=== PATIENT | female | born 1960 | race African-American/Black ===

== ENCOUNTER 2017-03-27 13:39 | Emergency (ER) | payer MEDICARE, OTHER ==
[~2017-03-27] VITALS: Ht 162.6 cm; Wt 82.6 kg
--- NOTE | 2017-03-27 14:43 | Emergency Room Report ---
History of Present Illness General Chief Complaint: Overdose Source: Patient Present Illness HPI The patient presents after taking both morphine 15 mg and Dilaudid 4 mg that same time period when she realized she did this she started getting nauseated and queasy and also felt anxiety. She also felt very sleepy and this concerned her. The patient is being treated for ovarian cancer. She's had 7 courses of chemotherapy and is being evaluated for possible eighth. She denies any abdominal pain at this time. The patient denies any fevers, chills, dysuria, diarrhea, chest pain, shortness of breath. There's no headache and no weakness although she feels anxious and somewhat queasy. Allergies: Coded Allergies: ASPIRIN (Verified Allergy, Unknown, 03/27/17) LATEX (Verified Allergy, Unknown, 03/27/17) PINEAPPLE (Verified Allergy, Unknown, 03/27/17) STRAWBERRY (Verified Allergy, Unknown, 03/27/17) Patient History Past Medical History: see triage record Past Surgical History: other - portacath Social History Narrative at home Now: No Reviewed Nursing Documentation: PMH: Agreed, PSxH: Agreed Nursing Documentation-PMH Hx Hypertension: Yes Hx Cancer: Yes - OVARIAN Review of Systems All Other Systems: negative except mentioned in HPI Physical Exam Vital Signs Date Time Temp Pulse Resp B/P Pulse Ox O2 Delivery O2 Flow Rate FiO2 03/27/17 13:44 98.2 80 15 146/87 97 Room Air Sp02 EP Interpretation: reviewed, normal General Appearance: well appearing, no apparent distress, GCS 15 Head: normocephalic Eyes: bilateral eye PERRL, bilateral eye normal inspection ENT: moist mucus membranes Neck: supple Respiratory: lungs clear, normal breath sounds, other - port R chest Cardiovascular #1: regular rate, rhythm Cardiovascular #2: 2+ radial (R) Gastrointestinal: normal inspection, normal bowel sounds, non tender, no mass, non-distended Musculoskeletal: back normal, gait/station normal, normal range of motion Neurologic: alert, oriented x3, grossly normal Psychiatric: anxious Skin: normal inspection, warm/dry, other - alopecia Medical Decision Making ER Course Patient presents after taking both morphine and a lot of at the same time. She' s nauseated this time. Cardiac monitoring and observation is indicated at this time. In addition lab evaluation be undertaken. The patient will be treated with Zofran. EKG Diagnostic Results Rate: normal Rhythm: NSR ST Segments: no acute changes Rhythm Strip Diag. Results EP Interpretation: yes Rhythm: NSR, no PVC's, no ectopy Chest X-Ray Diagnostic Results Chest X-Ray Ordered: No Status: improved Oh Almonte M.D. Mar 27, 2017 14:43
[2017-03-27 14:55] LABS: APPEARANCE,URINE CLEAR; KETONES,URINE NEGATIVE (NEGATIVE); LEUKOCYTE ESTERASE ,URINE 1+ (NEGATIVE); NITRITE,URINE NEGATIVE (NEGATIVE); PH,URINE 6 (4.5-8.0); PROTEIN,URINE NEGATIVE (NEGATIVE); UROBILINOGEN,URINE NORMAL MG/DL (0.0-1.0)
[2017-03-27 15:09] LABS: BACTERIA,URINE FEW /HPF; RBC,URINE 0-2 /HPF (0 - 2); SQUAMOUS EPITHELIAL CELL,UR FEW /LPF (NONE/OCC); WBC,URINE 0-2 /HPF (0 - 2)
[2017-03-27] MEDS ORDERED: PROCHLORPERAZINE5 MG ORAL (15:29)
[2017-03-27] MEDS ORDERED: LOSARTAN POTASS50 MG ORAL (15:29)
[2017-03-27] MEDS ORDERED: KLOR-CON20 MEQ ORAL (15:29)
[2017-03-27] MEDS ORDERED: MORPHINE IR15 MG ORAL (15:29)
[2017-03-27] MEDS ORDERED: DILAUDID8 MG PO (15:29)
[2017-03-27] MEDS ORDERED: DYAZIDE1 CAP ORAL (15:29)
[2017-03-27 15:46] LABS: ALANINE AMINOTRANSFERASE 12 U/L (3-33); ALBUMIN/GLOBULIN RATIO 1.4 (1.0-2.7); ANION GAP 16 (5-15); ASPARTATE AMINO TRANSFERASE 14 U/L (5-40); CALCIUM 9.8 mg/dL (8.6-10.2); CARBON DIOXIDE 25 mEQ/L (20-30); CHLORIDE 98 mEQ/L (98-107); CREATININE 0.9 mg/dL (0.5-0.9); GLOMERULAR FILTRATION RATE > 60 mL/min (>60); HEMOLYSIS 7; LIPASE 14 U/L (< 60); POTASSIUM 3.6 mEQ/L (3.4-4.9); SODIUM 139 mEQ/L (135-145); TOTAL PROTEIN 7.3 g/dL (6.6-8.7)
[2017-03-27 15:50] LABS: BASOPHILS % (AUTO) 1.3 % (0.0-2.0); EOSINOPHILS % (AUTO) 1.6 % (0.0-3.0); LYMPHOCYTES % (AUTO) 32.4 % (20.0-45.0); MEAN CORPUSCULAR HEMOGLOBIN 34.2 PG (27.0-31.0); MEAN CORPUSCULAR VOLUME 103 FL (80-99); MEAN PLATELET VOLUME 7.9 FL (6.5-10.1); MONOCYTES % (AUTO) 8.7 % (1.0-10.0); PLATELET COUNT 170 K/UL (150-450); RED BLOOD COUNT 3.23 M/UL (4.20-5.40); RED CELL DISTRIBUTION WIDTH 16.1 % (11.6-14.8); WHITE BLOOD COUNT 4.5 K/UL (4.8-10.8)
[2017-03-27 16:00] VITALS: BP 120/53
[2017-03-27] MEDS ORDERED: Heparin 5000 units/ml inj IV ONE (17:00)
[2017-03-27] MEDS ORDERED: Heparin Sod 1000 units/ml 10ml INJ ONE (17:30)
[2017-03-27 17:50] VITALS: BP 120/53
== END 2017-03-27 17:50 | disposition home or self-care (01) ==
LOC: EMR 14:18
DX: R11.0 Nausea (principal); F11.90 Opioid use, unspecified, uncomplicated; I10 Essential (primary) hypertension; Z85.43 Personal history of malignant neoplasm of ovary; Z88.6 Allergy status to analgesic agent; Z88.0 Allergy status to penicillin; Z91.018 Allergy to other foods; Z91.040 Latex allergy status
CPT/HCPCS: 36415; 80053; 81003; 83690; 85025; 93005; 96360; 96374; 99284; J1644; J2405

== ENCOUNTER 2017-04-25 11:09 | Inpatient (IN) | payer MEDICARE, OTHER ==
[~2017-04-25] VITALS: Ht 165.1 cm; Wt 83.5 kg
[~2017-04-25 11:09] MED LIST: DILAUDID8 MG PO; DYAZIDE1 CAP ORAL; KLOR-CON20 MEQ ORAL; LOSARTAN POTASS50 MG ORAL; MORPHINE IR15 MG ORAL; PROCHLORPERAZINE5 MG ORAL
[2017-04-25] MEDS ORDERED: Morphine Sulfate 4mg/ml Inj IVP ONE (11:45)
--- NOTE | 2017-04-25 11:57 | Emergency Room Report ---
History of Present Illness General Chief Complaint: Abdominal Pain Source: Patient, Medical Record (Oh Almonte M.D.) Present Illness HPI Patient presents with vomiting and abdominal pain which began yesterday at 11 am. The pain is severe. Severe left lower quadrant. She unable to keep down any medications. Pain with some radiation to back. Unable to take pain medicines (or others) due to vomiting. The patient was seen by me recently. Has a history of ovarian cancer and is on chemotherapy. Also has a history of diverticulitis. She also has diarrhea. She's had C. difficile colitis in the past. I evaluated her last month for opiate excess and anxiety. She was improved. No chest pain, rashes (aside from alopecia), joint pain. Depression over dx. (Oh Almonte M.D.) Allergies: Coded Allergies: ASPIRIN (Verified Allergy, Unknown, 03/27/17) LATEX (Verified Allergy, Unknown, 03/27/17) PINEAPPLE (Verified Allergy, Unknown, 03/27/17) STRAWBERRY (Verified Allergy, Unknown, 03/27/17) Patient History Past Medical History: see triage record Social History: Denies: smoking Social History Narrative at home Last Menstrual Period: 10 Years Reviewed Nursing Documentation: PMH: Agreed, PSxH: Agreed (Oh Almonte M.D.) Nursing Documentation-PMH Past Medical History: No History, Except For Hx Hypertension: Yes Hx Cancer: Yes - OVARIAN Hx Gastrointestinal Problems: Yes - Diverticulitis, C. diff (Oh Almonte M.D.) Review of Systems All Other Systems: negative except mentioned in HPI (Oh Almonte M.D.) Physical Exam Vital Signs Date Time Temp Pulse Resp B/P Pulse Ox O2 Delivery O2 Flow Rate FiO2 04/25/17 11:17 98.2 97 16 146/95 98 Room Air Sp02 EP Interpretation: reviewed, normal General Appearance: well appearing, no apparent distress, GCS 15, non-toxic, obese Head: normocephalic Eyes: bilateral eye PERRL, bilateral eye normal inspection ENT: moist mucus membranes Neck: supple Respiratory: lungs clear, normal breath sounds Cardiovascular #1: regular rate, rhythm Cardiovascular #2: 2+ radial (R) Gastrointestinal: normal inspection, normal bowel sounds, no mass, non- distended, no rebound, guarding, tenderness - LLQ Musculoskeletal: back normal, gait/station normal, normal range of motion Neurologic: alert, oriented x3, grossly normal Psychiatric: depressed affect Skin: warm/dry, other - alopecia - hair growing back (Oh Almonte M.D.) Medical Decision Making Diagnostic Impression: Primary Impression: Abdominal pain Qualified Codes: R10.32 - Left lower quadrant pain Additional Impressions: Vomiting Qualified Codes: R11.2 - Nausea with vomiting, unspecified Diverticulitis Qualified Codes: K57.32 - Diverticulitis of large intestine without perforation or abscess without bleeding ER Course Patient with severe LLQ pain since yesterday. Ddx: diverticulitis, UTI, pyelonephritis, GItis, medication reaction, dehydration, opiate dependence, anxiety, cancer-related process amongst others. Evaluation with labs, CT abd pelvis. Hydration and analgesia. Ordered C. diff. Unable to do CT with IV contrast due to elevated creat. WBC normal. Lytes with renal insufficiency. Improved with analgesia and hydration. CT pending. Admit med, Dr. Pandya. Signed out to Dr. Rivera. Laboratory Tests Test 04/25/17 12:00 04/25/17 13:47 White Blood Count 8.3 K/UL (4.8-10.8) Red Blood Count 4.61 M/UL (4.20-5.40) Hemoglobin 15.8 G/DL (12.0-16.0) Hematocrit 47.9 % (37.0-47.0) H Mean Corpuscular Volume 104 FL (80-99) H Mean Corpuscular Hemoglobin 34.2 PG (27.0-31.0) H Mean Corpuscular Hemoglobin Concent 32.9 G/DL (32.0-36.0) Red Cell Distribution Width 11.9 % (11.6-14.8) Platelet Count 236 K/UL (150-450) Mean Platelet Volume 8.1 FL (6.5-10.1) Neutrophils (%) (Auto) 76.1 % (45.0-75.0) H Lymphocytes (%) (Auto) 17.3 % (20.0-45.0) L Monocytes (%) (Auto) 5.2 % (1.0-10.0) Eosinophils (%) (Auto) 1.0 % (0.0-3.0) Basophils (%) (Auto) 0.4 % (0.0-2.0) Prothrombin Time 10.0 SEC (9.30-11.50) Prothrombin Time INR 1.0 (0.9-1.1) PTT 23 SEC (23-33) Sodium Level 143 mEQ/L (135-145) Potassium Level 3.6 mEQ/L (3.4-4.9) Chloride Level 99 mEQ/L (98-107) Carbon Dioxide Level 28 mEQ/L (20-30) Anion Gap 16 (5-15) H Blood Urea Nitrogen 22 mg/dL (7-23) Creatinine 1.3 mg/dL (0.5-0.9) H Estimate Glomerular Filtration Rate 51.0 mL/min (>60) Glucose Level 142 mg/dL (74-106) H Calcium Level 10.7 mg/dL (8.6-10.2) H Total Bilirubin 0.5 mg/dL (0.0-1.2) Aspartate Amino Transferase (AST) 14 U/L (5-40) Alanine Aminotransferase (ALT) 9 U/L (3-33) Alkaline Phosphatase 53 U/L (35-104) Total Protein 8.0 g/dL (6.6-8.7) Albumin 4.7 g/dL (3.5-5.2) Globulin 3.3 g/dL Albumin/Globulin Ratio 1.4 (1.0-2.7) Lipase 11 U/L (< 60) Urine Color Yellow Urine Appearance Slightly cloudy Urine pH 5 (4.5-8.0) Urine Specific [place] 1.025 (1.005-1.035) Urine Protein 2+ (NEGATIVE) H Urine Glucose (UA) Negative (NEGATIVE) Urine Ketones 1+ (NEGATIVE) H Urine Occult Blood 4+ (NEGATIVE) H Urine Nitrite Negative (NEGATIVE) Urine Bilirubin Negative (NEGATIVE) Urine Urobilinogen 1 MG/DL (0.0-1.0) H Urine Leukocyte Esterase 2+ (NEGATIVE) H Urine RBC 5-10 /HPF (0 - 2) H Urine WBC 2-4 /HPF (0 - 2) Urine Squamous Epithelial Cells Moderate /LPF (NONE/OCC) H Urine Bacteria Occasional /HPF (NONE) (Oh Almonte M.D.) ER Course I assumed care of this patient from Dr. Almonte. This patient was awaiting results of the CT abdomen and pelvis. CT abdomen and pelvis showed diverticulitis. The patient was given Cipro and Flagyl. She's also given Zofran. She is admitted for further evaluation and treatment. Labs Test 04/25/17 12:00 04/25/17 13:47 White Blood Count 8.3 K/UL (4.8-10.8) Red Blood Count 4.61 M/UL (4.20-5.40) Hemoglobin 15.8 G/DL (12.0-16.0) Hematocrit 47.9 % (37.0-47.0) Mean Corpuscular Volume 104 FL (80-99) Mean Corpuscular Hemoglobin 34.2 PG (27.0-31.0) Mean Corpuscular Hemoglobin Concent 32.9 G/DL (32.0-36.0) Red Cell Distribution Width 11.9 % (11.6-14.8) Platelet Count 236 K/UL (150-450) Mean Platelet Volume 8.1 FL (6.5-10.1) Neutrophils (%) (Auto) 76.1 % (45.0-75.0) Lymphocytes (%) (Auto) 17.3 % (20.0-45.0) Monocytes (%) (Auto) 5.2 % (1.0-10.0) Eosinophils (%) (Auto) 1.0 % (0.0-3.0) Basophils (%) (Auto) 0.4 % (0.0-2.0) Prothrombin Time 10.0 SEC (9.30-11.50) Prothromb Time International Ratio 1.0 (0.9-1.1) Activated Partial Thromboplast Time 23 SEC (23-33) Sodium Level 143 mEQ/L (135-145) Potassium Level 3.6 mEQ/L (3.4-4.9) Chloride Level 99 mEQ/L (98-107) Carbon Dioxide Level 28 mEQ/L (20-30) Anion Gap 16 (5-15) Blood Urea Nitrogen 22 mg/dL (7-23) Creatinine 1.3 mg/dL (0.5-0.9) Estimat Glomerular Filtration Rate 51.0 mL/min (>60) Glucose Level 142 mg/dL (74-106) Calcium Level 10.7 mg/dL (8.6-10.2) Total Bilirubin 0.5 mg/dL (0.0-1.2) Aspartate Amino Transf (AST/SGOT) 14 U/L (5-40) Alanine Aminotransferase (ALT/SGPT) 9 U/L (3-33) Alkaline Phosphatase 53 U/L (35-104) Total Protein 8.0 g/dL (6.6-8.7) Albumin 4.7 g/dL (3.5-5.2) Globulin 3.3 g/dL Albumin/Globulin Ratio 1.4 (1.0-2.7) Lipase 11 U/L (< 60) Urine Color Yellow Urine Appearance Slightly cloudy Urine pH 5 (4.5-8.0) Urine Specific [place] 1.025 (1.005-1.035) Urine Protein 2+ (NEGATIVE) Urine Glucose (UA) Negative (NEGATIVE) Urine Ketones 1+ (NEGATIVE) Urine Occult Blood 4+ (NEGATIVE) Urine Nitrite Negative (NEGATIVE) Urine Bilirubin Negative (NEGATIVE) Urine Urobilinogen 1 MG/DL (0.0-1.0) Urine Leukocyte Esterase 2+ (NEGATIVE) Urine RBC 5-10 /HPF (0 - 2) Urine WBC 2-4 /HPF (0 - 2) Urine Squamous Epithelial Cells Moderate /LPF (NONE/OCC) Urine Bacteria Occasional /HPF (NONE) (RAVINDRA CEBALLOS D.O.) EKG Diagnostic Results Rate: normal Rhythm: NSR ST Segments: no acute changes (Oh Almonte M.D.) Rhythm Strip Diag. Results EP Interpretation: yes Rhythm: NSR, no PVC's, no ectopy (Oh Almonte M.D.) Last Vital Signs Date Time Temp Pulse Resp B/P Pulse Ox O2 Delivery O2 Flow Rate FiO2 04/25/17 20:00 96.9 74 18 134/73 Room Air 04/25/17 18:10 98 Status: improved (Oh Almonte M.D.) Disposition: ADMITTED INPATIENT Condition: Serious Referrals: NON PHYSICIAN (PCP) Oh Almonte M.D. Apr 25, 2017 11:57 RAVINDRA CEBALLOS D.O. Apr 25, 2017 16:28
[2017-04-25] MEDS ORDERED: PROTONIX40 MG ORAL (11:59)
[2017-04-25] MEDS ORDERED: MAXZIDE 37.5 M1 EAC1 PO (11:59)
[2017-04-25] MEDS ORDERED: FUROSEMIDE20 M1 ORAL (11:59)
[2017-04-25] MEDS ORDERED: COLACE100 MG ORAL (11:59)
[2017-04-25] MEDS ORDERED: COZAAR50 MG ORAL (11:59)
[2017-04-25] MEDS ORDERED: DEXILANT60 MG ORAL (12:01)
[2017-04-25] MEDS ORDERED: IMODIUM A-D2 M2 PO (12:01)
[2017-04-25] MEDS ORDERED: ZOFRAN8 MG ORAL (12:01)
[2017-04-25] MEDS ORDERED: VENTOLIN HFA18 GM INH (12:03)
[2017-04-25] MEDS ORDERED: BREO ELLIPTA 11 EACH IH (12:03)
[2017-04-25 12:18] VITALS: BP 148/79
[2017-04-25 12:23] LABS: BASOPHILS % (AUTO) 0.4 % (0.0-2.0); LYMPHOCYTES % (AUTO) 17.3 % (20.0-45.0); MEAN CORPUSCULAR HEMOGLOBIN 34.2 PG (27.0-31.0); MEAN CORPUSCULAR HGB CONC 32.9 G/DL (32.0-36.0); MEAN CORPUSCULAR VOLUME 104 FL (80-99); MEAN PLATELET VOLUME 8.1 FL (6.5-10.1); MONOCYTES % (AUTO) 5.2 % (1.0-10.0); NEUTROPHILS % (AUTO) 76.1 % (45.0-75.0); PLATELET COUNT 236 K/UL (150-450); RED BLOOD COUNT 4.61 M/UL (4.20-5.40); RED CELL DISTRIBUTION WIDTH 11.9 % (11.6-14.8); WHITE BLOOD COUNT 8.3 K/UL (4.8-10.8)
[2017-04-25 12:36] LABS: ALBUMIN/GLOBULIN RATIO 1.4 (1.0-2.7); CALCIUM 10.7 mg/dL (8.6-10.2); CREATININE 1.3 mg/dL (0.5-0.9); POTASSIUM 3.6 mEQ/L (3.4-4.9)
[2017-04-25 14:00] VITALS: BP 137/85
[2017-04-25 14:11] LABS: APPEARANCE,URINE SLIGHTLY CLOUDY; KETONES,URINE 1+ (NEGATIVE); LEUKOCYTE ESTERASE ,URINE 2+ (NEGATIVE); NITRITE,URINE NEGATIVE (NEGATIVE); PH,URINE 5 (4.5-8.0); PROTEIN,URINE 2+ (NEGATIVE); UROBILINOGEN,URINE 1 MG/DL (0.0-1.0)
[2017-04-25 14:29] LABS: BACTERIA,URINE OCCASIONAL /HPF; SQUAMOUS EPITHELIAL CELL,UR MODERATE /LPF (NONE/OCC)
[2017-04-25] MEDS ORDERED: Morphine Sulfate 4mg/ml Inj IVP PRN (16:15)
[2017-04-25] MEDS ORDERED: metroNIDAZOLE 500mg 100 ML IVPB ONE (16:30)
[2017-04-25] MEDS ORDERED: Morphine Sulfate 2mg/ml Inj IM PRN (16:45)
[2017-04-25 17:08] LABS: HEMOGLOBIN A1C 5.3 % (< 6.0)
[2017-04-25 17:16] LABS: THYROID STIMULATING HORMONE 3.08 uIU/mL (0.300-4.500)
[2017-04-25 17:17] VITALS: BP 130/85
[2017-04-25 18:05] VITALS: BP 116/68
[2017-04-25 20:00] VITALS: BP 134/73
[2017-04-25] MEDS: D5NS 1,000 ML IV SCH (20:01)
[2017-04-25] MEDS ORDERED: Docusate 100mg cap ORAL PRN (21:15)
--- NOTE | 2017-04-25 22:43 | Consultation ---
Consult Note Consult Note ID DIC # [id number] TAMEKA LITTLEJOHN M.D. Apr 25, 2017 22:43
[2017-04-25] MEDS: Morphine Sulfate 2mg/ml Inj IVP PRN (23:03)
[2017-04-25] MEDS: metroNIDAZOLE 500mg 100 ML IVPB SCH (23:04)
[2017-04-25] MEDS: Heparin 5000 units/ml inj SUBQ SCH (23:05)
[2017-04-26] VITALS: BP 130/73
[2017-04-26 04:00] VITALS: BP 139/84
[2017-04-26] MEDS: Morphine Sulfate 2mg/ml Inj IVP PRN ×3 (04:24→18:59)
[2017-04-26] MEDS: D5NS 1,000 ML IV SCH ×2 (05:05→18:30)
[2017-04-26] MEDS: metroNIDAZOLE 500mg 100 ML IVPB SCH ×2 (05:06→18:59)
[2017-04-26] MEDS: NovoLOG Insulin Flexpen SUBQ SCH ×4 (06:30→20:55)
[2017-04-26 06:53] LABS: BASOPHILS % (AUTO) 0.6 % (0.0-2.0); EOSINOPHILS % (AUTO) 6.1 % (0.0-3.0); LYMPHOCYTES % (AUTO) 29.4 % (20.0-45.0); MEAN CORPUSCULAR HEMOGLOBIN 35.4 PG (27.0-31.0); MEAN CORPUSCULAR HGB CONC 33.5 G/DL (32.0-36.0); MEAN CORPUSCULAR VOLUME 106 FL (80-99); MEAN PLATELET VOLUME 7.4 FL (6.5-10.1); MONOCYTES % (AUTO) 7.4 % (1.0-10.0); NEUTROPHILS % (AUTO) 56.6 % (45.0-75.0); PLATELET COUNT 162 K/UL (150-450); RED BLOOD COUNT 3.33 M/UL (4.20-5.40); RED CELL DISTRIBUTION WIDTH 12.1 % (11.6-14.8); WHITE BLOOD COUNT 5.9 K/UL (4.8-10.8)
[2017-04-26 06:56] LABS: ALANINE AMINOTRANSFERASE 8 U/L (3-33); ALBUMIN/GLOBULIN RATIO 1.2 (1.0-2.7); ANION GAP 12 (5-15); ASPARTATE AMINO TRANSFERASE 13 U/L (5-40); CALCIUM 9.4 mg/dL (8.6-10.2); CARBON DIOXIDE 27 mEQ/L (20-30); CHLORIDE 106 mEQ/L (98-107); CREATININE 0.9 mg/dL (0.5-0.9); GLOMERULAR FILTRATION RATE > 60 mL/min (>60); HEMOLYSIS 4; POTASSIUM 3.4 mEQ/L (3.4-4.9); SODIUM 145 mEQ/L (135-145); TOTAL PROTEIN 6.4 g/dL (6.6-8.7)
--- NOTE | 2017-04-26 08:00 | Consultation ---
DATE OF CONSULTATION: 04/25/2017 INFECTIOUS DISEASES CONSULTATION CONSULTING PHYSICIAN: Shawn Boyd M.D. REFERRING PHYSICIAN: Christos Pandya M.D. REASON FOR CONSULTATION: Evaluation of the patient for diarrhea and antibiotic management. HISTORY OF PRESENT ILLNESS: The patient is a 57-year-old female with multiple medical problems as listed below, who was admitted due to nausea, vomiting, and diarrhea x1 day. Infectious Disease consultation has been requested for further evaluation of the patient's antibiotic management. PAST MEDICAL HISTORY: 1. Hypertension. 2. History of diverticulitis. 3. History of ovarian cancer, status post chemo (last due 02/2017). 4. History of diabetes. 5. Status post placement. MEDICATIONS: Cipro and Flagyl. ALLERGIES: No drug allergies to antibiotics. FAMILY HISTORY: Noncontributory. REVIEW OF SYSTEMS: HEENT: No recent change in vision or hearing. Pulmonary: No cough or shortness of breath. Cardiovascular: No chest pain or palpitations. Gastrointestinal: As mentioned above. : No dysuria. PHYSICAL EXAMINATION: VITAL SIGNS: Temperature 96.9, blood pressure 134/72, pulse 74, and respiratory rate 18. HEENT: Mild pale conjunctivae. NECK: No lymphadenopathy. CHEST: Clear. HEART: S1 and S2. ABDOMEN: Soft. Mild generalized tenderness hyperactive. EXTREMITIES: No cyanosis. NEUROLOGIC: Awake and alert. LABORATORY DATA: WBC 8.8, hemoglobin 15, and platelets 236,000. Urinalysis, 5 to 10 red blood cells and 2 to 4 white blood cells. BUN 22 and creatinine 1.3. Liver function tests are unremarkable. ASSESSMENT: The patient is a 57-year-old female with multiple medical problems, who also has, 1. Nausea and vomiting. 2. Diarrhea. 3. Rule out Clostridium difficile/Salmonella and Shigella. 4. Most likely the above is due to viral enteritis. PLAN: 1. We will continue the patient on Cipro and Flagyl day #10/10. 2. Monitor CBC. 3. Monitor BMP. 4. Monitor cultures (stool and blood). 5. Stool for C. difficile. 6. We will follow up CT scan of the abdomen result. Based on the patient's clinical course and labs, we will do further recommendations. Thank you, Dr. Pandya ,for allowing me to participate in the care of this patient. I will follow the patient with you during this hospitalization. Shawn Boyd M.D. DR: GENE JOB#: [id number] CC:
--- NOTE | 2017-04-26 08:30 | Consultation ---
DATE OF CONSULTATION: 04/26/2017 GASTROENTEROLOGY CONSULTATION CHIEF COMPLAINT: Nausea, vomiting, and abdominal pain. HISTORY OF PRESENT ILLNESS: The patient is a very pleasant unfortunate 57-year-old female with past medical history of ovarian cancer diagnosed a year ago. The patient is status post chemo and surgery. The patient also has a history of diverticulitis presented to the hospital with complaint of one day of abdominal pain, nausea, and vomiting. According to her, this was very similar to her prior diverticulitis symptoms. Last colonoscopy was in 2010. No rectal bleeding. PAST MEDICAL HISTORY: 1. History of ovarian cancer. 2. Diabetes. 3. Hypertension. 4. Diverticulitis. 5. Questionable C. difficile colitis. ALLERGIES: Allergy to Lasix, aspirin, strawberries, and pineapples. MEDICATIONS: Please see medication reconciliation list. SOCIAL HISTORY: Denies any tobacco, alcohol, or illicit drug abuse. FAMILY HISTORY: Noncontributory. PAST SURGICAL HISTORY: Hysterectomy, oophorectomy, appendectomy, and cholecystectomy. REVIEW OF SYSTEMS: Ten point review of system was performed and pertinent positives in HPI. PHYSICAL EXAMINATION: GENERAL: This is a well-developed female. VITAL SIGNS: Temperature 97.7 degrees, pulse 71 , respirations 18, and blood pressure is 129/84. HEENT: Normocephalic and atraumatic. Sclerae anicteric. NECK: Supple. No lymphadenopathy. CARDIOVASCULAR: Regular rate and rhythm. Plus S1 and S2. LUNGS: Clear to auscultation bilaterally. ABDOMEN: There is a scar in the midline from prior abdominal surgeries. Abdomen is soft. Bowel sounds are hypoactive. There is tenderness to palpation in epigastric, right upper quadrant, and left lower quadrant. No rebound. No guarding. No peritoneal sign. EXTREMITIES: No cyanosis. No clubbing. No edema. LABORATORY DATA: White count is 8.3, hemoglobin 15, hematocrit 47, and platelet count is 236,000. Chem-7, BUN is 22 and creatinine is 1.3. Liver function tests grossly normal. ASSESSMENT: This is a 57-year-old female with acute onset of nausea, vomiting, and history of diverticulitis. According to the patient, it seems like another diverticulitis to her. PLAN: To give the patient clear liquid diet. Antibiotics per ID. Followup on CT, which has been ordered and to get the results of it. Hold off any colonoscopy at this time. I want to thank, Dr. Pandya, for this kind referral. Marcus Chavez M.D. DR: JONES JOB#: [id number] CC: Christos Pandya M.D.; Fax#: [phone]
[2017-04-26] MEDS: Losartan 50mg tab ORAL SCH (09:24)
[2017-04-26] MEDS: Heparin 5000 units/ml inj SUBQ SCH ×2 (09:30→20:55)
--- NOTE | 2017-04-26 10:32 | History & Physical ---
History and Physical History & Physicial Patient is seen and examined. Full Dictation in progress Christos Pandya MD Apr 26, 2017 10:32
[2017-04-26] MEDS ORDERED: D5NS 1000ml IV ONE (10:39)
[2017-04-26] MEDS ORDERED: Tubing IV Secondary IV ONE ×2 (10:39→17:00)
--- NOTE | 2017-04-26 11:39 | Infectious Diseases Prog Note ---
Assessment/Plan Assessment/Plan ASSESSMENT: The patient is a 57-year-old female with Nausea and vomiting Diarrhea ? viral enteritis vs diverticulitis Clostridium difficile : neg Hypertension. History of diverticulitis. History of ovarian cancer, status post chemo (last due 02/2017). History of diabetes. Status post Porth C Cath placement PLAN: cont pt on Cipro and Flagyl day # 2 / 5 Monitor CBC Monitor BMP. Monitor cultures (stool and blood). CT scan of the abdomen result :P GI is following Subjective Allergies: Coded Allergies: ASPIRIN (Verified Allergy, Unknown, 03/27/17) LATEX (Verified Allergy, Unknown, 03/27/17) PINEAPPLE (Verified Allergy, Unknown, 03/27/17) STRAWBERRY (Verified Allergy, Unknown, 03/27/17) Subjective afebrile Objective Vital Signs Last 24 Hour Vital Signs Date Time Temp Pulse Resp B/P Pulse Ox O2 Delivery O2 Flow Rate FiO2 04/26/17 09:24 139/84 04/26/17 04:00 97.7 71 18 139/84 98 Room Air 04/26/17 00:00 97.5 68 16 130/73 98 Room Air 04/25/17 20:00 96.9 74 18 134/73 Room Air 04/25/17 18:10 73 13 116/68 98 Room Air 04/25/17 18:05 99.0 73 13 116/68 98 Room Air 04/25/17 17:17 99.1 82 18 130/85 100 Room Air 04/25/17 14:00 78 17 137/85 99 Room Air 04/25/17 12:18 97.8 91 17 148/79 99 Room Air Height (Feet): 5 Height (Inches): 5.00 Weight (Pounds): 184 HEENT: atraumatic Respiratory/Chest: normal breath sounds Cardiovascular: regular rhythm Abdomen: no organomegaly Microbiology Date/Time Source Procedure Growth Status 04/25/17 18:00 Stool Clostridium difficile Toxin Assay - Final Complete Laboratory Tests Test 04/25/17 12:00 04/25/17 13:47 04/25/17 18:00 04/25/17 20:55 White Blood Count 8.3 K/UL (4.8-10.8) Red Blood Count 4.61 M/UL (4.20-5.40) Hemoglobin 15.8 G/DL (12.0-16.0) Hematocrit 47.9 % (37.0-47.0) H Mean Corpuscular Volume 104 FL (80-99) H Mean Corpuscular Hemoglobin 34.2 PG (27.0-31.0) H Mean Corpuscular Hemoglobin Concent 32.9 G/DL (32.0-36.0) Red Cell Distribution Width 11.9 % (11.6-14.8) Platelet Count 236 K/UL (150-450) Mean Platelet Volume 8.1 FL (6.5-10.1) Neutrophils (%) (Auto) 76.1 % (45.0-75.0) H Lymphocytes (%) (Auto) 17.3 % (20.0-45.0) L Monocytes (%) (Auto) 5.2 % (1.0-10.0) Eosinophils (%) (Auto) 1.0 % (0.0-3.0) Basophils (%) (Auto) 0.4 % (0.0-2.0) Prothrombin Time 10.0 SEC (9.30-11.50) Prothromb Time International Ratio 1.0 (0.9-1.1) Activated Partial Thromboplast Time 23 SEC (23-33) Sodium Level 143 mEQ/L (135-145) Potassium Level 3.6 mEQ/L (3.4-4.9) Chloride Level 99 mEQ/L (98-107) Carbon Dioxide Level 28 mEQ/L (20-30) Anion Gap 16 (5-15) H Blood Urea Nitrogen 22 mg/dL (7-23) Creatinine 1.3 mg/dL (0.5-0.9) H Estimat Glomerular Filtration Rate 51.0 mL/min (>60) Glucose Level 142 mg/dL (74-106) H Hemoglobin A1c 5.3 % (< 6.0) Calcium Level 10.7 mg/dL (8.6-10.2) H Total Bilirubin 0.5 mg/dL (0.0-1.2) Aspartate Amino Transf (AST/SGOT) 14 U/L (5-40) Alanine Aminotransferase (ALT/SGPT) 9 U/L (3-33) Alkaline Phosphatase 53 U/L (35-104) Total Protein 8.0 g/dL (6.6-8.7) Albumin 4.7 g/dL (3.5-5.2) Globulin 3.3 g/dL Albumin/Globulin Ratio 1.4 (1.0-2.7) Lipase 11 U/L (< 60) Thyroid Stimulating Hormone (TSH) 3.080 uIU/mL (0.300-4.500) Urine Color Yellow Urine Appearance Slightly cloudy Urine pH 5 (4.5-8.0) Urine Specific [place] 1.025 (1.005-1.035) Urine Protein 2+ (NEGATIVE) H Urine Glucose (UA) Negative (NEGATIVE) Urine Ketones 1+ (NEGATIVE) H Urine Occult Blood 4+ (NEGATIVE) H Urine Nitrite Negative (NEGATIVE) Urine Bilirubin Negative (NEGATIVE) Urine Urobilinogen 1 MG/DL (0.0-1.0) H Urine Leukocyte Esterase 2+ (NEGATIVE) H Urine RBC 5-10 /HPF (0 - 2) H Urine WBC 2-4 /HPF (0 - 2) Urine Squamous Epithelial Cells Moderate /LPF (NONE/OCC) H Urine Bacteria Occasional /HPF (NONE) Stool Occult Blood Pending Lactic Acid Level 1.50 mmol/L (0.66-2.22) Test 04/26/17 05:15 White Blood Count 5.9 K/UL (4.8-10.8) Red Blood Count 3.33 M/UL (4.20-5.40) L Hemoglobin 11.8 G/DL (12.0-16.0) L Hematocrit 35.2 % (37.0-47.0) L Mean Corpuscular Volume 106 FL (80-99) H Mean Corpuscular Hemoglobin 35.4 PG (27.0-31.0) H Mean Corpuscular Hemoglobin Concent 33.5 G/DL (32.0-36.0) Red Cell Distribution Width 12.1 % (11.6-14.8) Platelet Count 162 K/UL (150-450) Mean Platelet Volume 7.4 FL (6.5-10.1) Neutrophils (%) (Auto) 56.6 % (45.0-75.0) Lymphocytes (%) (Auto) 29.4 % (20.0-45.0) Monocytes (%) (Auto) 7.4 % (1.0-10.0) Eosinophils (%) (Auto) 6.1 % (0.0-3.0) H Basophils (%) (Auto) 0.6 % (0.0-2.0) Sodium Level 145 mEQ/L (135-145) Potassium Level 3.4 mEQ/L (3.4-4.9) Chloride Level 106 mEQ/L (98-107) Carbon Dioxide Level 27 mEQ/L (20-30) Anion Gap 12 (5-15) Blood Urea Nitrogen 21 mg/dL (7-23) Creatinine 0.9 mg/dL (0.5-0.9) Estimat Glomerular Filtration Rate > 60 mL/min (>60) Glucose Level 100 mg/dL (74-106) Calcium Level 9.4 mg/dL (8.6-10.2) Total Bilirubin 0.4 mg/dL (0.0-1.2) Aspartate Amino Transf (AST/SGOT) 13 U/L (5-40) Alanine Aminotransferase (ALT/SGPT) 8 U/L (3-33) Alkaline Phosphatase 42 U/L (35-104) Total Protein 6.4 g/dL (6.6-8.7) L Albumin 3.6 g/dL (3.5-5.2) Globulin 2.8 g/dL Albumin/Globulin Ratio 1.2 (1.0-2.7) Current Medications Medications (Trade) Dose Ordered Sig/Kermit Route PRN Reason Start Time Stop Time Status Last Admin Dose Admin Acetaminophen (Tylenol) 650 mg Q4H PRN ORAL Mild Pain/Temp > 100.5 04/25/17 16:45 05/25/17 16:44 Ciprofloxacin (Cipro 400mg/ 200ml premix bag) 200 ml @ 200 mls/hr Q12HR IV 04/26/17 09:00 05/03/17 08:59 04/26/17 09:30 Dextrose (Dextrose 50%) STAT PRN IV Hypoglycemia 04/25/17 21:15 05/25/17 21:14 Dextrose/Sodium Chloride (D5ns) 1,000 ml @ 80 mls/hr [id number] IV 04/25/17 17:30 05/25/17 17:29 04/26/17 05:05 Docusate Sodium (Colace) 100 mg TIDPRN PRN ORAL Constipation 04/25/17 21:15 05/25/17 21:14 Furosemide (Lasix) 20 mg DAILY ORAL 04/26/17 09:00 05/26/17 08:59 04/26/17 09:23 Heparin Sodium (Porcine) 5000 units 5,000 units EVERY 12 HOURS SUBQ 04/25/17 21:00 05/25/17 20:59 04/26/17 09:30 Insulin Aspart (NovoLOG) BEFORE MEALS AND HS SUBQ 04/26/17 06:30 05/26/17 06:29 Losartan Potassium (Cozaar) 50 mg DAILY ORAL 04/26/17 09:00 05/26/17 08:59 04/26/17 09:24 Metronidazole 100 ml @ 100 mls/hr Q8HR IVPB 04/25/17 22:00 05/02/17 21:59 04/26/17 05:06 Morphine Sulfate (Morphine Sulfate) 2 mg Q4H PRN IVP MOD-SEV PAIN 04/25/17 21:30 05/02/17 21:29 04/26/17 10:03 Ondansetron HCl (Zofran) 4 mg Q6H PRN IVP Nausea & Vomiting 04/25/17 21:15 05/25/17 21:14 Pantoprazole (Protonix) 40 mg DAILY ORAL 04/25/17 18:00 05/25/17 17:59 04/26/17 09:23 Potassium Chloride (K-Dur) 20 meq DAILY ORAL 04/26/17 09:00 05/26/17 08:59 04/26/17 09:23 TAMEKA LITTLEJOHN M.D. Apr 26, 2017 11:39
[2017-04-26 12:00] VITALS: BP 132/70
--- NOTE | 2017-04-26 13:43 | General Progress Note ---
Assessment/Plan Status: stable Assessment/Plan 1- Acute Diverticulitis 2- C-diff colitis- history of 3- Ovarian CA survivor 4- HTN 5- GI-DVT prophylaxia Plan: GI- Dr Chavez notified current antibiotics Subjective ROS Limited/Unobtainable: No Constitutional: Reports: malaise, other - mild abd pain HEENT: Reports: no symptoms Cardiovascular: Reports: no symptoms Gastrointestinal/Abdominal: Reports: abdomen distended, abdominal pain Allergies: Coded Allergies: ASPIRIN (Verified Allergy, Unknown, 03/27/17) LATEX (Verified Allergy, Unknown, 03/27/17) PINEAPPLE (Verified Allergy, Unknown, 03/27/17) STRAWBERRY (Verified Allergy, Unknown, 03/27/17) Objective Last 24 Hour Vital Signs Date Time Temp Pulse Resp B/P Pulse Ox O2 Delivery O2 Flow Rate FiO2 04/26/17 12:00 97.4 68 20 132/70 98 Room Air 04/26/17 09:24 139/84 04/26/17 04:00 97.7 71 18 139/84 98 Room Air 04/26/17 00:00 97.5 68 16 130/73 98 Room Air 04/25/17 20:00 96.9 74 18 134/73 Room Air 04/25/17 18:10 73 13 116/68 98 Room Air 04/25/17 18:05 99.0 73 13 116/68 98 Room Air 04/25/17 17:17 99.1 82 18 130/85 100 Room Air 04/25/17 14:00 78 17 137/85 99 Room Air Intake and Output 04/25/17 04/26/17 19:00 07:00 Intake Total 1000 ml 920 ml Output Total 50 ml Balance 950 ml 920 ml Intake IV Total 1000 ml 920 ml Output Emesis 50 ml # Voids 1 Laboratory Tests 04/25/17 13:47: Urine Color Yellow, Urine Appearance Slightly cloudy, Urine pH 5, Urine Specific [place] 1.025, Urine Protein 2+H, Urine Glucose (UA) Negative, Urine Ketones 1+H, Urine Occult Blood 4+H, Urine Nitrite Negative, Urine Bilirubin Negative, Urine Urobilinogen 1H, Urine Leukocyte Esterase 2+H, Urine RBC 5-10H, Urine WBC 2-4, Urine Squamous Epithelial Cells ModerateH, Urine Bacteria Occasional 04/25/17 18:00: Stool Occult Blood [Pending] 04/25/17 20:55: Lactic Acid Level 1.50 04/26/17 05:15: White Blood Count 5.9, Red Blood Count 3.33L, Hemoglobin 11.8L, Hematocrit 35.2L , Mean Corpuscular Volume 106H, Mean Corpuscular Hemoglobin 35.4H, Mean Corpuscular Hemoglobin Concent 33.5, Red Cell Distribution Width 12.1, Platelet Count 162, Mean Platelet Volume 7.4, Neutrophils (%) (Auto) 56.6, Lymphocytes (% ) (Auto) 29.4, Monocytes (%) (Auto) 7.4, Eosinophils (%) (Auto) 6.1H, Basophils (%) (Auto) 0.6, Sodium Level 145, Potassium Level 3.4, Chloride Level 106, Carbon Dioxide Level 27, Anion Gap 12, Blood Urea Nitrogen 21, Creatinine 0.9, Estimat Glomerular Filtration Rate > 60, Glucose Level 100, Calcium Level 9.4, Total Bilirubin 0.4, Aspartate Amino Transf (AST/SGOT) 13, Alanine Aminotransferase (ALT/SGPT) 8, Alkaline Phosphatase 42, Total Protein 6.4L, Albumin 3.6, Globulin 2.8, Albumin/Globulin Ratio 1.2 Height (Feet): 5 Height (Inches): 5.00 Weight (Pounds): 184 General Appearance: alert EENT: PERRL/EOMI Neck: supple Cardiovascular: normal peripheral pulses Abdomen: guarding 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
--- NOTE | 2017-04-26 15:30 | History and Physical Report ---
DATE OF ADMISSION: 04/25/2017 SOURCE OF INFORMATION: Patient and EMR. HISTORY OF PRESENT ILLNESS: The patient is a pleasant 57-year-old female. She has known diagnosis of diverticulitis. She reported pain in the lower abdomen started 2 nights ago. The pain reported acute. No radiation. Associated with hematemesis, hematochezia, diarrhea, and nausea. The patient denies any chills or fever. The patient denies any headache or blurry vision. REVIEW OF SYSTEMS: All 9 elements of review of systems reviewed with the patient. Pertinent positives and negatives reported as above. PAST MEDICAL HISTORY: Diverticulitis, staged 4 ovarian cancer, status post hysterectomy and oophorectomy, and hypertension. PAST SURGICAL HISTORY: Hysterectomy and oophorectomy about 5-7 months ago. MEDICATIONS: Home medications including, but not limited to, potassium chloride, morphine sulfate, Dexilant, Ventolin, and ALLERGIES: Aspirin, latex, pineapple, strawberry. SOCIAL HISTORY: The patient denies history of illicit drug abuse, smoking, or alcohol abuse. The patient is single. She has no children. FAMILY HISTORY: Reviewed, noncontributory. PHYSICAL EXAMINATION: VITAL SIGNS: Blood pressure 140/80, temperature 98.2 degrees, pulse oximetry 98% on room air, respiratory rate 16, and pulse rate 95 to 100. HEAD AND NECK: Atraumatic and normocephalic. CHEST: Clear to auscultation. HEART: S1 and S2. Regular rate and rhythm. ABDOMEN: Positive for tenderness in the lower abdomen. No rebound tenderness. MUSCULOSKELETAL: No gross focal motor deficit. NEUROLOGY: The patient is awake, alert, and oriented x3. PSYCHIATRIC: Mood and affect appropriate and normal. LABORATORY DATA: Lab results dated 04/25/2017 showed WBC 8.3, hemoglobin 15.8, and platelets 238,000. Sodium 143, potassium 3.6, BUN 22, and creatinine 1.3. Liver function tests are within normal limits. ASSESSMENT: 1. Acute diverticulitis. 2. Clostridium difficile colitis - history of 3. Acute renal failure. 4. Ovarian cancer, status post hysterectomy and oophorectomy. 5. Hypertension. 6. Gastrointestinal and deep vein thrombosis prophylaxis. PLAN OF CARE: Continue with the current intravenous antibiotics. Continue with NPO status. GI, Dr. Chavez was consulted. Christos Pandya M.D. DR: FRANTZ JOB#: [id number] CC: SRIDHAR
[2017-04-26 16:09] VITALS: BP 113/74
[2017-04-26 20:00] VITALS: BP 125/76
[2017-04-27] VITALS: BP 118/69
[2017-04-27] MEDS: metroNIDAZOLE 500mg 100 ML IVPB SCH ×4 (00:56→22:15)
[2017-04-27] MEDS: Morphine Sulfate 2mg/ml Inj IVP PRN (00:57)
[2017-04-27 04:00] VITALS: BP 116/69
[2017-04-27] MEDS: NovoLOG Insulin Flexpen SUBQ SCH ×4 (06:15→20:45)
[2017-04-27] MEDS: D5NS 1,000 ML IV SCH ×2 (06:15→19:30)
[2017-04-27 08:36] VITALS: BP 119/70
[2017-04-27] MEDS: Losartan 50mg tab ORAL SCH (09:00)
[2017-04-27] MEDS: Heparin 5000 units/ml inj SUBQ SCH ×2 (09:00→20:26)
--- NOTE | 2017-04-27 09:09 | General Progress Note ---
Assessment/Plan Assessment/Plan 1. History of ovarian cancer. 2. Diabetes. 3. Hypertension. 4. Diverticulitis. 5. Questionable C. difficile colitis. advance diet fu stool studies fu CT abx per ID Subjective ROS Limited/Unobtainable: Yes Allergies: Coded Allergies: ASPIRIN (Verified Allergy, Unknown, 03/27/17) LATEX (Verified Allergy, Unknown, 03/27/17) PINEAPPLE (Verified Allergy, Unknown, 03/27/17) STRAWBERRY (Verified Allergy, Unknown, 03/27/17) Subjective feeling better Objective Last 24 Hour Vital Signs Date Time Temp Pulse Resp B/P Pulse Ox O2 Delivery O2 Flow Rate FiO2 04/27/17 08:36 97.2 65 20 119/70 100 Room Air 04/27/17 04:00 97.7 56 20 116/69 100 Room Air 04/27/17 00:00 97.5 58 20 118/69 100 Room Air 04/26/17 20:00 99.0 58 20 125/76 100 Room Air 04/26/17 16:09 97.5 58 14 113/74 99 Room Air 04/26/17 12:00 97.4 68 20 132/70 98 Room Air 04/26/17 09:24 139/84 Intake and Output 04/26/17 04/27/17 19:00 07:00 Intake Total 1300 ml 860 ml Balance 1300 ml 860 ml Intake Oral 940 ml IV Total 360 ml 860 ml # Voids 2 1 Height (Feet): 5 Height (Inches): 5.00 Weight (Pounds): 184 General Appearance: no apparent distress EENT: normal ENT inspection Neck: supple Cardiovascular: normal rate Respiratory/Chest: lungs clear Abdomen: normal bowel sounds, non tender, soft Extremities: non-tender DESTINY BILL Apr 27, 2017 09:09
[2017-04-27] MEDS ORDERED: Morphine Sulfate 4mg/ml Inj IVP PRN (09:30)
--- NOTE | 2017-04-27 10:02 | Consultation ---
History of Present Illness General Date patient seen: Apr 27, 2017 Chief Complaint: Abdominal Pain Present Illness Allergies: Coded Allergies: ASPIRIN (Verified Allergy, Unknown, 03/27/17) LATEX (Verified Allergy, Unknown, 03/27/17) PINEAPPLE (Verified Allergy, Unknown, 03/27/17) STRAWBERRY (Verified Allergy, Unknown, 03/27/17) Medication History Scheduled Dexlansoprazole (Dexilant), 60 MG ORAL DAILY, (Reported) Docusate Sodium* (Colace*), 100 MG ORAL TWICE A DAY, (Reported) Fluticasone/Vilanterol (Breo Ellipta 100-25 Mcg INH), 1 EACH IH DAILY, (Reported ) Furosemide* (Lasix*), 20 MG ORAL DAILY, (Reported) Losartan Potassium* (Losartan Potassium*), 50 MG ORAL DAILY, (Reported) Losartan Potassium* (Cozaar*), 50 MG ORAL DAILY, (Reported) Morphine HCl (Morphine Sulfate ER), 15 MG ORAL Q8HR, (Reported) Pantoprazole* (Protonix*), 40 MG ORAL DAILY, (Reported) Potassium Chloride (Klor-Con), 20 MEQ ORAL DAILY, (Reported) Triamterene/Hctz (Triamterene-Hctz 37.5-25 mg Cp), 1 CAP ORAL DAILY, (Reported) Triamterene/Hydrochlorothiazid (Maxzide 37.5 Mg-25 Mg Tablet), 1 EACH PO DAILY, (Reported) Scheduled PRN Albuterol Sulfate (Ventolin Hfa), 2 PUFFS INH FOUR TIMES A DAY PRN for Shortness of Breath, (Reported) Hydromorphone Hcl (Dilaudid), 4 MG PO Q6HR PRN for Breakthrough Pain, (Reported) Loperamide HCl (Imodium A-D), 2 MG PO FOUR TIMES A DAY PRN for Diarrhea, ( Reported) Ondansetron Hcl* (Zofran*), 8 MG ORAL Q8HR PRN for Nausea & Vomiting, (Reported) Prochlorperazine Maleate* (Compazine*), 10 MG ORAL Q8HR PRN for Nausea & Vomiting, (Reported) Patient History Healthcare decision maker Resuscitation status Advanced Directive on File No Physical Exam Last 24 Hour Vital Signs Date Time Temp Pulse Resp B/P Pulse Ox O2 Delivery O2 Flow Rate FiO2 04/27/17 09:00 119/70 04/27/17 08:36 97.2 65 20 119/70 100 Room Air 04/27/17 04:00 97.7 56 20 116/69 100 Room Air 04/27/17 00:00 97.5 58 20 118/69 100 Room Air 04/26/17 20:00 99.0 58 20 125/76 100 Room Air 04/26/17 16:09 97.5 58 14 113/74 99 Room Air 04/26/17 12:00 97.4 68 20 132/70 98 Room Air Intake and Output 04/26/17 04/27/17 19:00 07:00 Intake Total 1300 ml 860 ml Balance 1300 ml 860 ml Intake Oral 940 ml IV Total 360 ml 860 ml # Voids 2 1 Height (Feet): 5 Height (Inches): 5.00 Weight (Pounds): 184 Medications Current Medications Medications (Trade) Dose Ordered Sig/Kermit Route PRN Reason Start Time Stop Time Status Last Admin Dose Admin Acetaminophen (Tylenol) 650 mg Q4H PRN ORAL Mild Pain/Temp > 100.5 04/25/17 16:45 05/25/17 16:44 Ciprofloxacin (Cipro 400mg/ 200ml premix bag) 200 ml @ 200 mls/hr Q12HR IV 04/26/17 09:00 05/03/17 08:59 04/27/17 09:39 Dextrose (Dextrose 50%) STAT PRN IV Hypoglycemia 04/25/17 21:15 05/25/17 21:14 Dextrose/Sodium Chloride (D5ns) 1,000 ml @ 80 mls/hr [id number] IV 04/25/17 17:30 05/25/17 17:29 04/27/17 06:15 Docusate Sodium (Colace) 100 mg TIDPRN PRN ORAL Constipation 04/25/17 21:15 05/25/17 21:14 Furosemide (Lasix) 20 mg DAILY ORAL 04/26/17 09:00 05/26/17 08:59 04/27/17 09:39 Heparin Sodium (Porcine) 5000 units 5,000 units EVERY 12 HOURS SUBQ 04/25/17 21:00 05/25/17 20:59 04/26/17 09:30 Insulin Aspart (NovoLOG) BEFORE MEALS AND HS SUBQ 04/26/17 06:30 05/26/17 06:29 Losartan Potassium (Cozaar) 50 mg DAILY ORAL 04/26/17 09:00 05/26/17 08:59 04/26/17 09:24 Metronidazole 100 ml @ 100 mls/hr Q8HR IVPB 04/25/17 22:00 05/02/17 21:59 04/27/17 06:14 Morphine Sulfate (Morphine Sulfate) 3 mg Q4H PRN IVP PAIN 4-10 04/27/17 09:30 05/04/17 09:29 Ondansetron HCl (Zofran) 4 mg Q6H PRN IVP Nausea & Vomiting 04/25/17 21:15 05/25/17 21:14 Pantoprazole (Protonix) 40 mg DAILY ORAL 04/25/17 18:00 05/25/17 17:59 04/27/17 09:39 Potassium Chloride (K-Dur) 20 meq DAILY ORAL 04/26/17 09:00 05/26/17 08:59 04/27/17 09:39 Assessment/Plan Assessment/Plan (1) Ovarian cancer, status post hysterectomy (3) Lumbar DDD (4) Lumbar Spondylosis (5) Lumbar Radiculopathy seen dictated SIERRA OLIVIER Apr 27, 2017 10:02
[2017-04-27] MEDS: Morphine Sulfate 4mg/ml Inj IVP PRN ×2 (11:05→18:26)
[2017-04-27] MEDS: Dyna-Hex 2% Top Sol 8oz TOPIC SCH (11:05)
--- NOTE | 2017-04-27 11:07 | Infectious Diseases Prog Note ---
Assessment/Plan Assessment/Plan A; Sigmoid colitis/diverticulitis Small bowel enteritis DM HPN Obesity P:cont pt on Cipro and Flagyl day # 3 / 5 Subjective ROS Limited/Unobtainable: No Respiratory: Reports: no symptoms Cardiovascular: Reports: no symptoms Gastrointestinal/Abdominal: Reports: diarrhea, other - left side abdominal pain Genitourinary: Reports: no symptoms Neurologic: Reports: no symptoms Allergies: Coded Allergies: ASPIRIN (Verified Allergy, Unknown, 03/27/17) LATEX (Verified Allergy, Unknown, 03/27/17) PINEAPPLE (Verified Allergy, Unknown, 03/27/17) STRAWBERRY (Verified Allergy, Unknown, 03/27/17) Objective Vital Signs Last 24 Hour Vital Signs Date Time Temp Pulse Resp B/P Pulse Ox O2 Delivery O2 Flow Rate FiO2 04/27/17 09:00 119/70 04/27/17 08:36 97.2 65 20 119/70 100 Room Air 04/27/17 04:00 97.7 56 20 116/69 100 Room Air 04/27/17 00:00 97.5 58 20 118/69 100 Room Air 04/26/17 20:00 99.0 58 20 125/76 100 Room Air 04/26/17 16:09 97.5 58 14 113/74 99 Room Air 04/26/17 12:00 97.4 68 20 132/70 98 Room Air Height (Feet): 5 Height (Inches): 5.00 Weight (Pounds): 184 General Appearance: no acute distress HEENT: mucous membranes moist Respiratory/Chest: lungs clear Cardiovascular: normal rate Abdomen: normal bowel sounds Extremities: no edema Neurologic/Psychiatric: alert, oriented x 3, responsive Microbiology Date/Time Source Procedure Growth Status 04/25/17 18:00 Stool Clostridium difficile Toxin Assay - Final Complete Current Medications Medications (Trade) Dose Ordered Sig/Kermit Route PRN Reason Start Time Stop Time Status Last Admin Dose Admin Acetaminophen (Tylenol) 650 mg Q4H PRN ORAL Mild Pain/Temp > 100.5 04/25/17 16:45 05/25/17 16:44 Chlorhexidine Gluconate (Jane-Hex 2%) 1 applic DAILY TOPIC 04/27/17 10:30 05/27/17 10:29 Ciprofloxacin (Cipro 400mg/ 200ml premix bag) 200 ml @ 200 mls/hr Q12HR IV 04/26/17 09:00 05/03/17 08:59 04/27/17 09:39 Dextrose (Dextrose 50%) STAT PRN IV Hypoglycemia 04/25/17 21:15 05/25/17 21:14 Dextrose/Sodium Chloride (D5ns) 1,000 ml @ 80 mls/hr [id number] IV 04/25/17 17:30 05/25/17 17:29 04/27/17 06:15 Docusate Sodium (Colace) 100 mg TIDPRN PRN ORAL Constipation 04/25/17 21:15 05/25/17 21:14 Furosemide (Lasix) 20 mg DAILY ORAL 04/26/17 09:00 05/26/17 08:59 04/27/17 09:39 Heparin Sodium (Porcine) 5000 units 5,000 units EVERY 12 HOURS SUBQ 04/25/17 21:00 05/25/17 20:59 04/26/17 09:30 Insulin Aspart (NovoLOG) BEFORE MEALS AND HS SUBQ 04/26/17 06:30 05/26/17 06:29 Losartan Potassium (Cozaar) 50 mg DAILY ORAL 04/26/17 09:00 05/26/17 08:59 04/26/17 09:24 Metronidazole 100 ml @ 100 mls/hr Q8HR IVPB 04/25/17 22:00 05/02/17 21:59 04/27/17 06:14 Morphine Sulfate (Morphine Sulfate) 4 mg Q4H PRN IVP PAIN 4-10 04/27/17 11:00 05/04/17 10:59 Ondansetron HCl (Zofran) 4 mg Q6H PRN IVP Nausea & Vomiting 04/25/17 21:15 05/25/17 21:14 Pantoprazole (Protonix) 40 mg DAILY ORAL 04/25/17 18:00 05/25/17 17:59 04/27/17 09:39 Potassium Chloride (K-Dur) 20 meq DAILY ORAL 04/26/17 09:00 05/26/17 08:59 04/27/17 09:39 STAR MASON Apr 27, 2017 11:07
[2017-04-27 12:02] VITALS: BP 124/85
--- NOTE | 2017-04-27 13:32 | Consultation ---
DATE OF CONSULTATION: 04/27/2017 PAIN MANAGEMENT CONSULTATION CONSULTING PHYSICIAN: Thomas Olivares M.D. PHYSICIAN LABORATORY AIDE: Shawn Herbert REFERRING PHYSICIAN: Christos Pandya M.D. CHIEF COMPLAINT: Abdominal pain and low back pain. HISTORY OF PRESENT ILLNESS: This is a 57-year-old female, who is being seen on the Med/Surg floor of [facility] for initial comprehensive pain management consultation. The patient reports that she has been having low back pain since June 2016. It is a constant, chronic pain, rating at 10/10, describing as stabbing, numbness, radiating down to the left lower extremity, increasing with movement and nothing has been helping to relieve her pain. The patient also has been having abdominal pain and ovarian cancer, which was diagnosed last year, has gone through hysterectomy and oophorectomy with continued pain. As an outpatient, on a morphine extended release 15 mg every 8 hours around the clock, Dilaudid 4 mg tablets every 4 to 6 hours as needed for pain, 100 tablets was given to the patient as an outpatient. At this time, she is on morphine 2 mg IV every 4 hours as needed for pain with minimal pain relief. We were consulted, so that the patient would have adequate pain control while here in the hospital. At this time, I discussed with the patient about starting her on Neurontin. I did explain to her side effects and action of the medication. The patient will take into consideration at this time. PAST MEDICAL HISTORY: Ovarian cancer, hypertension, diabetes mellitus, and diverticulitis. PAST SURGICAL HISTORY: Gallbladder and hysterectomy. SOCIAL HISTORY: Denies smoking tobacco, drinking alcohol, or drug abuse. ALLERGIES: Aspirin and latex. MEDICATIONS: Dexilant, Colace, Lasix, losartan, Cozaar, morphine extended release, Protonix, Klor-Con, triamterene, Ventolin, Dilaudid, Imodium, Zofran, and Compazine. REVIEW OF SYSTEMS: Denies rash, fever, chills, sweating, dizziness, drowsiness, blurred vision, sore throat, or change in weight. No shortness of breath or chest pain. No nausea, vomiting, diarrhea, or blood in the stool or urine. No bowel or bladder incontinence. No dysuria. She is complaining of abdominal pain and low back pain. PHYSICAL EXAMINATION: GENERAL: Alert, awake, and oriented x3. VITAL SIGNS: Blood pressure 119/70, heart rate is 65, oxygen saturation 100%, respiratory rate is 20, and temperature is 97.2 degrees Fahrenheit. Height is 5 feet 5 inches and weight is 184 pounds. HEENT: PERRLA. NECK: Range of motion is full in all directions. No tenderness to paracervical muscles. No adenopathy. LUNGS: Clear. HEART: S1 and S2 regular. ABDOMEN: Tenderness to palpation. BACK: Range of motion is decreased in flexion and extension with tenderness to paraspinal muscles. No tenderness to trapezius or rhomboid muscles. EXTREMITIES: Upper extremity range of motion is full in all directions. Motor is intact. No cyanosis. No clubbing. No edema. Sensory is intact. Reflexes are unobtainable. There is no adenopathy. Lower extremity range of motion is decreased eversion and inversion. Motor is 4/5 in all muscles bilaterally. No cyanosis. No clubbing. No edema. Sensory is intact. Reflexes are unobtainable. No adenopathy. ASSESSMENT AND PLAN: This is a 57-year-old female with ovarian cancer, status post hysterectomy, lumbar degenerative disk disease, lumbar spondylosis, lumbar radiculopathy. We increased morphine 4 mg IV every four hours as needed for severe pain. Discussed with the patient about the possibility for Neurontin, she was taken into consideration and we will order an MRI of lumbar spine without contrast to rule out any pathology in lower back. The patient was discussed with Dr. Olivares and Dr. Olivares concurred. We will follow the patient. Thank you very much for the courtesy of this consultation. Thomas Olivares M.D. RAGHAVENDRA Herbert DR: BG JOB#: [id number] CC:
--- NOTE | 2017-04-27 14:23 | General Progress Note ---
Assessment/Plan Status: stable Assessment/Plan ASSESSMENT: 1. Acute diverticulitis. 2. Clostridium difficile colitis - history of 3. Acute renal failure. 4. Ovarian cancer, status post hysterectomy and oophorectomy. 5. Hypertension. 6. Gastrointestinal and deep vein thrombosis prophylaxis. 7. Chronic pelvic pain Plan: Current management. Once tolerating PO, february followup as outpatient Subjective ROS Limited/Unobtainable: No Gastrointestinal/Abdominal: Reports: abdominal pain Allergies: Coded Allergies: ASPIRIN (Verified Allergy, Unknown, 03/27/17) LATEX (Verified Allergy, Unknown, 03/27/17) PINEAPPLE (Verified Allergy, Unknown, 03/27/17) STRAWBERRY (Verified Allergy, Unknown, 03/27/17) Objective Last 24 Hour Vital Signs Date Time Temp Pulse Resp B/P Pulse Ox O2 Delivery O2 Flow Rate FiO2 04/27/17 12:02 97.9 66 20 124/85 100 Room Air 04/27/17 11:35 97.9 04/27/17 09:00 119/70 04/27/17 08:36 97.2 65 20 119/70 100 Room Air 04/27/17 04:00 97.7 56 20 116/69 100 Room Air 04/27/17 00:00 97.5 58 20 118/69 100 Room Air 04/26/17 20:00 99.0 58 20 125/76 100 Room Air 04/26/17 16:09 97.5 58 14 113/74 99 Room Air Intake and Output 04/26/17 04/27/17 19:00 07:00 Intake Total 1300 ml 860 ml Balance 1300 ml 860 ml Intake Oral 940 ml IV Total 360 ml 860 ml # Voids 2 1 Height (Feet): 5 Height (Inches): 5.00 Weight (Pounds): 184 General Appearance: no apparent distress EENT: PERRL/EOMI Neck: supple Cardiovascular: normal rate Respiratory/Chest: lungs clear Abdomen: soft Extremities: non-tender 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
[2017-04-27 16:41] VITALS: BP 128/76
[2017-04-27 20:00] VITALS: BP 119/73
[2017-04-28] VITALS: BP 109/71
[2017-04-28] MEDS: Morphine Sulfate 4mg/ml Inj IVP PRN ×4 (00:15→23:17)
[2017-04-28 04:00] VITALS: BP 99/57
[2017-04-28] MEDS: D5NS 1,000 ML IV SCH ×2 (05:01→21:55)
[2017-04-28] MEDS: metroNIDAZOLE 500mg 100 ML IVPB SCH ×3 (05:01→23:17)
[2017-04-28] MEDS: NovoLOG Insulin Flexpen SUBQ SCH ×4 (06:30→21:00)
[2017-04-28 08:00] VITALS: BP 121/69
--- NOTE | 2017-04-28 08:01 | Diagnostic Imaging Report ---
Indication: Abdominal pain Technique: Continuous helical transaxial imaging of the abdomen and pelvis was obtained from the lung bases to the pubic symphysis. No intravenous contrast was administered. Coronal 2-D reformats were also obtained. Total Dose length Product (DLP): [address] Dose Index Volume (CTDIvol): 17 mGy Comparison: none Findings: Lung bases are clear as visualized. Cholecystectomy noted. There is a moderate amount of sigmoid wall thickening noted focally. There are diverticula in this segment as well as elsewhere within the colon. The findings are suspicious for sigmoid diverticulitis. Please correlate clinically. There are multiple small bowel loops in the lower abdomen and pelvis that demonstrate wall thickening. There is no evidence of obstruction. Consider enteritis. There is a very small amount of ascites present. The appendix is probably identified but appears quite short. There is no evidence of acute appendicitis. No evidence of free air demonstrated. Trace calcium noted within the wall the aorta. No hydronephrosis or renal stones are seen. There are some biliary ductal prominence present. Patient has had prior cholecystectomy and this may be a normal finding. Uterus is absent. Impression: Abnormal thickening of the wall the sigmoid colon. Findings are probably inflammatory on the basis of diverticulitis. Please correlate clinically. Follow up recommended. Moderate thickening of multiple loops of small bowel noted within the lower abdomen and pelvis. Consider enteritis. Trace ascites Status post cholecystectomy Some biliary ductal prominence noted. Please correlate clinically. Apparent hysterectomy Short appendix, which is probably normal The CT scanner at [facility] is accredited by the [employer] and the scans are performed using dose optimization techniques as appropriate to a performed exam including Automatic Exposure control.
[2017-04-28 08:27] LABS: BASOPHILS % (AUTO) 0.9 % (0.0-2.0); EOSINOPHILS % (AUTO) 8.5 % (0.0-3.0); LYMPHOCYTES % (AUTO) 46.8 % (20.0-45.0); MEAN CORPUSCULAR HEMOGLOBIN 36.1 PG (27.0-31.0); MEAN CORPUSCULAR HGB CONC 34.6 G/DL (32.0-36.0); MEAN CORPUSCULAR VOLUME 105 FL (80-99); MEAN PLATELET VOLUME 7.8 FL (6.5-10.1); MONOCYTES % (AUTO) 7.9 % (1.0-10.0); NEUTROPHILS % (AUTO) 35.9 % (45.0-75.0); PLATELET COUNT 138 K/UL (150-450); RED BLOOD COUNT 2.94 M/UL (4.20-5.40); RED CELL DISTRIBUTION WIDTH 11.7 % (11.6-14.8); WHITE BLOOD COUNT 3.5 K/UL (4.8-10.8)
[2017-04-28 08:35] LABS: ALANINE AMINOTRANSFERASE 10 U/L (3-33); ALBUMIN/GLOBULIN RATIO 1.5 (1.0-2.7); ANION GAP 11 (5-15); ASPARTATE AMINO TRANSFERASE 12 U/L (5-40); CALCIUM 8.7 mg/dL (8.6-10.2); CARBON DIOXIDE 28 mEQ/L (20-30); CHLORIDE 103 mEQ/L (98-107); CREATININE 0.9 mg/dL (0.5-0.9); GLOMERULAR FILTRATION RATE > 60 mL/min (>60); HEMOLYSIS 5; POTASSIUM 3.2 mEQ/L (3.4-4.9); SODIUM 142 mEQ/L (135-145); TOTAL PROTEIN 5.8 g/dL (6.6-8.7)
--- NOTE | 2017-04-28 08:35 | General Progress Note ---
Assessment/Plan Assessment/Plan (1) Ovarian cancer status post hysterectomy (2) Lumbar degenerative disk disease (3) Lumbar spondylosis (4) Lumbar radiculopathy We continue morphine MRI of lumbar spine without contrast pending results. The patient was discussed with Dr. Olivares and Dr. Olivares concurred Subjective Date patient seen: Apr 28, 2017 Time patient seen: 08:00 - am Allergies: Coded Allergies: ASPIRIN (Verified Allergy, Unknown, 03/27/17) LATEX (Verified Allergy, Unknown, 03/27/17) PINEAPPLE (Verified Allergy, Unknown, 03/27/17) STRAWBERRY (Verified Allergy, Unknown, 03/27/17) Subjective REVIEW OF SYSTEMS: Denies rash, fever, chills, sweating, dizziness, drowsiness, blurred vision, sore throat, or change in weight. No shortness of breath or chest pain. No nausea, vomiting, diarrhea, or blood in the stool or urine. No bowel or bladder incontinence. No dysuria. She is complaining of abdominal pain and low back pain. SUBJECTIVE: Pain has been reduced on the increased Morphine and will be going for MRI. Objective Last 24 Hour Vital Signs Date Time Temp Pulse Resp B/P Pulse Ox O2 Delivery O2 Flow Rate FiO2 04/28/17 04:00 97.7 48 20 99/57 99 Room Air 04/28/17 00:00 97.7 55 20 109/71 99 Room Air 04/27/17 20:00 98.6 70 20 119/73 100 Room Air 04/27/17 18:56 98.2 04/27/17 16:41 98.2 71 18 128/76 99 Room Air 04/27/17 12:02 97.9 66 20 124/85 100 Room Air 04/27/17 09:00 119/70 04/27/17 08:36 97.2 65 20 119/70 100 Room Air Intake and Output 04/27/17 04/28/17 19:00 07:00 Intake Total 1540 ml 940 ml Balance 1540 ml 940 ml Intake Oral 760 ml IV Total 780 ml 940 ml # Voids 1 2 # Bowel Movements 2 Laboratory Tests 04/28/17 07:25: White Blood Count 3.5L, Red Blood Count 2.94L, Hemoglobin 10.6L, Hematocrit 30.7L, Mean Corpuscular Volume 105H, Mean Corpuscular Hemoglobin 36.1H, Mean Corpuscular Hemoglobin Concent 34.6, Red Cell Distribution Width 11.7, Platelet Count 138L, Mean Platelet Volume 7.8, Neutrophils (%) (Auto) 35.9L, Lymphocytes (%) (Auto) 46.8H, Monocytes (%) (Auto) 7.9, Eosinophils (%) (Auto) 8.5H, Basophils (%) (Auto) 0.9, Sodium Level [Pending], Potassium Level [Pending], Chloride Level [Pending], Carbon Dioxide Level [Pending], Blood Urea Nitrogen [ Pending], Creatinine [Pending], Estimat Glomerular Filtration Rate [Pending], Glucose Level [Pending], Calcium Level [Pending], Total Bilirubin [Pending], Aspartate Amino Transf (AST/SGOT) [Pending], Alanine Aminotransferase (ALT/SGPT ) [Pending], Alkaline Phosphatase [Pending], Total Protein [Pending], Albumin [ Pending], Globulin [Pending] Height (Feet): 5 Height (Inches): 5.00 Weight (Pounds): 184 Objective GENERAL: Alert, awake, and oriented x3. HEENT: PERRLA. NECK: Range of motion is full in all directions. No tenderness to paracervical muscles. No adenopathy. LUNGS: Clear. HEART: S1 and S2 regular. ABDOMEN: Tenderness to palpation. BACK: Range of motion is decreased in flexion and extension with tenderness to paraspinal muscles. No tenderness to trapezius or rhomboid muscles. EXTREMITIES: No cyanosis. No clubbing. No edema. NEURO: No changes. SIERRA OLIVIER Apr 28, 2017 08:35
[2017-04-28] MEDS: Heparin 5000 units/ml inj SUBQ SCH ×2 (09:00→21:00)
--- NOTE | 2017-04-28 09:02 | Infectious Diseases Prog Note ---
Assessment/Plan Assessment/Plan ASSESSMENT: The patient is a 57-year-old female with Nausea and vomiting Diarrhea ? viral enteritis vs diverticulitis Clostridium difficile : neg CT : Abnormal thickening of the wall the sigmoid colon. Findings are probably inflammatory on the basis of diverticulitis. Hypertension. History of diverticulitis. History of ovarian cancer, status post chemo (last due 02/2017). History of diabetes. Status post Porth C Cath placement PLAN: cont pt on Cipro and Flagyl day # 4 / Monitor CBC Monitor BMP. Monitor cultures (stool and blood). GI is following Subjective Allergies: Coded Allergies: ASPIRIN (Verified Allergy, Unknown, 03/27/17) LATEX (Verified Allergy, Unknown, 03/27/17) PINEAPPLE (Verified Allergy, Unknown, 03/27/17) STRAWBERRY (Verified Allergy, Unknown, 03/27/17) Subjective afebrile Objective Vital Signs Last 24 Hour Vital Signs Date Time Temp Pulse Resp B/P Pulse Ox O2 Delivery O2 Flow Rate FiO2 04/28/17 04:00 97.7 48 20 99/57 99 Room Air 04/28/17 00:00 97.7 55 20 109/71 99 Room Air 04/27/17 20:00 98.6 70 20 119/73 100 Room Air 04/27/17 18:56 98.2 04/27/17 16:41 98.2 71 18 128/76 99 Room Air 04/27/17 12:02 97.9 66 20 124/85 100 Room Air Height (Feet): 5 Height (Inches): 5.00 Weight (Pounds): 184 HEENT: mucous membranes moist Respiratory/Chest: normal breath sounds Cardiovascular: normal rate Abdomen: no organomegaly Microbiology Date/Time Source Procedure Growth Status 04/25/17 18:00 Stool Clostridium difficile Toxin Assay - Final Complete Laboratory Tests Test 04/28/17 07:25 White Blood Count 3.5 K/UL (4.8-10.8) L Red Blood Count 2.94 M/UL (4.20-5.40) L Hemoglobin 10.6 G/DL (12.0-16.0) L Hematocrit 30.7 % (37.0-47.0) L Mean Corpuscular Volume 105 FL (80-99) H Mean Corpuscular Hemoglobin 36.1 PG (27.0-31.0) H Mean Corpuscular Hemoglobin Concent 34.6 G/DL (32.0-36.0) Red Cell Distribution Width 11.7 % (11.6-14.8) Platelet Count 138 K/UL (150-450) L Mean Platelet Volume 7.8 FL (6.5-10.1) Neutrophils (%) (Auto) 35.9 % (45.0-75.0) L Lymphocytes (%) (Auto) 46.8 % (20.0-45.0) H Monocytes (%) (Auto) 7.9 % (1.0-10.0) Eosinophils (%) (Auto) 8.5 % (0.0-3.0) H Basophils (%) (Auto) 0.9 % (0.0-2.0) Sodium Level 142 mEQ/L (135-145) Potassium Level 3.2 mEQ/L (3.4-4.9) L Chloride Level 103 mEQ/L (98-107) Carbon Dioxide Level 28 mEQ/L (20-30) Anion Gap 11 (5-15) Blood Urea Nitrogen 11 mg/dL (7-23) Creatinine 0.9 mg/dL (0.5-0.9) Estimat Glomerular Filtration Rate > 60 mL/min (>60) Glucose Level 95 mg/dL (74-106) Calcium Level 8.7 mg/dL (8.6-10.2) Total Bilirubin < 0.2 mg/dL (0.0-1.2) Aspartate Amino Transf (AST/SGOT) 12 U/L (5-40) Alanine Aminotransferase (ALT/SGPT) 10 U/L (3-33) Alkaline Phosphatase 36 U/L (35-104) Total Protein 5.8 g/dL (6.6-8.7) L Albumin 3.5 g/dL (3.5-5.2) Globulin 2.3 g/dL Albumin/Globulin Ratio 1.5 (1.0-2.7) Current Medications Medications (Trade) Dose Ordered Sig/Kermit Route PRN Reason Start Time Stop Time Status Last Admin Dose Admin Acetaminophen (Tylenol) 650 mg Q4H PRN ORAL Mild Pain/Temp > 100.5 04/25/17 16:45 05/25/17 16:44 Chlorhexidine Gluconate (Jane-Hex 2%) 1 applic DAILY TOPIC 04/27/17 10:30 05/27/17 10:29 04/27/17 11:05 Ciprofloxacin (Cipro 400mg/ 200ml premix bag) 200 ml @ 200 mls/hr Q12HR IV 04/26/17 09:00 05/03/17 08:59 04/27/17 20:24 Dextrose (Dextrose 50%) STAT PRN IV Hypoglycemia 04/25/17 21:15 05/25/17 21:14 Dextrose/Sodium Chloride (D5ns) 1,000 ml @ 80 mls/hr [id number] IV 04/25/17 17:30 05/25/17 17:29 04/28/17 05:01 Docusate Sodium (Colace) 100 mg TIDPRN PRN ORAL Constipation 04/25/17 21:15 05/25/17 21:14 Furosemide (Lasix) 20 mg DAILY ORAL 04/26/17 09:00 05/26/17 08:59 04/27/17 09:39 Heparin Sodium (Porcine) 5000 units 5,000 units EVERY 12 HOURS SUBQ 04/25/17 21:00 05/25/17 20:59 04/27/17 20:26 Insulin Aspart (NovoLOG) BEFORE MEALS AND HS SUBQ 04/26/17 06:30 05/26/17 06:29 Losartan Potassium (Cozaar) 50 mg DAILY ORAL 04/26/17 09:00 05/26/17 08:59 04/26/17 09:24 Metronidazole 100 ml @ 100 mls/hr Q8HR IVPB 04/25/17 22:00 05/02/17 21:59 04/28/17 05:01 Morphine Sulfate (Morphine Sulfate) 4 mg Q4H PRN IVP PAIN 4-10 04/27/17 11:00 05/04/17 10:59 04/28/17 00:15 Ondansetron HCl (Zofran) 4 mg Q6H PRN IVP Nausea & Vomiting 04/25/17 21:15 05/25/17 21:14 Pantoprazole (Protonix) 40 mg DAILY ORAL 04/25/17 18:00 05/25/17 17:59 04/27/17 09:39 Potassium Chloride (K-Dur) 20 meq DAILY ORAL 04/26/17 09:00 05/26/17 08:59 04/27/17 09:39 TAMEKA LITTLEJOHN M.D. Apr 28, 2017 09:01
[2017-04-28] MEDS: Dyna-Hex 2% Top Sol 8oz TOPIC SCH (11:04)
[2017-04-28] MEDS: Losartan 50mg tab ORAL SCH (11:04)
[2017-04-28 12:00] VITALS: BP 118/67
--- NOTE | 2017-04-28 12:17 | GI Progress Note ---
Assessment/Plan Problems: (1) Vomiting ICD Codes: R11.10 - Vomiting, unspecified SNOMED: 190354701 Qualifiers: Qualified Codes: R11.2 - Nausea with vomiting, unspecified (2) Abdominal pain ICD Codes: R10.9 - Unspecified abdominal pain SNOMED: 04311668 Qualifiers: Qualified Codes: R10.32 - Left lower quadrant pain (3) Diverticulitis ICD Codes: K57.92 - Diverticulitis of intestine, part unspecified, without perforation or abscess without bleeding SNOMED: 436193607 Qualifiers: Qualified Codes: K57.32 - Diverticulitis of large intestine without perforation or abscess without bleeding (4) Sepsis ICD Codes: A41.9 - Sepsis, unspecified organism SNOMED: 39115016 Status: stable Status Narrative Discussed with Dr. Chavez. Assessment/Plan CT AP >> sigmoid diverticulitis cdiff negative last colonoscopy in 2010 per patient adv to low fiber diet abx IV >> transition to PO when dc IVF + electrolyte replacement pain mgmt patient will require colonoscopy x 2 months after discharge fu stool cx fu labs Subjective Subjective abdominal pain Objective Last 24 Hour Vital Signs Date Time Temp Pulse Resp B/P Pulse Ox O2 Delivery O2 Flow Rate FiO2 04/28/17 11:04 121/69 04/28/17 08:00 97.9 55 18 121/69 95 Room Air 04/28/17 04:00 97.7 48 20 99/57 99 Room Air 04/28/17 00:00 97.7 55 20 109/71 99 Room Air 04/27/17 20:00 98.6 70 20 119/73 100 Room Air 04/27/17 18:56 98.2 04/27/17 16:41 98.2 71 18 128/76 99 Room Air Intake and Output 04/27/17 04/28/17 19:00 07:00 Intake Total 1540 ml 940 ml Balance 1540 ml 940 ml Intake Oral 760 ml IV Total 780 ml 940 ml # Voids 1 2 # Bowel Movements 2 Laboratory Tests Test 04/28/17 07:25 White Blood Count 3.5 K/UL (4.8-10.8) L Red Blood Count 2.94 M/UL (4.20-5.40) L Hemoglobin 10.6 G/DL (12.0-16.0) L Hematocrit 30.7 % (37.0-47.0) L Mean Corpuscular Volume 105 FL (80-99) H Mean Corpuscular Hemoglobin 36.1 PG (27.0-31.0) H Mean Corpuscular Hemoglobin Concent 34.6 G/DL (32.0-36.0) Red Cell Distribution Width 11.7 % (11.6-14.8) Platelet Count 138 K/UL (150-450) L Mean Platelet Volume 7.8 FL (6.5-10.1) Neutrophils (%) (Auto) 35.9 % (45.0-75.0) L Lymphocytes (%) (Auto) 46.8 % (20.0-45.0) H Monocytes (%) (Auto) 7.9 % (1.0-10.0) Eosinophils (%) (Auto) 8.5 % (0.0-3.0) H Basophils (%) (Auto) 0.9 % (0.0-2.0) Sodium Level 142 mEQ/L (135-145) Potassium Level 3.2 mEQ/L (3.4-4.9) L Chloride Level 103 mEQ/L (98-107) Carbon Dioxide Level 28 mEQ/L (20-30) Anion Gap 11 (5-15) Blood Urea Nitrogen 11 mg/dL (7-23) Creatinine 0.9 mg/dL (0.5-0.9) Estimat Glomerular Filtration Rate > 60 mL/min (>60) Glucose Level 95 mg/dL (74-106) Calcium Level 8.7 mg/dL (8.6-10.2) Total Bilirubin < 0.2 mg/dL (0.0-1.2) Aspartate Amino Transf (AST/SGOT) 12 U/L (5-40) Alanine Aminotransferase (ALT/SGPT) 10 U/L (3-33) Alkaline Phosphatase 36 U/L (35-104) Total Protein 5.8 g/dL (6.6-8.7) L Albumin 3.5 g/dL (3.5-5.2) Globulin 2.3 g/dL Albumin/Globulin Ratio 1.5 (1.0-2.7) Height (Feet): 5 Height (Inches): 5.00 Weight (Pounds): 184 General Appearance: no apparent distress, alert Cardiovascular: normal rate Respiratory/Chest: normal breath sounds, no respiratory distress Abdominal Exam: normal bowel sounds, non tender, soft, tender Emily Braxton N.P. Apr 28, 2017 12:17
--- NOTE | 2017-04-28 12:27 | Diagnostic Imaging Report ---
Indication: 57-year-old female inpatient with history of lumbar degenerative disease, spondylosis, and radiculopathy Technique: Sagittal T1 and T2 fast spin echo, sagittal STIR, axial T1 and T2 fast spin-echo images of the lumbar spine Comparison: None Findings: Bony alignment is normal. Vertebral body heights are preserved. Disc spaces are preserved. Vertebral body marrow signal is normal. Conus medullaris terminates at the L1-2 level. At L3-4, there is circumferential annular bulge, which results in borderline spinal canal stenosis, narrowing it to just under 10 mm diameter. No evidence of significant neural impingement as a result. May be minimal compromise of the bilateral neural foramina by the bulging disc. At L4-5, there is generalized circumferential annular bulge. This does not result in any significant spinal canal stenosis. The bulging disc results in minimal compromise of the right neural foramen. The bulging disc also results in minimal compromise of the left neural foramen. There is also a focal disc extrusion on the right, extruded disc fragment measuring 4 mm AP by 9 mm transverse by 11 mm craniocaudad. It extends caudad to the disc itself. This may result in slight impingement upon the right lateral recess. At L5-S1, there is mild circumferential annular bulge, which does not result in significant spinal canal stenosis or neural foraminal compromise. The included extraspinal soft tissues are unremarkable. Impression: Focal disc extrusion on the right at L4-5, as described. This may result in some compromise of the right lateral recess and therefore of the right L5 nerve root. Correlate with clinical findings as regards clinical significance of this. Borderline spinal stenosis at L3-4, due to circumferential annular bulge. Doubt significant neural compromise at this level Other degenerative changes at L4-5 and L5-S1, as detailed above
--- NOTE | 2017-04-28 13:42 | General Progress Note ---
Assessment/Plan Status: stable Assessment/Plan ASSESSMENT: 1. Acute diverticulitis. 2. Clostridium difficile colitis - history of 3. Acute renal failure. 4. Ovarian cancer, status post hysterectomy and oophorectomy. 5. Hypertension. 6. Gastrointestinal and deep vein thrombosis prophylaxis. 7. Chronic pelvic pain 8. Hematuria 9. Lumbar Spondylosis Plan: Current management. Once tolerating PO, may followup as outpatient Advised to followup about Hematuria with PCP, as out patient. She is aware and in agreement Pending GI Clearance Subjective ROS Limited/Unobtainable: No Constitutional: Reports: no symptoms HEENT: Reports: no symptoms Cardiovascular: Reports: no symptoms Allergies: Coded Allergies: ASPIRIN (Verified Allergy, Unknown, 03/27/17) LATEX (Verified Allergy, Unknown, 03/27/17) PINEAPPLE (Verified Allergy, Unknown, 03/27/17) STRAWBERRY (Verified Allergy, Unknown, 03/27/17) Objective Last 24 Hour Vital Signs Date Time Temp Pulse Resp B/P Pulse Ox O2 Delivery O2 Flow Rate FiO2 04/28/17 12:00 97.0 76 20 118/67 99 Room Air 04/28/17 11:04 121/69 04/28/17 08:00 97.9 55 18 121/69 95 Room Air 04/28/17 04:00 97.7 48 20 99/57 99 Room Air 04/28/17 00:00 97.7 55 20 109/71 99 Room Air 04/27/17 20:00 98.6 70 20 119/73 100 Room Air 04/27/17 18:56 98.2 04/27/17 16:41 98.2 71 18 128/76 99 Room Air Intake and Output 04/27/17 04/28/17 19:00 07:00 Intake Total 1540 ml 940 ml Balance 1540 ml 940 ml Intake Oral 760 ml IV Total 780 ml 940 ml # Voids 1 2 # Bowel Movements 2 Laboratory Tests 04/28/17 07:25: White Blood Count 3.5L, Red Blood Count 2.94L, Hemoglobin 10.6L, Hematocrit 30.7L, Mean Corpuscular Volume 105H, Mean Corpuscular Hemoglobin 36.1H, Mean Corpuscular Hemoglobin Concent 34.6, Red Cell Distribution Width 11.7, Platelet Count 138L, Mean Platelet Volume 7.8, Neutrophils (%) (Auto) 35.9L, Lymphocytes (%) (Auto) 46.8H, Monocytes (%) (Auto) 7.9, Eosinophils (%) (Auto) 8.5H, Basophils (%) (Auto) 0.9, Sodium Level 142, Potassium Level 3.2L, Chloride Level 103, Carbon Dioxide Level 28, Anion Gap 11, Blood Urea Nitrogen 11, Creatinine 0.9, Estimat Glomerular Filtration Rate > 60, Glucose Level 95, Calcium Level 8.7, Total Bilirubin < 0.2, Aspartate Amino Transf (AST/SGOT) 12, Alanine Aminotransferase (ALT/SGPT) 10, Alkaline Phosphatase 36, Total Protein 5.8L, Albumin 3.5, Globulin 2.3, Albumin/Globulin Ratio 1.5 Height (Feet): 5 Height (Inches): 5.00 Weight (Pounds): 184 General Appearance: no apparent distress EENT: PERRL/EOMI Neck: supple Cardiovascular: normal rate Respiratory/Chest: lungs clear Abdomen: soft Extremities: non-tender Neurologic: psych social worker II-XII grossly normal Christos Pandya MD Apr 28, 2017 13:42
[2017-04-28 16:12] VITALS: BP 113/70
[2017-04-28 20:00] VITALS: BP 134/76
[2017-04-29] VITALS: BP 119/80
[2017-04-29 04:00] VITALS: BP 125/75
[2017-04-29] MEDS: metroNIDAZOLE 500mg 100 ML IVPB SCH ×2 (06:03→14:00)
[2017-04-29] MEDS: NovoLOG Insulin Flexpen SUBQ SCH ×2 (06:09→11:30)
[2017-04-29 07:29] LABS: EOSINOPHILS % (AUTO) 5.9 % (0.0-3.0); LYMPHOCYTES % (AUTO) 45.2 % (20.0-45.0); MEAN CORPUSCULAR HEMOGLOBIN 34.2 PG (27.0-31.0); MEAN CORPUSCULAR HGB CONC 33.2 G/DL (32.0-36.0); MEAN CORPUSCULAR VOLUME 103 FL (80-99); MEAN PLATELET VOLUME 7.6 FL (6.5-10.1); MONOCYTES % (AUTO) 7.4 % (1.0-10.0); NEUTROPHILS % (AUTO) 40.4 % (45.0-75.0); PLATELET COUNT 146 K/UL (150-450); RED BLOOD COUNT 3.07 M/UL (4.20-5.40); RED CELL DISTRIBUTION WIDTH 11.4 % (11.6-14.8); WHITE BLOOD COUNT 3.5 K/UL (4.8-10.8)
[2017-04-29 07:33] LABS: ALANINE AMINOTRANSFERASE 13 U/L (3-33); ALBUMIN/GLOBULIN RATIO 1.2 (1.0-2.7); ANION GAP 8 (5-15); ASPARTATE AMINO TRANSFERASE 15 U/L (5-40); CALCIUM 8.8 mg/dL (8.6-10.2); CARBON DIOXIDE 29 mEQ/L (20-30); CHLORIDE 106 mEQ/L (98-107); CREATININE 0.9 mg/dL (0.5-0.9); GLOMERULAR FILTRATION RATE > 60 mL/min (>60); HEMOLYSIS 3; POTASSIUM 3.8 mEQ/L (3.4-4.9); SODIUM 143 mEQ/L (135-145); TOTAL PROTEIN 5.9 g/dL (6.6-8.7)
[2017-04-29 08:00] VITALS: BP 139/74
--- NOTE | 2017-04-29 08:54 | General Progress Note ---
Assessment/Plan Assessment/Plan (1) Ovarian cancer status post hysterectomy (2) Lumbar degenerative disk disease (3) Lumbar spondylosis (4) Lumbar radiculopathy We continue morphine. We recommend patient to be seen by Neurosurgeon. The patient was discussed with Dr. Olivares and Dr. Olivares concurred Subjective Date patient seen: Apr 29, 2017 Time patient seen: 08:15 - am Allergies: Coded Allergies: ASPIRIN (Verified Allergy, Unknown, 03/27/17) LATEX (Verified Allergy, Unknown, 03/27/17) PINEAPPLE (Verified Allergy, Unknown, 03/27/17) STRAWBERRY (Verified Allergy, Unknown, 03/27/17) Subjective REVIEW OF SYSTEMS: Denies rash, fever, chills, sweating, dizziness, drowsiness, blurred vision, sore throat, or change in weight. No shortness of breath or chest pain. No nausea, vomiting, diarrhea, or blood in the stool or urine. No bowel or bladder incontinence. No dysuria. She is complaining of abdominal pain and low back pain. SUBJECTIVE: She reports that the pain has been stable on the Morphine. I reviewed the MRI with the patient and advised her to consult with a Neurosurgeon, she understands and agrees. Objective Last 24 Hour Vital Signs Date Time Temp Pulse Resp B/P Pulse Ox O2 Delivery O2 Flow Rate FiO2 04/29/17 04:00 96.8 50 18 125/75 98 Room Air 04/29/17 00:00 97.9 101 20 119/80 92 Room Air 04/28/17 20:00 97.7 64 20 134/76 98 Room Air 04/28/17 18:09 97.9 04/28/17 16:12 97.9 53 19 113/70 96 Room Air 04/28/17 12:00 97.0 76 20 118/67 99 Room Air 04/28/17 11:04 121/69 Intake and Output 04/28/17 04/29/17 19:00 07:00 Intake Total 240 ml 780 ml Balance 240 ml 780 ml Intake Oral 240 ml IV Total 780 ml # Voids 1 2 Laboratory Tests 04/29/17 06:15: Sodium Level 143, Potassium Level 3.8, Chloride Level 106, Carbon Dioxide Level 29, Anion Gap 8, Blood Urea Nitrogen 9, Creatinine 0.9, Estimat Glomerular Filtration Rate > 60, Glucose Level 95, Calcium Level 8.8, Total Bilirubin < 0.2 , Aspartate Amino Transf (AST/SGOT) 15, Alanine Aminotransferase (ALT/SGPT) 13, Alkaline Phosphatase 40, Total Protein 5.9L, Albumin 3.3L, Globulin 2.6, Albumin /Globulin Ratio 1.2 04/29/17 07:00: White Blood Count 3.5L, Red Blood Count 3.07L, Hemoglobin 10.5L, Hematocrit 31.6L, Mean Corpuscular Volume 103H, Mean Corpuscular Hemoglobin 34.2H, Mean Corpuscular Hemoglobin Concent 33.2, Red Cell Distribution Width 11.4L, Platelet Count 146L, Mean Platelet Volume 7.6, Neutrophils (%) (Auto) 40.4L, Lymphocytes (%) (Auto) 45.2H, Monocytes (%) (Auto) 7.4, Eosinophils (%) (Auto) 5.9H, Basophils (%) (Auto) 1.0 Height (Feet): 5 Height (Inches): 5.00 Weight (Pounds): 184 Objective GENERAL: Alert, awake, and oriented x3. HEENT: PERRLA. NECK: Range of motion is full in all directions. No tenderness to paracervical muscles. No adenopathy. LUNGS: Clear. HEART: S1 and S2 regular. ABDOMEN: Tenderness to palpation. BACK: Range of motion is decreased in flexion and extension with tenderness to paraspinal muscles. No tenderness to trapezius or rhomboid muscles. EXTREMITIES: No cyanosis. No clubbing. No edema. NEURO: No changes. MRI L Spine no Contrast Findings: Bony alignment is normal. Vertebral body heights are preserved. Disc spaces are preserved. Vertebral body marrow signal is normal. Conus medullaris terminates at the L1-2 level. At L3-4, there is circumferential annular bulge, which results in borderline spinal canal stenosis, narrowing it to just under 10 mm diameter. No evidence of significant neural impingement as a result. May be minimal compromise of the bilateral neural foramina by the bulging disc. At L4-5, there is generalized circumferential annular bulge. This does not result in any significant spinal canal stenosis. The bulging disc results in minimal compromise of the right neural foramen. The bulging disc also results in minimal compromise of the left neural foramen. There is also a focal disc extrusion on the right, extruded disc fragment measuring 4 mm AP by 9 mm transverse by 11 mm craniocaudad. It extends caudad to the disc itself. This may result in slight impingement upon the right lateral recess. At L5-S1, there is mild circumferential annular bulge, which does not result in significant spinal canal stenosis or neural foraminal compromise. The included extraspinal soft tissues are unremarkable. Impression: Focal disc extrusion on the right at L4-5, as described. This may result in some compromise of the right lateral recess and therefore of the right L5 nerve root. Correlate with clinical findings as regards clinical significance of this. Borderline spinal stenosis at L3-4, due to circumferential annular bulge. Doubt significant neural compromise at this level Other degenerative changes at L4-5 and L5-S1, as detailed above SIERRA OLIVIER Apr 29, 2017 08:54
[2017-04-29] MEDS: Heparin 5000 units/ml inj SUBQ SCH (09:00)
[2017-04-29] MEDS: D5NS 1,000 ML IV SCH (09:26)
[2017-04-29] MEDS: Losartan 50mg tab ORAL SCH (09:26)
[2017-04-29] MEDS: Dyna-Hex 2% Top Sol 8oz TOPIC SCH (09:27)
[2017-04-29] MEDS: Morphine Sulfate 4mg/ml Inj IVP PRN (09:30)
[2017-04-29 12:00] VITALS: BP 133/82
--- NOTE | 2017-04-29 12:17 | Infectious Diseases Prog Note ---
Assessment/Plan Assessment/Plan A; Sigmoid colitis/diverticulitis Small bowel enteritis DM HPN Obesity P: agree with discharge on Cipro and Flagyl X 5 days Subjective ROS Limited/Unobtainable: No Constitutional: Reports: no symptoms Respiratory: Reports: no symptoms Cardiovascular: Reports: no symptoms Gastrointestinal/Abdominal: Reports: other - pain 02/12 Neurologic: Reports: no symptoms Allergies: Coded Allergies: ASPIRIN (Verified Allergy, Unknown, 03/27/17) LATEX (Verified Allergy, Unknown, 03/27/17) PINEAPPLE (Verified Allergy, Unknown, 03/27/17) STRAWBERRY (Verified Allergy, Unknown, 03/27/17) Objective Vital Signs Last 24 Hour Vital Signs Date Time Temp Pulse Resp B/P Pulse Ox O2 Delivery O2 Flow Rate FiO2 04/29/17 09:26 139/74 04/29/17 08:00 97.9 63 20 139/74 97 Room Air 04/29/17 04:00 96.8 50 18 125/75 98 Room Air 04/29/17 00:00 97.9 101 20 119/80 92 Room Air 04/28/17 20:00 97.7 64 20 134/76 98 Room Air 04/28/17 18:09 97.9 04/28/17 16:12 97.9 53 19 113/70 96 Room Air Height (Feet): 5 Height (Inches): 5.00 Weight (Pounds): 184 General Appearance: no acute distress HEENT: mucous membranes moist Respiratory/Chest: normal breath sounds Cardiovascular: normal rate Abdomen: soft, non tender Extremities: no edema Neurologic/Psychiatric: alert, oriented x 3, responsive Laboratory Tests Test 04/29/17 06:15 04/29/17 07:00 Sodium Level 143 mEQ/L (135-145) Potassium Level 3.8 mEQ/L (3.4-4.9) Chloride Level 106 mEQ/L (98-107) Carbon Dioxide Level 29 mEQ/L (20-30) Anion Gap 8 (5-15) Blood Urea Nitrogen 9 mg/dL (7-23) Creatinine 0.9 mg/dL (0.5-0.9) Estimat Glomerular Filtration Rate > 60 mL/min (>60) Glucose Level 95 mg/dL (74-106) Calcium Level 8.8 mg/dL (8.6-10.2) Total Bilirubin < 0.2 mg/dL (0.0-1.2) Aspartate Amino Transf (AST/SGOT) 15 U/L (5-40) Alanine Aminotransferase (ALT/SGPT) 13 U/L (3-33) Alkaline Phosphatase 40 U/L (35-104) Total Protein 5.9 g/dL (6.6-8.7) L Albumin 3.3 g/dL (3.5-5.2) L Globulin 2.6 g/dL Albumin/Globulin Ratio 1.2 (1.0-2.7) White Blood Count 3.5 K/UL (4.8-10.8) L Red Blood Count 3.07 M/UL (4.20-5.40) L Hemoglobin 10.5 G/DL (12.0-16.0) L Hematocrit 31.6 % (37.0-47.0) L Mean Corpuscular Volume 103 FL (80-99) H Mean Corpuscular Hemoglobin 34.2 PG (27.0-31.0) H Mean Corpuscular Hemoglobin Concent 33.2 G/DL (32.0-36.0) Red Cell Distribution Width 11.4 % (11.6-14.8) L Platelet Count 146 K/UL (150-450) L Mean Platelet Volume 7.6 FL (6.5-10.1) Neutrophils (%) (Auto) 40.4 % (45.0-75.0) L Lymphocytes (%) (Auto) 45.2 % (20.0-45.0) H Monocytes (%) (Auto) 7.4 % (1.0-10.0) Eosinophils (%) (Auto) 5.9 % (0.0-3.0) H Basophils (%) (Auto) 1.0 % (0.0-2.0) Current Medications Medications (Trade) Dose Ordered Sig/Kermit Route PRN Reason Start Time Stop Time Status Last Admin Dose Admin Acetaminophen (Tylenol) 650 mg Q4H PRN ORAL Mild Pain/Temp > 100.5 04/25/17 16:45 05/25/17 16:44 Chlorhexidine Gluconate (Jane-Hex 2%) 1 applic DAILY TOPIC 04/27/17 10:30 05/27/17 10:29 04/29/17 09:27 Ciprofloxacin (Cipro 400mg/ 200ml premix bag) 200 ml @ 200 mls/hr Q12HR IV 04/26/17 09:00 05/03/17 08:59 04/29/17 09:25 Dextrose (Dextrose 50%) STAT PRN IV Hypoglycemia 04/25/17 21:15 05/25/17 21:14 Dextrose/Sodium Chloride (D5ns) 1,000 ml @ 80 mls/hr [id number] IV 04/25/17 17:30 05/25/17 17:29 04/29/17 09:26 Docusate Sodium (Colace) 100 mg TIDPRN PRN ORAL Constipation 04/25/17 21:15 05/25/17 21:14 Furosemide (Lasix) 20 mg DAILY ORAL 04/26/17 09:00 05/26/17 08:59 04/29/17 09:26 Heparin Sodium (Porcine) 5000 units 5,000 units EVERY 12 HOURS SUBQ 04/25/17 21:00 05/25/17 20:59 04/27/17 20:26 Insulin Aspart (NovoLOG) BEFORE MEALS AND HS SUBQ 04/26/17 06:30 05/26/17 06:29 Losartan Potassium (Cozaar) 50 mg DAILY ORAL 04/26/17 09:00 05/26/17 08:59 04/29/17 09:26 Metronidazole 100 ml @ 100 mls/hr Q8HR IVPB 04/25/17 22:00 05/02/17 21:59 04/29/17 06:03 Morphine Sulfate (Morphine Sulfate) 4 mg Q4H PRN IVP PAIN 4-10 04/27/17 11:00 05/04/17 10:59 04/29/17 09:30 Ondansetron HCl (Zofran) 4 mg Q6H PRN IVP Nausea & Vomiting 04/25/17 21:15 05/25/17 21:14 04/28/17 11:05 Pantoprazole (Protonix) 40 mg DAILY ORAL 04/25/17 18:00 05/25/17 17:59 04/29/17 09:26 Potassium Chloride (K-Dur) 20 meq DAILY ORAL 04/26/17 09:00 05/26/17 08:59 04/29/17 09:29 STAR MASON Apr 29, 2017 12:17
[2017-04-29] MEDS ORDERED: Heplock Flush 100 units/ml 3 ml syr INJ ONE (12:45)
[2017-04-29] MEDS ORDERED: CIPRO500 MG PO ×4 (14:43→15:06)
[2017-04-29] MEDS ORDERED: FLAGYL500 MG ORAL (14:47)
--- NOTE | 2017-04-29 14:48 | General Progress Note ---
Assessment/Plan Status: stable Assessment/Plan ASSESSMENT: 1. Acute diverticulitis. 2. Clostridium difficile colitis - history of 3. Acute renal failure. 4. Ovarian cancer, status post hysterectomy and oophorectomy. 5. Hypertension. 6. Gastrointestinal and deep vein thrombosis prophylaxis. 7. Chronic pelvic pain 8. Hematuria 9. Lumbar Spondylosis Plan: Current management. Once tolerating PO, may followup as outpatient Advised to followup about Hematuria with PCP, as out patient. She is aware and in agreement ok to followup as outpatient Subjective ROS Limited/Unobtainable: No Constitutional: Reports: no symptoms HEENT: Reports: no symptoms Cardiovascular: Reports: no symptoms Respiratory: Reports: no symptoms Allergies: Coded Allergies: ASPIRIN (Verified Allergy, Unknown, 03/27/17) LATEX (Verified Allergy, Unknown, 03/27/17) PINEAPPLE (Verified Allergy, Unknown, 03/27/17) STRAWBERRY (Verified Allergy, Unknown, 03/27/17) Objective Last 24 Hour Vital Signs Date Time Temp Pulse Resp B/P Pulse Ox O2 Delivery O2 Flow Rate FiO2 04/29/17 12:00 98.1 67 20 133/82 99 Room Air 04/29/17 09:26 139/74 04/29/17 08:00 97.9 63 20 139/74 97 Room Air 04/29/17 04:00 96.8 50 18 125/75 98 Room Air 04/29/17 00:00 97.9 101 20 119/80 92 Room Air 04/28/17 20:00 97.7 64 20 134/76 98 Room Air 04/28/17 18:09 97.9 04/28/17 16:12 97.9 53 19 113/70 96 Room Air Intake and Output 04/28/17 04/29/17 19:00 07:00 Intake Total 240 ml 780 ml Balance 240 ml 780 ml Intake Oral 240 ml IV Total 780 ml # Voids 1 2 Laboratory Tests 04/29/17 06:15: Sodium Level 143, Potassium Level 3.8, Chloride Level 106, Carbon Dioxide Level 29, Anion Gap 8, Blood Urea Nitrogen 9, Creatinine 0.9, Estimat Glomerular Filtration Rate > 60, Glucose Level 95, Calcium Level 8.8, Total Bilirubin < 0.2 , Aspartate Amino Transf (AST/SGOT) 15, Alanine Aminotransferase (ALT/SGPT) 13, Alkaline Phosphatase 40, Total Protein 5.9L, Albumin 3.3L, Globulin 2.6, Albumin /Globulin Ratio 1.2 04/29/17 07:00: White Blood Count 3.5L, Red Blood Count 3.07L, Hemoglobin 10.5L, Hematocrit 31.6L, Mean Corpuscular Volume 103H, Mean Corpuscular Hemoglobin 34.2H, Mean Corpuscular Hemoglobin Concent 33.2, Red Cell Distribution Width 11.4L, Platelet Count 146L, Mean Platelet Volume 7.6, Neutrophils (%) (Auto) 40.4L, Lymphocytes (%) (Auto) 45.2H, Monocytes (%) (Auto) 7.4, Eosinophils (%) (Auto) 5.9H, Basophils (%) (Auto) 1.0 Height (Feet): 5 Height (Inches): 5.00 Weight (Pounds): 184 General Appearance: no apparent distress EENT: PERRL/EOMI Neck: supple Cardiovascular: normal rate Respiratory/Chest: lungs clear Abdomen: soft Extremities: non-tender 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
--- NOTE | 2017-04-29 15:40 | GI Progress Note ---
Assessment/Plan Problems: (1) Vomiting ICD Codes: R11.10 - Vomiting, unspecified SNOMED: 363082652 Qualifiers: Qualified Codes: R11.2 - Nausea with vomiting, unspecified (2) Abdominal pain ICD Codes: R10.9 - Unspecified abdominal pain SNOMED: 41419049 Qualifiers: Qualified Codes: R10.32 - Left lower quadrant pain (3) Diverticulitis ICD Codes: K57.92 - Diverticulitis of intestine, part unspecified, without perforation or abscess without bleeding SNOMED: 322581044 Qualifiers: Qualified Codes: K57.32 - Diverticulitis of large intestine without perforation or abscess without bleeding (4) Sepsis ICD Codes: A41.9 - Sepsis, unspecified organism SNOMED: 70654487 Status: stable Status Narrative Discussed with Dr. Chavez. Assessment/Plan CT AP >> sigmoid diverticulitis cdiff negative last colonoscopy in 2010 per patient low fiber diet abx IV >> transition to PO when dc IVF + electrolyte replacement pain mgmt patient will require colonoscopy x 2 months after discharge fu stool cx fu labs Subjective Subjective abdominal pain Objective Last 24 Hour Vital Signs Date Time Temp Pulse Resp B/P Pulse Ox O2 Delivery O2 Flow Rate FiO2 04/29/17 12:00 98.1 67 20 133/82 99 Room Air 04/29/17 09:26 139/74 04/29/17 08:00 97.9 63 20 139/74 97 Room Air 04/29/17 04:00 96.8 50 18 125/75 98 Room Air 04/29/17 00:00 97.9 101 20 119/80 92 Room Air 04/28/17 20:00 97.7 64 20 134/76 98 Room Air 04/28/17 18:09 97.9 04/28/17 16:12 97.9 53 19 113/70 96 Room Air Intake and Output 04/28/17 04/29/17 19:00 07:00 Intake Total 240 ml 780 ml Balance 240 ml 780 ml Intake Oral 240 ml IV Total 780 ml # Voids 1 2 Laboratory Tests Test 04/29/17 06:15 04/29/17 07:00 Sodium Level 143 mEQ/L (135-145) Potassium Level 3.8 mEQ/L (3.4-4.9) Chloride Level 106 mEQ/L (98-107) Carbon Dioxide Level 29 mEQ/L (20-30) Anion Gap 8 (5-15) Blood Urea Nitrogen 9 mg/dL (7-23) Creatinine 0.9 mg/dL (0.5-0.9) Estimat Glomerular Filtration Rate > 60 mL/min (>60) Glucose Level 95 mg/dL (74-106) Calcium Level 8.8 mg/dL (8.6-10.2) Total Bilirubin < 0.2 mg/dL (0.0-1.2) Aspartate Amino Transf (AST/SGOT) 15 U/L (5-40) Alanine Aminotransferase (ALT/SGPT) 13 U/L (3-33) Alkaline Phosphatase 40 U/L (35-104) Total Protein 5.9 g/dL (6.6-8.7) L Albumin 3.3 g/dL (3.5-5.2) L Globulin 2.6 g/dL Albumin/Globulin Ratio 1.2 (1.0-2.7) White Blood Count 3.5 K/UL (4.8-10.8) L Red Blood Count 3.07 M/UL (4.20-5.40) L Hemoglobin 10.5 G/DL (12.0-16.0) L Hematocrit 31.6 % (37.0-47.0) L Mean Corpuscular Volume 103 FL (80-99) H Mean Corpuscular Hemoglobin 34.2 PG (27.0-31.0) H Mean Corpuscular Hemoglobin Concent 33.2 G/DL (32.0-36.0) Red Cell Distribution Width 11.4 % (11.6-14.8) L Platelet Count 146 K/UL (150-450) L Mean Platelet Volume 7.6 FL (6.5-10.1) Neutrophils (%) (Auto) 40.4 % (45.0-75.0) L Lymphocytes (%) (Auto) 45.2 % (20.0-45.0) H Monocytes (%) (Auto) 7.4 % (1.0-10.0) Eosinophils (%) (Auto) 5.9 % (0.0-3.0) H Basophils (%) (Auto) 1.0 % (0.0-2.0) Height (Feet): 5 Height (Inches): 5.00 Weight (Pounds): 184 General Appearance: no apparent distress, alert, overweight Cardiovascular: normal rate Respiratory/Chest: normal breath sounds, no respiratory distress Abdominal Exam: normal bowel sounds, non tender, soft Extremities: normal range of motion Emily Braxton N.P. Apr 29, 2017 15:40
[2017-04-29 16:00] VITALS: BP 137/76
[2017-04-29] MEDS ORDERED: D5NS 1000ml IV ONE (16:34)
--- NOTE | 2017-05-01 11:13 | Discharge Summary ---
Discharge Summary Hospital Course Date of Admission Apr 25, 2017 at 12:15 Date of Discharge Apr 29, 2017 at 16:35 Admitting Diagnosis abdominal pain HPI Kim Gallagher is a 57 year old female who was admitted on Apr 25, 2017 at 12: 15 for Abdominal Pain Hospital Course [id number] Discharge Discharge Disposition Patient was discharged to Home (01) Discharge Diagnoses: Fara Espinoza NP May 01, 2017 11:13
--- NOTE | 2017-05-02 00:46 | Discharge Summary 2 SIG ---
DATE OF ADMISSION: 04/25/2017 DATE OF DISCHARGE: 04/29/2017 CONSULTANTS: 1. Marcus Chavez M.D. 2. Thomas Olivares M.D. 3. Shawn Boyd M.D. BRIEF HOSPITAL COURSE: The patient is a 57-year-old, female with known diagnosis of diverticulitis. She reported lower abdominal pain that started 2 nights prior to admission with associated hematemesis, hematochezia, diarrhea, and nausea. On evaluation at ED, laboratories showed normal WBC. CT of the abdomen and pelvis showed diverticulitis. She was given Zofran and was started on ciprofloxacin and Flagyl. She was then admitted to medical floor for acute diverticulitis and acute renal failure. Creatinine was 1.3. She was seen by Dr. Boyd. Antibiotics were continued. Blood culture did not isolate any growth. Stool culture was negative for C. diff. She was given pain management and was given morphine. Spine MRI showed spinal stenosis and degenerative changes. She was given IV hydration and electrolyte replacement. She was followed by gastrointestinal who recommended that the patient would need colonoscopy two months post discharge. She was advised low fiber diet. She was tolerating diet well. She had hematuria seen on urinalysis and was advised to follow up with PCP. The patient was eventually discharged home. Advised to follow up as an outpatient. FINAL DIAGNOSES: 1. Acute diverticulitis. 2. Acute renal failure. 3. Ovarian cancer status post hysterectomy and oophorectomy. 4. Hypertension. 5. Hematuria. 6. Lumbar spondylosis. Christos Pandya M.D. I have been assigned to dictate discharge summary on this account and I was not involved in the patient's management. Fara Espinoza N.P. DR: MIRNA JOB#: [id number] CC:
--- NOTE | 2017-05-02 08:33 | Cardiology Report ---
APPROVED REPORT EKG Measurement Heart [id number] Normal sinus rhythm Normal ECG
== END 2017-04-29 16:35 | disposition home or self-care (01) | DRG 392 ==
LOC: EMR 11:52 → 4E 12:15 → EDBEDREQ 12:53 → 4E 18:17
DX: K57.92 Diverticulitis of intestine, part unspecified, without perforation or abscess without bleeding (principal); N17.9 Acute kidney failure, unspecified; I10 Essential (primary) hypertension; Z85.43 Personal history of malignant neoplasm of ovary; E66.9 Obesity, unspecified; E11.9 Type 2 diabetes mellitus without complications; R19.7 Diarrhea, unspecified; A08.4 Viral intestinal infection, unspecified; Z88.6 Allergy status to analgesic agent; Z88.8 Allergy status to other drugs, medicaments and biological substances; M51.16 Intervertebral disc disorders with radiculopathy, lumbar region; M47.896 Other spondylosis, lumbar region; Z90.710 Acquired absence of both cervix and uterus; Z90.722 Acquired absence of ovaries, bilateral; K52.89 Other specified noninfective gastroenteritis and colitis; G89.29 Other chronic pain; R31.9 Hematuria, unspecified
CPT/HCPCS: 36415; 72148; 74176; 80053; 81003; 82270; 82962; 83036; 83605; 83690; 84443; 85025; 85610; 85730; 87040; 87324; 93005; J1815; J2405; J8499

== ENCOUNTER 2017-05-20 12:12 | Inpatient (IN) | payer MEDICARE, OTHER ==
[~2017-05-20] VITALS: Ht 162.6 cm; Wt 89.4 kg
[~2017-05-20 12:12] MED LIST changes: +BREO ELLIPTA 11 EACH IH; +CIPRO500 MG PO; +COLACE100 MG ORAL; +COZAAR50 MG ORAL; +DEXILANT60 MG ORAL; +FLAGYL500 MG ORAL; +FUROSEMIDE20 M1 ORAL; +IMODIUM A-D2 M2 PO; +MAXZIDE 37.5 M1 EAC1 PO; +PROTONIX40 MG ORAL; +VENTOLIN HFA18 GM INH; +ZOFRAN8 MG ORAL
[2017-05-20 13:30] VITALS: BP 149/97
[2017-05-20 13:38] LABS: APPEARANCE,URINE SLIGHTLY CLOUDY; KETONES,URINE 2+ (NEGATIVE); LEUKOCYTE ESTERASE ,URINE 2+ (NEGATIVE); NITRITE,URINE POSITIVE (NEGATIVE); PH,URINE 5 (4.5-8.0); PROTEIN,URINE 3+ (NEGATIVE); UROBILINOGEN,URINE 4 MG/DL (0.0-1.0)
[2017-05-20 13:55] LABS: BACTERIA,URINE MODERATE /HPF; SQUAMOUS EPITHELIAL CELL,UR FEW /LPF (NONE/OCC)
[2017-05-20 13:56] LABS: ICTOTEST NEGATIVE; MUCUS,URINE MODERATE /LPF (NONE/OCC)
[2017-05-20 14:02] LABS: BASOPHILS % (AUTO) 0.5 % (0.0-2.0); LYMPHOCYTES % (AUTO) 17.3 % (20.0-45.0); MEAN CORPUSCULAR HEMOGLOBIN 35.1 PG (27.0-31.0); MEAN CORPUSCULAR HGB CONC 34.2 G/DL (32.0-36.0); MEAN CORPUSCULAR VOLUME 103 FL (80-99); MEAN PLATELET VOLUME 7.2 FL (6.5-10.1); MONOCYTES % (AUTO) 5.2 % (1.0-10.0); NEUTROPHILS % (AUTO) 76.1 % (45.0-75.0); PLATELET COUNT 189 K/UL (150-450); RED BLOOD COUNT 4.55 M/UL (4.20-5.40); RED CELL DISTRIBUTION WIDTH 11.1 % (11.6-14.8)
--- NOTE | 2017-05-20 14:05 | Emergency Room Report ---
History of Present Illness General Chief Complaint: Abdominal Pain Source: Patient Present Illness HPI 57-year-old female history of diverticulitis in April presenting with left-sided abdominal pain for the last 3 days. Patient states her abdominal pain is sharp and dull in quality intermittent associated with some nausea and vomiting nonbloody. Patient also states she has had watery nonbloody diarrhea about one episode per day. Patient states that she completed her course of antibiotics for her last diverticulitis. Since her last episode her pain resolved but then came back for the last 3 days. Patient also complains of subjective fever and chills. Patient denies chest pain or shortness of breath. Allergies: Coded Allergies: ASPIRIN (Verified Allergy, Unknown, 03/27/17) LATEX (Verified Allergy, Unknown, 03/27/17) PINEAPPLE (Verified Allergy, Unknown, 03/27/17) STRAWBERRY (Verified Allergy, Unknown, 03/27/17) Nursing Documentation-PMH Hx Cardiac Problems: No Hx Hypertension: Yes Hx Diabetes: Yes Hx Cancer: Yes - Ovarian Hx Gastrointestinal Problems: Yes - Diverticulosis Hx Neurological Problems: No Review of Systems Gastrointestinal: Reports: abdominal pain, diarrhea, vomiting All Other Systems: negative except mentioned in HPI Physical Exam Vital Signs Date Time Temp Pulse Resp B/P Pulse Ox O2 Delivery O2 Flow Rate FiO2 05/20/17 12:17 98.6 90 18 130/82 95 Room Air General Appearance: normal inspection, well appearing, no apparent distress, alert, GCS 15, non-toxic Head: normocephalic, atraumatic Eyes: bilateral eye EOMI, bilateral eye PERRL, bilateral eye normal inspection ENT: normal ENT inspection, normal pharynx, normal voice, moist mucus membranes Neck: normal inspection, full range of motion, supple, no bony tend Respiratory: normal inspection, lungs clear, normal breath sounds, no respiratory distress, no retraction, no wheezing, speaking full sentences, chest symmetrical Cardiovascular #1: normal inspection, regular rate, rhythm, no edema, normal capillary refill Gastrointestinal: normal inspection, soft, other - LLQ tenderness, +voluntary guarding Musculoskeletal: normal inspection, back normal, normal range of motion, non- tender Neurologic: normal inspection, alert, oriented x3, responsive, motor strength/ tone normal, sensory intact, normal gait, speech normal Medical Decision Making ER Course 57 yo F p/w abdominal pain for 3 days DDX: appendicitis, diverticulitis, UTI, pyelonephritis, intraabdominal abscess sequelae from diverticulitis last month Plan: IV access, obtain labs, UA/UCX, fluids, NPO, CT abdo pelvis, pain control , antibiotics if indicated ER course: EKG NSR no acute changes labs: no leukocytosis CMP IS PENDING +UTI on urine CT abdo pelvis pt received fluids, zofran ceftriaxone IV ordred to cover for UTI and possible intraabdominal infection flagyl given for suspected C. diff given recent abx use last mo continued to have n/v, more zofran given and pain control Disposition: Patient signed out to Dr. Pedro rogers -pending CT abdo pelvis -received ceftriaxone/flagyl -pending C. diff toxin EKG Diagnostic Results Rate: normal Rhythm: NSR ST Segments: no acute changes Last Vital Signs Date Time Temp Pulse Resp B/P Pulse Ox O2 Delivery O2 Flow Rate FiO2 05/20/17 12:17 98.6 90 18 130/82 95 Room Air Referrals: NOT CHOSEN COIRNA/,REFERRING (PCP) Horacio Tran M.D. May 20, 2017 14:05
[2017-05-20] MEDS ORDERED: cefTRIAXone 1 GM in NS 55 ML IVPB ONE (14:15)
[2017-05-20 14:21] LABS: ALBUMIN/GLOBULIN RATIO 1.4 (1.0-2.7); CALCIUM 10.9 mg/dL (8.6-10.2); CREATININE 1.4 mg/dL (0.5-0.9); GLOMERULAR FILTRATION RATE 46.9 mL/min (>60); POTASSIUM 3.3 mEQ/L (3.4-4.9); TOTAL PROTEIN 8.3 g/dL (6.6-8.7)
[2017-05-20 14:27] VITALS: BP 117/64
[2017-05-20] MEDS ORDERED: metroNIDAZOLE 500mg 100 ML IVPB ONE (14:30)
[2017-05-20] MEDS ORDERED: Morphine Sulfate 4mg/ml Inj IVP ONE (14:45)
[2017-05-20 16:00] VITALS: BP 132/84
--- NOTE | 2017-05-20 16:10 | Diagnostic Imaging Report ---
Clinical Indication: Abdominal pain Technique: No oral contrast utilized, per emergency room physician request. IV administration nonionic contrast. Venous phase spiral acquisition obtained through the abdomen and pelvis. Multiplanar reconstructions were generated. Total dose length product 973 mGycm. CTDIvol(s) 18 mGy. Dose reduction achieved using automated exposure control Comparison: 04/25/2017 noncontrast study Findings: Again demonstrated is a small amount of free intraperitoneal fluid. This is seen in the pelvis as well as over the dome of the liver and spleen and in the left paracolic gutter. The appendix is not visualized. Suggestion of a surgical clip in the region of the cecum suggest prior appendectomy and there is what may be an appendiceal stump. The distal small bowel demonstrates some wall thickening. This is also to some extent evident previously. No small bowel distention No free intraperitoneal air. There is colonic diverticulosis. There is wall thickening of the sigmoid colon again demonstrated. No significant infiltration of the perisigmoid fat is demonstrated The distal esophagus, stomach, duodenum are unremarkable. The extrahepatic ducts are dilated, common bile duct measuring 11 mm in diameter. This was also evident previously. No downstream obstructive lesion is demonstrated. The liver, pancreas, spleen, adrenals, kidneys are all unremarkable. No retroperitoneal or mesenteric mass or adenopathy. The uterus is absent, presumably postsurgically. No pelvic mass or adenopathy. The included lung bases are clear. The bones demonstrate degenerative spondylosis changes. Impression: Sigmoid wall thickening. This appears somewhat similar to the previous exam.. Suspect on the basis of muscle hypertrophy related to the diverticulosis. However, acute colitis or, less likely, diverticulitis are also possibilities Thickwalled distal small bowel, similar findings also evident previously. Findings are consistent with enteritis, otherwise nonspecific as regards etiology Trace free intraperitoneal fluid, also previously demonstrated, most probably similar in extent. Etiology uncertain Evidence of prior cholecystectomy. Dilated common bile duct, without definite downstream obstructive process. Most likely on the basis of age and postcholecystectomy state, particularly as this is stable from the previous exam. However, downstream obstruction not completely excludable, and correlation with liver function tests is recommended Other findings as noted, including degenerative spondylosis, surgically absent uterus The CT scanner at [facility] is accredited by the [employer] and the scans are performed using protocols designed to limit radiation exposure to as low as reasonably achievable to attain images of sufficient resolution adequate for diagnostic evaluation.
[2017-05-20 18:30] VITALS: BP 134/83
[2017-05-20 20:00] VITALS: BP 141/97
[2017-05-20] MEDS: D5NS 1,000 ML IV SCH (21:10)
[2017-05-20] MEDS: MS Contin 15mg tab ORAL SCH (21:13)
[2017-05-20] MEDS ORDERED: MS Contin 15mg tab ORAL SCH (22:00)
[2017-05-21] VITALS: BP 136/86
[2017-05-21 04:00] VITALS: BP 131/78
[2017-05-21] MEDS: MS Contin 15mg tab ORAL SCH ×2 (06:20→14:50)
[2017-05-21 07:33] LABS: BASOPHILS % (AUTO) 0.4 % (0.0-2.0); LYMPHOCYTES % (AUTO) 30.7 % (20.0-45.0); MEAN CORPUSCULAR HGB CONC 33.1 G/DL (32.0-36.0); MEAN CORPUSCULAR VOLUME 103 FL (80-99); MEAN PLATELET VOLUME 7.4 FL (6.5-10.1); MONOCYTES % (AUTO) 9.5 % (1.0-10.0); NEUTROPHILS % (AUTO) 53.4 % (45.0-75.0); PLATELET COUNT 151 K/UL (150-450); RED BLOOD COUNT 3.59 M/UL (4.20-5.40); RED CELL DISTRIBUTION WIDTH 11.2 % (11.6-14.8); WHITE BLOOD COUNT 5.7 K/UL (4.8-10.8)
[2017-05-21 07:47] LABS: ALANINE AMINOTRANSFERASE 8 U/L (3-33); ALBUMIN/GLOBULIN RATIO 1.6 (1.0-2.7); ANION GAP 12 (5-15); ASPARTATE AMINO TRANSFERASE 12 U/L (5-40); CALCIUM 11.3 mg/dL (8.6-10.2); CARBON DIOXIDE 28 mEQ/L (20-30); CHLORIDE 103 mEQ/L (98-107); GLOMERULAR FILTRATION RATE > 60 mL/min (>60); HEMOLYSIS 4; POTASSIUM 3.2 mEQ/L (3.4-4.9); SODIUM 143 mEQ/L (135-145); TOTAL PROTEIN 6.5 g/dL (6.6-8.7)
[2017-05-21 08:15] VITALS: BP 114/71
[2017-05-21] MEDS: Triamterene/Hctz 37.5/25 cap ORAL SCH (09:55)
[2017-05-21] MEDS: Losartan 50mg tab ORAL SCH (09:56)
[2017-05-21] MEDS: D5NS 1,000 ML IV SCH ×2 (09:58→20:27)
[2017-05-21] MEDS: Enoxaparin 40mg Inj SUBQ SCH (09:58)
[2017-05-21 11:52] VITALS: BP 121/82
--- NOTE | 2017-05-21 12:32 | GI Initial Consult Note ---
History of Present Illness General Date patient seen: May 21, 2017 Time patient seen: 11:00 Reason for Hospitalization: Abdominal Pain Referring physician: ESAU Reason for Consultation: ABDOMINAL PAIN Present Illness HPI 57-year-old female history of diverticulitis in April presenting with left-sided abdominal pain for the last 3 days. Patient states her abdominal pain is sharp and dull in quality intermittent associated with some nausea and vomiting nonbloody. Patient also states she has had watery nonbloody diarrhea about one episode per day. Patient states that she completed her course of antibiotics for her last diverticulitis. Since her last episode her pain resolved but then came back for the last 3 days. Patient also complains of subjective fever and chills. Patient denies chest pain or shortness of breath. GI consult. HPI as noted above. GI consulted for abdominal pain. Pt seen on floor, awake A&Ox4 NAD ambulatory with no active s/sx of n/v/d. Pt recently seen here at [facility] in late April with dx of diverticulitis. CT AP shows sigmoid wall thickening as in the previous exam, however, there is no noted diverticulitis noted on the CT at this time, see full report below. Patient last colonoscopy was performed in 2010. Procedure: CT Abdomen Pelvis w/Contrast Clinical Indication: Abdominal pain Impression: Sigmoid wall thickening. This appears somewhat similar to the previous exam.. Suspect on the basis of muscle hypertrophy related to the diverticulosis. However, acute colitis or, less likely, diverticulitis are also possibilities Thick walled distal small bowel, similar findings also evident previously. Findings are consistent with enteritis, otherwise nonspecific as regards etiology Trace free intraperitoneal fluid, also previously demonstrated, most probably similar in extent. Etiology uncertain Evidence of prior cholecystectomy. Dilated common bile duct, without definite downstream obstructive process. Most likely on the basis of age and postcholecystectomy state, particularly as this is stable from the previous exam. However, downstream obstruction not completely excludable, and correlation with liver function tests is recommended Other findings as noted, including degenerative spondylosis, surgically absent uterus Home Meds Reported Medications Ciprofloxacin* (CIPRO*) 500 Mg Tablet, 500 MG PO BID for 5 Days, #10 TAB 04/29/17 Metronidazole* (FLAGYL*) 500 Mg Tablet, 500 MG ORAL EVERY 8 HOURS for 5 Days, # 15 TAB 04/29/17 Ciprofloxacin* (CIPRO*) 500 Mg Tablet, 500 MG PO BID for 5 Days, #10 TAB 04/29/17 Ciprofloxacin* (CIPRO*) 500 Mg Tablet, 500 MG PO BID for 5 Days, #10 TAB 04/29/17 Ciprofloxacin* (CIPRO*) 500 Mg Tablet, 500 MG PO BID for 5 Days, #10 TAB 04/29/17 Fluticasone/Vilanterol (Breo Ellipta 100-25 Mcg INH) 1 Each Blst.w.dev, 1 EACH IH DAILY, EACH 04/25/17 Albuterol Sulfate (VENTOLIN HFA) 18 Gm Hfa.aer.ad, 2 PUFFS INH FOUR TIMES A DAY Y for Shortness of Breath, #18 GM 0 Refills 04/25/17 Loperamide HCl (IMODIUM A-D) 2 Mg Capsule, 2 MG PO FOUR TIMES A DAY Y for Diarrhea, CAP 04/25/17 Ondansetron Hcl* (ZOFRAN*) 8 Mg Tablet, 8 MG ORAL Q8HR Y for Nausea & Vomiting, #4 TAB 0 Refills 04/25/17 Dexlansoprazole (Dexilant) 60 Mg Cap..bp, 60 MG ORAL DAILY, CAP 04/25/17 Furosemide* (LASIX*) 20 Mg Tablet, 20 MG ORAL DAILY, TAB 04/25/17 Losartan Potassium* (COZAAR*) 50 Mg Tablet, 50 MG ORAL DAILY, TAB 04/25/17 Pantoprazole* (PROTONIX*) 40 Mg Tablet.dr, 40 MG ORAL DAILY, TAB 04/25/17 Triamterene/Hydrochlorothiazid (MAXZIDE 37.5 MG-25 MG TABLET) 1 Each Tablet, 1 EACH PO DAILY, TAB 04/25/17 Docusate Sodium* (COLACE*) 100 Mg Capsule, 100 MG ORAL TWICE A DAY, CAP 04/25/17 Hydromorphone Hcl (DILAUDID) 8 Mg Tablet, 4 MG PO Q6HR Y for Breakthrough Pain, TAB 03/27/17 Prochlorperazine Maleate* (COMPAZINE*) 5 Mg Tablet, 10 MG ORAL Q8HR Y for Nausea & Vomiting, TAB 0 Refills 03/27/17 Morphine HCl (Morphine Sulfate ER) 15 Mg Tablet.er, 15 MG ORAL Q8HR, TAB 03/27/17 Potassium Chloride (KLOR-CON) 20 Meq Packet, 20 MEQ ORAL DAILY, #30 PKT 0 Refills 03/27/17 Losartan Potassium* (LOSARTAN POTASSIUM*) 50 Mg Tablet, 50 MG ORAL DAILY, TAB 03/27/17 Triamterene/Hctz (Triamterene-Hctz 37.5-25 mg Cp) 1 Each Capsule, 1 CAP ORAL DAILY, #10 CAP 0 Refills 03/27/17 Med list reviewed/reconciled: Yes Allergies: Coded Allergies: ASPIRIN (Verified Allergy, Unknown, 03/27/17) LATEX (Verified Allergy, Unknown, 03/27/17) PINEAPPLE (Verified Allergy, Unknown, 03/27/17) STRAWBERRY (Verified Allergy, Unknown, 03/27/17) Patient History History Provided By: Patient, Medical Record PMH Narrative Hx Cardiac Problems: No Hx Hypertension: Yes Hx Diabetes: Yes Hx Cancer: Yes - Ovarian Hx Gastrointestinal Problems: Yes - Diverticulosis, diverticulitis Hx Neurological Problems: No Review of Systems All Other Systems: negative except mentioned in HPI Physical Exam Vital Signs Date Time Temp Pulse Resp B/P Pulse Ox O2 Delivery O2 Flow Rate FiO2 05/20/17 12:17 98.6 90 18 130/82 95 Room Air Sp02 EP Interpretation: reviewed Labs Laboratory Tests Test 05/20/17 13:30 05/20/17 13:55 05/21/17 06:15 Urine Color Yellow Urine Appearance Slightly cloudy Urine pH 5 (4.5-8.0) Urine Specific [place] 1.030 (1.005-1.035) Urine Protein 3+ (NEGATIVE) H Urine Glucose (UA) 1+ (NEGATIVE) H Urine Ketones 2+ (NEGATIVE) H Urine Occult Blood 5+ (NEGATIVE) H Urine Nitrite Positive (NEGATIVE) H Urine Bilirubin 1+ (NEGATIVE) H Urine Ictotest Negative Urine Urobilinogen 4 MG/DL (0.0-1.0) H Urine Leukocyte Esterase 2+ (NEGATIVE) H Urine RBC 5-10 /HPF (0 - 2) H Urine WBC 2-4 /HPF (0 - 2) Urine Squamous Epithelial Cells Few /LPF (NONE/OCC) Urine Bacteria Moderate /HPF (NONE) H Urine Hyaline Casts 2-4 /LPF (NONE) H Urine Mucus Moderate /LPF (NONE/OCC) H White Blood Count 8.0 K/UL (4.8-10.8) 5.7 K/UL (4.8-10.8) Red Blood Count 4.55 M/UL (4.20-5.40) 3.59 M/UL (4.20-5.40) L Hemoglobin 16.0 G/DL (12.0-16.0) 12.2 G/DL (12.0-16.0) Hematocrit 46.7 % (37.0-47.0) 36.9 % (37.0-47.0) L Mean Corpuscular Volume 103 FL (80-99) H 103 FL (80-99) H Mean Corpuscular Hemoglobin 35.1 PG (27.0-31.0) H 34.0 PG (27.0-31.0) H Mean Corpuscular Hemoglobin Concent 34.2 G/DL (32.0-36.0) 33.1 G/DL (32.0-36.0) Red Cell Distribution Width 11.1 % (11.6-14.8) L 11.2 % (11.6-14.8) L Platelet Count 189 K/UL (150-450) 151 K/UL (150-450) Mean Platelet Volume 7.2 FL (6.5-10.1) 7.4 FL (6.5-10.1) Neutrophils (%) (Auto) 76.1 % (45.0-75.0) H 53.4 % (45.0-75.0) Lymphocytes (%) (Auto) 17.3 % (20.0-45.0) L 30.7 % (20.0-45.0) Monocytes (%) (Auto) 5.2 % (1.0-10.0) 9.5 % (1.0-10.0) Eosinophils (%) (Auto) 1.0 % (0.0-3.0) 6.0 % (0.0-3.0) H Basophils (%) (Auto) 0.5 % (0.0-2.0) 0.4 % (0.0-2.0) Sodium Level 144 mEQ/L (135-145) 143 mEQ/L (135-145) Potassium Level 3.3 mEQ/L (3.4-4.9) L 3.2 mEQ/L (3.4-4.9) L Chloride Level 99 mEQ/L (98-107) 103 mEQ/L (98-107) Carbon Dioxide Level 24 mEQ/L (20-30) 28 mEQ/L (20-30) Anion Gap 21 (5-15) H 12 (5-15) Blood Urea Nitrogen 25 mg/dL (7-23) H 27 mg/dL (7-23) H Creatinine 1.4 mg/dL (0.5-0.9) H 1.0 mg/dL (0.5-0.9) H Estimat Glomerular Filtration Rate 46.9 mL/min (>60) > 60 mL/min (>60) Glucose Level 134 mg/dL (74-106) H 112 mg/dL (74-106) H Calcium Level 10.9 mg/dL (8.6-10.2) H 11.3 mg/dL (8.6-10.2) H Total Bilirubin 0.6 mg/dL (0.0-1.2) 0.4 mg/dL (0.0-1.2) Aspartate Amino Transf (AST/SGOT) 14 U/L (5-40) 12 U/L (5-40) Alanine Aminotransferase (ALT/SGPT) 11 U/L (3-33) 8 U/L (3-33) Alkaline Phosphatase 50 U/L (35-104) 36 U/L (35-104) Total Protein 8.3 g/dL (6.6-8.7) 6.5 g/dL (6.6-8.7) L Albumin 4.9 g/dL (3.5-5.2) 4.0 g/dL (3.5-5.2) Globulin 3.4 g/dL 2.5 g/dL Albumin/Globulin Ratio 1.4 (1.0-2.7) 1.6 (1.0-2.7) Lipase 14 U/L (< 60) General Appearance: well appearing, no apparent distress, alert Head: normocephalic EENT: normal ENT inspection Neck: supple Respiratory: normal breath sounds, no respiratory distress Cardiovascular: normal rate Gastrointestinal: normal inspection, non tender, soft, normal bowel sounds Rectal: deferred Musculoskeletal: back normal Neurologic: alert, oriented x3, responsive Psychiatric: normal inspection, judgement/insight normal, memory normal Skin: normal inspection, normal color, no rash, warm/dry Lymphatic: normal inspection, no adenopathy Current Medications Current Medications Medications (Trade) Dose Ordered Sig/Kermit Route PRN Reason Start Time Stop Time Status Last Admin Dose Admin Dextrose/Sodium Chloride (D5ns) 1,000 ml @ 80 mls/hr [id number] IV 05/20/17 19:30 06/19/17 19:29 05/21/17 09:58 Enoxaparin Sodium 40 mg 40 mg DAILY SUBQ 05/21/17 09:00 06/20/17 08:59 05/21/17 09:58 Furosemide (Lasix) 20 mg DAILY ORAL 05/21/17 09:00 06/20/17 08:59 Hydromorphone HCl (Dilaudid) 4 mg Q4H PRN ORAL BREAKTHROUGH PAIN 05/20/17 19:30 05/27/17 19:29 Losartan Potassium (Cozaar) 50 mg DAILY ORAL 05/21/17 09:00 06/20/17 08:59 05/21/17 09:56 Morphine Sulfate (MS Contin) 15 mg Q8HR ORAL 05/20/17 22:00 05/27/17 21:59 05/21/17 06:20 Ondansetron HCl (Zofran) 8 mg Q6H PRN IVP Nausea & Vomiting 05/20/17 19:30 06/19/17 19:29 05/20/17 21:10 Pantoprazole (Protonix) 40 mg DAILY ORAL 05/22/17 09:00 06/21/17 08:59 Triamterene/HCTZ (Dyazide) 1 cap DAILY ORAL 05/21/17 09:00 06/20/17 08:59 05/21/17 09:55 GI: Plan Problems: (1) Common bile duct dilation (2) Abdominal pain (3) Diverticulitis Plan CT Abdomen Pelvis w/Contrast reviewed >> Sigmoid wall thickening. Enteritis. CBD dilation 11mm >> ordered MRCP s/p colonoscopy 2010 with polyps and hemorrhoids per patient defer colonoscopy at this time given recent diverticulitis less than 1 month ago fu MRCP, ok to adv diet after imaging procedure fu stool studies, cdiff >> will consider Imodium after pain mgmt H2B fu labs recommend colonoscopy x 1 month after dc date Discussed with Dr. Vosoghi. Thank you for referring this patient, we will follow. Emily Braxton N.P. May 21, 2017 12:32
--- NOTE | 2017-05-21 13:44 | History & Physical ---
History and Physical History & Physicial patient is seen and examined. Dictation completed Christos Pandya MD May 21, 2017 13:44
--- NOTE | 2017-05-21 13:46 | General Progress Note ---
Assessment/Plan Status: stable Assessment/Plan 1- Collitis/Diverticulitis 2- Ovarian CA survivor 3- HypoKalemia 4- Pelvic pain management 5- HTN 6- Gi-DVT prophylaxia 7- UTI Plan: GI, ID services consulted current conservative management Subjective ROS Limited/Unobtainable: No Constitutional: Reports: no symptoms HEENT: Reports: no symptoms Cardiovascular: Reports: no symptoms Allergies: Coded Allergies: ASPIRIN (Verified Allergy, Unknown, 03/27/17) LATEX (Verified Allergy, Unknown, 03/27/17) PINEAPPLE (Verified Allergy, Unknown, 03/27/17) STRAWBERRY (Verified Allergy, Unknown, 03/27/17) Objective Last 24 Hour Vital Signs Date Time Temp Pulse Resp B/P Pulse Ox O2 Delivery O2 Flow Rate FiO2 05/21/17 11:52 98.7 74 19 121/82 99 Room Air 05/21/17 09:56 114/71 05/21/17 08:15 98.2 68 20 114/71 98 Room Air 05/21/17 04:00 97.8 71 18 131/78 100 Room Air 05/21/17 00:00 97.9 68 18 136/86 98 Room Air 05/20/17 20:00 75 18 141/97 98 Room Air 05/20/17 18:33 62 12 134/83 98 Room Air 05/20/17 18:30 62 12 134/83 98 Room Air 05/20/17 16:00 84 13 132/84 98 Room Air 05/20/17 15:10 98.6 05/20/17 14:27 91 12 117/64 100 Room Air Intake and Output 05/20/17 05/21/17 19:00 07:00 Intake Total 55 ml 790 ml Output Total 10 ml 2 ml Balance 45 ml 788 ml Intake Oral 0 ml IV Total 55 ml 790 ml Output Urine Total 10 ml 2 ml # Bowel Movements 2 Laboratory Tests 05/20/17 13:55: White Blood Count 8.0, Red Blood Count 4.55, Hemoglobin 16.0, Hematocrit 46.7, Mean Corpuscular Volume 103H, Mean Corpuscular Hemoglobin 35.1H, Mean Corpuscular Hemoglobin Concent 34.2, Red Cell Distribution Width 11.1L, Platelet Count 189, Mean Platelet Volume 7.2, Neutrophils (%) (Auto) 76.1H, Lymphocytes (%) (Auto) 17.3L, Monocytes (%) (Auto) 5.2, Eosinophils (%) (Auto) 1.0, Basophils (%) (Auto) 0.5, Sodium Level 144, Potassium Level 3.3L, Chloride Level 99, Carbon Dioxide Level 24, Anion Gap 21H, Blood Urea Nitrogen 25H, Creatinine 1.4H, Estimat Glomerular Filtration Rate 46.9, Glucose Level 134H, Calcium Level 10.9H, Total Bilirubin 0.6, Aspartate Amino Transf (AST/SGOT) 14, Alanine Aminotransferase (ALT/SGPT) 11, Alkaline Phosphatase 50, Total Protein 8.3, Albumin 4.9, Globulin 3.4, Albumin/Globulin Ratio 1.4, Lipase 14 05/21/17 06:15: White Blood Count 5.7, Red Blood Count 3.59L, Hemoglobin 12.2, Hematocrit 36.9L , Mean Corpuscular Volume 103H, Mean Corpuscular Hemoglobin 34.0H, Mean Corpuscular Hemoglobin Concent 33.1, Red Cell Distribution Width 11.2L, Platelet Count 151, Mean Platelet Volume 7.4, Neutrophils (%) (Auto) 53.4, Lymphocytes (%) (Auto) 30.7, Monocytes (%) (Auto) 9.5, Eosinophils (%) (Auto) 6.0H, Basophils (%) (Auto) 0.4, Sodium Level 143, Potassium Level 3.2L, Chloride Level 103, Carbon Dioxide Level 28, Anion Gap 12, Blood Urea Nitrogen 27H, Creatinine 1.0H, Estimat Glomerular Filtration Rate > 60, Glucose Level 112H, Calcium Level 11.3H, Total Bilirubin 0.4, Aspartate Amino Transf (AST/SGOT ) 12, Alanine Aminotransferase (ALT/SGPT) 8, Alkaline Phosphatase 36, Total Protein 6.5L, Albumin 4.0, Globulin 2.5, Albumin/Globulin Ratio 1.6 Height (Feet): 5 Height (Inches): 4.00 Weight (Pounds): 185 General Appearance: WD/WN EENT: PERRL/EOMI Neck: supple Cardiovascular: normal rate Respiratory/Chest: lungs clear Abdomen: distended, guarding Extremities: non-tender 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
--- NOTE | 2017-05-21 15:22 | Infectious Diseases Prog Note ---
Infectious Disease Consult Infectious Disease Consult Infectious Disease Consult INFECTIOUS DISEASE CONSULTATION DATE OF CONSULTATION: 21may2017 CONSULTING PHYSICIAN: Eder Payne M.D., [facility], [facility] Covering for Dr. Boyd REFERRING PHYSICIAN: Dr. Christos Pandya REASON FOR CONSULTATION: abd pain, nausea, vomiting, diarrhea HISTORY OF PRESENT ILLNESS: 57-year-old female with past medical history of ovarian cancer diagnosed a year ago. The patient is status post chemo (last in February2017) and surgery (), with course since complicated by C diff colitis in January2017 and 2 episodes of diverticulitis, most recently in April2017 for which she received at least 7days of cipro and flagyl, completed on . Now with >48 hrs of recurrence of prior symptoms consistent with diverticulitis, abdominal pain, nausea, and vomiting. loose stools superimposed on h/o constipation, and reports blood on toilet paper but otherwise no melena or hematochezia. According to her, this was very similar to her prior diverticulitis symptoms. Last colonoscopy was in 2010. No rectal bleeding. Denies f/c, no rash, no sick contacts, her boyfriend is well, denies any recent travel, and she does endorse some dysuria w/o urinary urgency or frequency during this same period. has been given a dose of IV flagyl since admission. Ucx growing >100k cfu GNR, pending identification. PAST MEDICAL HISTORY: 1. History of ovarian cancer, s/p last chemo February2017 2. Diabetes. 3. Hypertension. 4. Diverticulitis, and April2017 5. C. difficile colitis January 2017, treated with PO flagyl, vanc, and rifaxamin. 6. R chest wall medi-port 7. hemorrhoids Past Surgical History: Hysterectomy, oophorectomy, appendectomy, and cholecystectomy--11Nov2016 ALLERGIES: Lasix, aspirin, strawberries, and pineapples. ANTIBIOTICS: Home and hospitalized medications reviewed. SOCIAL HISTORY: lives with significant others. denies etoh, tobacco, or illicits. FAMILY HISTORY: Noncontributory REVIEW OF SYSTEMS: 11 point ROS negative except for that mentioned in HPI above. PHYSICAL EXAM: VITAL SIGNS: reviewed. afebrile. GEN: awake, alert, non toxic appearing HEENT: Mild pale conjunctiva. oral mucosa dry, pharynx w/o exudate or effusion. No icterus. Head normocephalic, neck supple. NECK: No cervical LAD CHEST: Clear to auscultation bilaterally. R chest wall mediport c/d/i. HEART: S1 and S2, no murmurs, no rubs. ABDOMEN: scar in the midline from prior abdominal surgeries. Abdomen is soft. Bowel sounds are hypoactive. There is tenderness to palpation in epigastric, right upper quadrant, and left lower quadrant. No rebound. No guarding. No peritoneal sign. EXTREMITIES: No cyanosis, no clubbing, no edema. NEUROLOGIC: Awake, alert, no focal neurologic motor deficits. : no external lesions or rash LYMPH: no axillary LAD RECTAL: deferred LABORATORY AND DIAGNOSTIC DATA: WBC 5.7 (down from 8.0), hgb 12.2 (down from 16.0), MCV 103, plt 151, N 53.4%, eos 6.0%, AEC <450 Ba 143, K 3.2, Cl 103, CO2 28, BUN 27, SCr 1.0 (down from 1.4), gluc 112, Ca 11.3, t bili 0.4, ast 12, alt 8, alk 36, prot 6.5, alb 4.0, lipase 14 u/a 3_ protein, + nitrite, 2+LE, 2-4 WBC ucx: >100k cfu GNR ordered: Stool C diff toxin, stool cx, MRSA and VRE screen RADIOLOGY: Patient : ALESSANDRO LUDWIG Referring Physician: Horacio Tran M.D. ID Number: [id number] Service Date: 05/20/17 : 1960 Report Date: 05/20/17 Gender: F Accession No.: [id number] Location: 4W Procedure: CT Abdomen Pelvis w/Contrast Clinical Indication: Abdominal pain Technique: No oral contrast utilized, per emergency room physician request. IV administration nonionic contrast. Venous phase spiral acquisition obtained through the abdomen and pelvis. Multiplanar reconstructions were generated. Total dose length product 973 mGycm. CTDIvol(s) 18 mGy. Dose reduction achieved using automated exposure control Comparison: 04/25/2017 noncontrast study Findings: Again demonstrated is a small amount of free intraperitoneal fluid. This is seen in the pelvis as well as over the dome of the liver and spleen and in the left paracolic gutter. The appendix is not visualized. Suggestion of a surgical clip in the region of the cecum suggest prior appendectomy and there is what may be an appendiceal stump. The distal small bowel demonstrates some wall thickening. This is also to some extent evident previously. No small bowel distention No free intraperitoneal air. There is colonic diverticulosis. There is wall thickening of the sigmoid colon again demonstrated. No significant infiltration of the perisigmoid fat is demonstrated The distal esophagus, stomach, duodenum are unremarkable. The extrahepatic ducts are dilated, common bile duct measuring 11 mm in diameter. This was also evident previously. No downstream obstructive lesion is demonstrated. The liver, pancreas, spleen, adrenals, kidneys are all unremarkable. No retroperitoneal or mesenteric mass or adenopathy. The uterus is absent, presumably postsurgically. No pelvic mass or adenopathy. The included lung bases are clear. The bones demonstrate degenerative spondylosis changes. Impression: Sigmoid wall thickening. This appears somewhat similar to the previous exam.. Suspect on the basis of muscle hypertrophy related to the diverticulosis. However, acute colitis or, less likely, diverticulitis are also possibilities Thickwalled distal small bowel, similar findings also evident previously. Findings are consistent with enteritis, otherwise nonspecific as regards etiology Trace free intraperitoneal fluid, also previously demonstrated, most probably similar in extent. Etiology uncertain Evidence of prior cholecystectomy. Dilated common bile duct, without definite downstream obstructive process. Most likely on the basis of age and postcholecystectomy state, particularly as this is stable from the previous exam. However, downstream obstruction not completely excludable, and correlation with liver function tests is recommended Other findings as noted, including degenerative spondylosis, surgically absent uterus ASSESSMENT AND PLAN 57 y/o female with multiple medical problems, s/p surgery in for ovarian CA and s/p chemo most recently february2017, recent h/o C diff colitis and h/ o diverticulitis completed cipro/flagyl on , admitted with recurrent GI symptoms and CT demonstrating sigmoid thickening and mild enteritis. Has never received radiation, so radiation enteritis not considered. Lacks systemic signs/symptoms of infection w/o leukocytosis or fevers, and now being evaluated by GI for subacute to chronic CBD thickening pending MRCP. Lacks travel or exposure risk, and not currently considered immunocompromised. ASSESSMENT: 1) Enteritis, possible recurrent diverticulitis. possible viral etiology for enteritis, but given recurrent nature, this is less likely. 2) h/o C diff colitis 3) gram negative UTI, uncomplicated 4) CBD dilated with normal LFTs and normal lipase 5) no leukocytosis 6) not febrile 7) h/o ovarian CA s/p chemo 02/19 8) Nausea and vomiting 9) Diarrhea, non bloody 10) Dehydration, improving 11) hypercalcemia PLAN: --follow up stool C diff --follow up stool culture to r/o Salmonella and Shigella --monitor cbc --monitor bmp --f/u MRCP, s/p GI consultation --empiric cipro and flagyl --f/u result of urine culture Thank you for this consultation. Will continue to follow. Covering for Dr. Boyd, please call me with questions, Eder Payne M.D. May 21, 2017 15:22
--- NOTE | 2017-05-21 15:45 | Cardiology Report ---
APPROVED REPORT EKG Measurement Heart [id number] Normal sinus rhythm Normal ECG
--- NOTE | 2017-05-21 16:11 | Diagnostic Imaging Report ---
Indication: Abdominal pain. Common bile duct dilatation demonstrated on prior exams Technique: Coronal and axial single shot fast spin-echo breath-hold, axial T2 FRFSE, 2-D thick slab MRCP, AXIAL 2-D FIESTA fat saturated, axial 3-D dual echo breath-hold, water weighted axial LAVA FLEX, revealed 3-D MRCP images were obtained of the abdomen. MIP reconstructions were generated of the bile ducts Comparison: CT scans of the abdomen pelvis dated 05/20/2017 and 04/25/2017 Findings: There is dilatation of the common bile duct, which measures 12 mm in diameter. There is also mild central intrahepatic biliary ductal dilatation. The gallbladder is surgically absent. The pancreatic duct is slightly prominent. The common bile duct narrows at the level of the ampulla. On the axial T2 fat saturated images and the axial 2-D fiesta images, there is questionably a 7 mm filling defect within the duodenal lumen at the level of the ampulla. This is not confirmed on other sequences, however. This The liver is unremarkable. The pancreas is otherwise unremarkable. The spleen, adrenals, kidneys are unremarkable. There is a small amount of free intraperitoneal fluid over the liver. The enteric structures otherwise appear unremarkable. Impression: Extrahepatic and mild intrahepatic biliary ductal dilatation, also previously reported on multiple prior CT scans. Suspect on the basis of age and postcholecystectomy state. However, there is on a few sequences a 7 mm polypoid lesion protruding into the duodenal lumen at the level of the ampulla. Probably just represents a prominent papilla, axillary mass not completely excludable and endoscopic evaluation should be considered there is high clinical suspicion Trace ascites, also previously described
[2017-05-21 16:24] VITALS: BP 125/76
[2017-05-21] MEDS: metroNIDAZOLE 500mg 100 ML IVPB SCH (18:44)
[2017-05-21] MEDS: HYDROmorphone 4mg tab ORAL PRN (18:44)
[2017-05-21 20:00] VITALS: BP 117/79
--- NOTE | 2017-05-21 20:30 | History and Physical Report ---
DATE OF ADMISSION: 05/20/2017 SOURCE OF INFORMATION: Patient and EMR. HISTORY OF PRESENT ILLNESS: The patient is a pleasant 57-year-old ovarian cancer survivor, who presented with recurrence of abdominal pain and diarrhea for the last three days. The patient denies any fever or chills. The patient denies any hematochezia or hematemesis. REVIEW OF SYSTEMS: All 12 elements of review of systems reviewed. Pertinent positives and negative as above. PAST MEDICAL HISTORY: Diverticulitis, stage IV ovarian cancer, status post chemotherapy, oophorectomy, hysterectomy, and hypertension. PAST SURGICAL HISTORY: Hysterectomy and oophorectomy about 10 months ago. MEDICATIONS: Hospital medications including Dyazide, ranitidine, morphine sulfate, Lasix, Lovenox, D5 normal saline at 80 mL/hour. ALLERGIES: Aspirin, latex, pineapple, and strawberry. SOCIAL HISTORY: The patient denies history of illicit drug abuse, smoking, and alcohol abuse. The patient is single and has no history of smoking. LABORATORY DATA: Labs dated 05/20/2017 showed WBC 8, hemoglobin 16, and platelets 189,000. Sodium 144, potassium 3.3, BUN 25, and creatinine 1.4. Urinalysis is positive for urinary tract infection. IMAGING STUDIES: CT scan of the abdomen dated 05/20/2017 shows sigmoid wall thickening, positive for thickening of the distal small bowel. ASSESSMENT AND PLAN: 1. Acute on chronic colitis/diverticulitis. 2. Urinary tract infection- positive for gram negative bacilli. 3. History of ovarian cancer, status post completion of chemotherapy and bilateral salpingo-oophorectomy. 4. Chronic pain. 5. Hypokalemia. 6. Hypertension. 7. Gastrointestinal and deep vein thrombosis prophylaxis. PLAN OF CARE: We will consult the Gastrointestinal, Dr. Chavez and Infectious Disease. We will hold on intravenous antibiotics .Given the lack of systematic inflammatory response, I will wait for the Clostridium difficile cultures and ID input. Continue with conservative management. Christos Pandya M.D. DR: FRANTZ JOB#: [id number] CC: [email or web address]
[2017-05-21] MEDS: Morphine Sulfate 2mg/ml Inj IVP PRN (22:23)
[2017-05-22] VITALS: BP 120/60
[2017-05-22] MEDS: metroNIDAZOLE 500mg 100 ML IVPB SCH ×3 (01:26→17:20)
[2017-05-22 04:00] VITALS: BP 123/73
[2017-05-22 07:15] LABS: BASOPHILS % (AUTO) 0.9 % (0.0-2.0); EOSINOPHILS % (AUTO) 7.7 % (0.0-3.0); LYMPHOCYTES % (AUTO) 49.2 % (20.0-45.0); MEAN CORPUSCULAR VOLUME 103 FL (80-99); MEAN PLATELET VOLUME 8.6 FL (6.5-10.1); MONOCYTES % (AUTO) 7.4 % (1.0-10.0); NEUTROPHILS % (AUTO) 34.8 % (45.0-75.0); PLATELET COUNT 123 K/UL (150-450); RED BLOOD COUNT 2.93 M/UL (4.20-5.40); RED CELL DISTRIBUTION WIDTH 11.2 % (11.6-14.8); WHITE BLOOD COUNT 3.7 K/UL (4.8-10.8)
[2017-05-22 07:40] LABS: ALANINE AMINOTRANSFERASE 8 U/L (3-33); ALBUMIN/GLOBULIN RATIO 1.6 (1.0-2.7); ANION GAP 10 (5-15); ASPARTATE AMINO TRANSFERASE 11 U/L (5-40); CARBON DIOXIDE 27 mEQ/L (20-30); CHLORIDE 102 mEQ/L (98-107); CREATININE 0.9 mg/dL (0.5-0.9); GLOMERULAR FILTRATION RATE > 60 mL/min (>60); HEMOLYSIS 4; POTASSIUM 3.2 mEQ/L (3.4-4.9); SODIUM 139 mEQ/L (135-145); TOTAL PROTEIN 5.8 g/dL (6.6-8.7)
[2017-05-22 08:00] VITALS: BP 124/72
[2017-05-22] MEDS: Triamterene/Hctz 37.5/25 cap ORAL SCH (08:32)
[2017-05-22] MEDS: Enoxaparin 40mg Inj SUBQ SCH (08:35)
[2017-05-22] MEDS: Losartan 50mg tab ORAL SCH (09:50)
[2017-05-22] MEDS: D5NS 1,000 ML IV SCH ×2 (09:57→21:43)
[2017-05-22] MEDS: Morphine Sulfate 2mg/ml Inj IVP PRN ×2 (10:02→21:44)
--- NOTE | 2017-05-22 10:40 | GI Progress Note ---
Assessment/Plan Problems: (1) Abdominal pain ICD Codes: R10.9 - Unspecified abdominal pain SNOMED: 25803042 (2) Diverticulitis ICD Codes: K57.92 - Diverticulitis of intestine, part unspecified, without perforation or abscess without bleeding SNOMED: 197991140 (3) Sepsis ICD Codes: A41.9 - Sepsis, unspecified organism SNOMED: 60289536 (4) Common bile duct dilation ICD Codes: K83.8 - Other specified diseases of biliary tract SNOMED: 631580801 Status: stable Status Narrative Discussed with Dr. Chavez. Assessment/Plan CT Abdomen Pelvis w/Contrast reviewed >> Sigmoid wall thickening. Enteritis. MRCP reviewed >> 7 mm polypoid lesion protruding into the duodenal lumen at the level of the ampulla. s/p colonoscopy 2010 with polyps and hemorrhoids per patient EGD scheduled for tomorrow. - diet, NPO @ MD. - hold all blood thinners tonight. defer colonoscopy at this time given recent diverticulitis less than 1 month ago adv to regular diet fu stool studies, cdiff >> will consider Imodium after pain mgmt H2B fu labs recommend colonoscopy x 1 month after dc date Subjective Subjective abdominal pain better Objective Last 24 Hour Vital Signs Date Time Temp Pulse Resp B/P Pulse Ox O2 Delivery O2 Flow Rate FiO2 05/22/17 09:50 124/72 05/22/17 08:00 97.5 51 18 124/72 100 Room Air 05/22/17 04:00 97.5 50 18 123/73 100 Room Air 05/22/17 00:00 97.5 55 18 120/60 100 Room Air 05/21/17 20:00 97.3 53 18 117/79 100 Room Air 05/21/17 16:24 97.5 65 18 125/76 100 Room Air 05/21/17 11:52 98.7 74 19 121/82 99 Room Air Intake and Output 05/21/17 05/22/17 18:59 06:59 Intake Total 825 ml 1220 ml Balance 825 ml 1220 ml Intake Oral 345 ml 200 ml IV Total 480 ml 1020 ml # Voids 1 2 # Bowel Movements 1 Laboratory Tests Test 05/22/17 05:00 White Blood Count 3.7 K/UL (4.8-10.8) L Red Blood Count 2.93 M/UL (4.20-5.40) L Hemoglobin 10.2 G/DL (12.0-16.0) L Hematocrit 30.1 % (37.0-47.0) L Mean Corpuscular Volume 103 FL (80-99) H Mean Corpuscular Hemoglobin 35.0 PG (27.0-31.0) H Mean Corpuscular Hemoglobin Concent 34.0 G/DL (32.0-36.0) Red Cell Distribution Width 11.2 % (11.6-14.8) L Platelet Count 123 K/UL (150-450) L Mean Platelet Volume 8.6 FL (6.5-10.1) Neutrophils (%) (Auto) 34.8 % (45.0-75.0) L Lymphocytes (%) (Auto) 49.2 % (20.0-45.0) H Monocytes (%) (Auto) 7.4 % (1.0-10.0) Eosinophils (%) (Auto) 7.7 % (0.0-3.0) H Basophils (%) (Auto) 0.9 % (0.0-2.0) Sodium Level 139 mEQ/L (135-145) Potassium Level 3.2 mEQ/L (3.4-4.9) L Chloride Level 102 mEQ/L (98-107) Carbon Dioxide Level 27 mEQ/L (20-30) Anion Gap 10 (5-15) Blood Urea Nitrogen 16 mg/dL (7-23) Creatinine 0.9 mg/dL (0.5-0.9) Estimat Glomerular Filtration Rate > 60 mL/min (>60) Glucose Level 89 mg/dL (74-106) Calcium Level 9.0 mg/dL (8.6-10.2) # Total Bilirubin 0.3 mg/dL (0.0-1.2) Aspartate Amino Transf (AST/SGOT) 11 U/L (5-40) Alanine Aminotransferase (ALT/SGPT) 8 U/L (3-33) Alkaline Phosphatase 32 U/L (35-104) L Total Protein 5.8 g/dL (6.6-8.7) L Albumin 3.6 g/dL (3.5-5.2) Globulin 2.2 g/dL Albumin/Globulin Ratio 1.6 (1.0-2.7) Height (Feet): 5 Height (Inches): 4.00 Weight (Pounds): 185 General Appearance: no apparent distress, alert Cardiovascular: normal rate Respiratory/Chest: normal breath sounds, no respiratory distress Abdominal Exam: normal bowel sounds, non tender, soft Extremities: normal range of motion Emily Braxton N.P. May 22, 2017 10:40
[2017-05-22 12:00] VITALS: BP 122/70
--- NOTE | 2017-05-22 15:23 | General Progress Note ---
Assessment/Plan Status: stable Assessment/Plan 1- Collitis/Diverticulitis 2- Ovarian CA survivor 3- HypoKalemia 4- Pelvic pain management 5- HTN 6- Gi-DVT prophylaxia 7- UTI Plan: GI, ID notes are reviewed current conservative management current prophylactic antibiotic will advance diet as tolerated Contact Isolation Subjective ROS Limited/Unobtainable: No Constitutional: Reports: malaise HEENT: Reports: no symptoms Cardiovascular: Reports: no symptoms Gastrointestinal/Abdominal: Reports: diarrhea Allergies: Coded Allergies: ASPIRIN (Verified Allergy, Unknown, 03/27/17) LATEX (Verified Allergy, Unknown, 03/27/17) PINEAPPLE (Verified Allergy, Unknown, 03/27/17) STRAWBERRY (Verified Allergy, Unknown, 03/27/17) Objective Last 24 Hour Vital Signs Date Time Temp Pulse Resp B/P Pulse Ox O2 Delivery O2 Flow Rate FiO2 05/22/17 12:00 97.7 53 19 122/70 98 Room Air 05/22/17 09:50 124/72 05/22/17 08:00 97.5 51 18 124/72 100 Room Air 05/22/17 04:00 97.5 50 18 123/73 100 Room Air 05/22/17 00:00 97.5 55 18 120/60 100 Room Air 05/21/17 20:00 97.3 53 18 117/79 100 Room Air 05/21/17 16:24 97.5 65 18 125/76 100 Room Air Intake and Output 05/21/17 05/22/17 19:00 07:00 Intake Total 825 ml 1220 ml Balance 825 ml 1220 ml Intake Oral 345 ml 200 ml IV Total 480 ml 1020 ml # Voids 1 2 # Bowel Movements 1 Laboratory Tests 05/22/17 05:00: White Blood Count 3.7L, Red Blood Count 2.93L, Hemoglobin 10.2L, Hematocrit 30.1L, Mean Corpuscular Volume 103H, Mean Corpuscular Hemoglobin 35.0H, Mean Corpuscular Hemoglobin Concent 34.0, Red Cell Distribution Width 11.2L, Platelet Count 123L, Mean Platelet Volume 8.6, Neutrophils (%) (Auto) 34.8L, Lymphocytes (%) (Auto) 49.2H, Monocytes (%) (Auto) 7.4, Eosinophils (%) (Auto) 7.7H, Basophils (%) (Auto) 0.9, Sodium Level 139, Potassium Level 3.2L, Chloride Level 102, Carbon Dioxide Level 27, Anion Gap 10, Blood Urea Nitrogen 16, Creatinine 0.9, Estimat Glomerular Filtration Rate > 60, Glucose Level 89, Calcium Level 9.0#, Total Bilirubin 0.3, Aspartate Amino Transf (AST/SGOT) 11, Alanine Aminotransferase (ALT/SGPT) 8, Alkaline Phosphatase 32L, Total Protein 5.8L, Albumin 3.6, Globulin 2.2, Albumin/Globulin Ratio 1.6 Height (Feet): 5 Height (Inches): 4.00 Weight (Pounds): 185 General Appearance: no apparent distress EENT: PERRL/EOMI Neck: supple Cardiovascular: normal rate Respiratory/Chest: lungs clear Abdomen: soft Extremities: non-tender Neurologic: recordist II-XII grossly normal Christos Pandya MD May 22, 2017 15:23
[2017-05-22 16:00] VITALS: BP 120/77
[2017-05-22] MEDS: HYDROmorphone 4mg tab ORAL PRN (17:20)
--- NOTE | 2017-05-22 19:14 | Infectious Diseases Prog Note ---
Assessment/Plan Assessment/Plan ASSESSMENT: 1) Enteritis, possible recurrent diverticulitis. possible viral etiology for enteritis, but given recurrent nature, this is less likely. pending stool cx and C diff, remains on empiric IV flagyl. 2) h/o C diff colitis 3) E coli UTI, uncomplicated, but isolate is resistant to cipro and tmp/smx 4) CBD dilated with normal LFTs and normal lipase 5) no leukocytosis 6) not febrile 7) h/o ovarian CA s/p chemo 02/19 8) Nausea and vomiting 9) Diarrhea, non bloody 10) Dehydration, improving 11) hypercalcemia 13) 7mm polypoid duodenal lesions on abd MRI pending EGD tommorrow (NPO o/n) 14) trace ascites, no h/o chronic liver disease, not enough for diagnostic paracentesis. do not suspect SBP. consistent with a reactive process. PLAN: --follow up stool C diff --follow up stool culture to r/o Salmonella and Shigella --continue IV flagyl D#2 for now, but if C diff negative will plan to d/c --d/c cipro --start ceftriaxone 1gm IV q24hr now, D#1 of 3, plan to switch to amoxicillin 500mg PO TID if she is to be discharged to home shortly after EGD --monitor cbc --monitor bmp Subjective Constitutional: Reports: no symptoms Respiratory: Reports: no symptoms Gastrointestinal/Abdominal: Reports: bloating, nausea, vomiting Genitourinary: Reports: dysuria, frequency Skin: Reports: no symptoms Hematologic: Reports: no symptoms Allergies: Coded Allergies: ASPIRIN (Verified Allergy, Unknown, 03/27/17) LATEX (Verified Allergy, Unknown, 03/27/17) PINEAPPLE (Verified Allergy, Unknown, 03/27/17) STRAWBERRY (Verified Allergy, Unknown, 03/27/17) Objective Vital Signs Last 24 Hour Vital Signs Date Time Temp Pulse Resp B/P Pulse Ox O2 Delivery O2 Flow Rate FiO2 05/22/17 16:00 97.9 64 18 120/77 98 Room Air 05/22/17 12:00 97.7 53 19 122/70 98 Room Air 05/22/17 09:50 124/72 05/22/17 08:00 97.5 51 18 124/72 100 Room Air 05/22/17 04:00 97.5 50 18 123/73 100 Room Air 05/22/17 00:00 97.5 55 18 120/60 100 Room Air 05/21/17 20:00 97.3 53 18 117/79 100 Room Air Height (Feet): 5 Height (Inches): 4.00 Weight (Pounds): 185 Objective GEN: awake, alert, non toxic appearing HEENT: Mild pale conjunctiva. oral mucosa dry, pharynx w/o exudate or effusion. No icterus. Head normocephalic, neck supple. NECK: No cervical LAD CHEST: Clear to auscultation bilaterally. R chest wall mediport c/d/i. HEART: S1 and S2, no murmurs, no rubs. ABDOMEN: scar in the midline from prior abdominal surgeries. Abdomen is soft. Bowel sounds are hypoactive. There is tenderness to palpation in epigastric, right upper quadrant, and left lower quadrant. No rebound. No guarding. No peritoneal sign. EXTREMITIES: No cyanosis, no clubbing, no edema. NEUROLOGIC: Awake, alert, no focal neurologic motor deficits. : no external lesions or rash LYMPH: no axillary LAD RECTAL: deferred Microbiology Date/Time Source Procedure Growth Status 05/20/17 15:03 Nasal Nares MRSA Culture - Final NO METHICILLIN RESISTANT STAPH AUREUS... Complete 05/20/17 13:30 Urine,Clean Catch Urine Culture - Final Escherichia Coli Complete 05/20/17 15:03 Rectum VRE Culture - Final Enterococcus Faecium - Vre Complete Laboratory Tests Test 05/22/17 05:00 White Blood Count 3.7 K/UL (4.8-10.8) L Red Blood Count 2.93 M/UL (4.20-5.40) L Hemoglobin 10.2 G/DL (12.0-16.0) L Hematocrit 30.1 % (37.0-47.0) L Mean Corpuscular Volume 103 FL (80-99) H Mean Corpuscular Hemoglobin 35.0 PG (27.0-31.0) H Mean Corpuscular Hemoglobin Concent 34.0 G/DL (32.0-36.0) Red Cell Distribution Width 11.2 % (11.6-14.8) L Platelet Count 123 K/UL (150-450) L Mean Platelet Volume 8.6 FL (6.5-10.1) Neutrophils (%) (Auto) 34.8 % (45.0-75.0) L Lymphocytes (%) (Auto) 49.2 % (20.0-45.0) H Monocytes (%) (Auto) 7.4 % (1.0-10.0) Eosinophils (%) (Auto) 7.7 % (0.0-3.0) H Basophils (%) (Auto) 0.9 % (0.0-2.0) Sodium Level 139 mEQ/L (135-145) Potassium Level 3.2 mEQ/L (3.4-4.9) L Chloride Level 102 mEQ/L (98-107) Carbon Dioxide Level 27 mEQ/L (20-30) Anion Gap 10 (5-15) Blood Urea Nitrogen 16 mg/dL (7-23) Creatinine 0.9 mg/dL (0.5-0.9) Estimat Glomerular Filtration Rate > 60 mL/min (>60) Glucose Level 89 mg/dL (74-106) Calcium Level 9.0 mg/dL (8.6-10.2) # Total Bilirubin 0.3 mg/dL (0.0-1.2) Aspartate Amino Transf (AST/SGOT) 11 U/L (5-40) Alanine Aminotransferase (ALT/SGPT) 8 U/L (3-33) Alkaline Phosphatase 32 U/L (35-104) L Total Protein 5.8 g/dL (6.6-8.7) L Albumin 3.6 g/dL (3.5-5.2) Globulin 2.2 g/dL Albumin/Globulin Ratio 1.6 (1.0-2.7) Current Medications Medications (Trade) Dose Ordered Sig/Kermit Route PRN Reason Start Time Stop Time Status Last Admin Dose Admin Ciprofloxacin 200 ml @ 200 mls/hr Q12HR IV 05/21/17 21:00 05/28/17 20:59 05/22/17 08:29 Dextrose/Sodium Chloride (D5ns) 1,000 ml @ 80 mls/hr [id number] IV 05/20/17 19:30 06/19/17 19:29 05/22/17 09:57 Enoxaparin Sodium 40 mg 40 mg DAILY SUBQ 05/21/17 09:00 06/20/17 08:59 05/22/17 08:35 Furosemide (Lasix) 20 mg DAILY ORAL 05/21/17 09:00 06/20/17 08:59 Hydromorphone HCl (Dilaudid) 4 mg Q4H PRN ORAL BREAKTHROUGH PAIN 05/20/17 19:30 05/27/17 19:29 05/22/17 17:20 Losartan Potassium (Cozaar) 50 mg DAILY ORAL 05/21/17 09:00 06/20/17 08:59 05/22/17 09:50 Metronidazole (Flagyl) 100 ml @ 100 mls/hr Q8H IVPB 05/21/17 18:00 05/28/17 17:59 05/22/17 17:20 Morphine Sulfate (Morphine Sulfate) 2 mg Q8H PRN IVP For Pain 05/21/17 18:15 05/28/17 18:14 05/22/17 10:02 Ondansetron HCl (Zofran) 8 mg Q6H PRN IVP Nausea & Vomiting 05/20/17 19:30 06/19/17 19:29 05/22/17 17:20 Pantoprazole (Protonix) 40 mg DAILY ORAL 05/22/17 09:00 06/21/17 08:59 05/22/17 08:32 Ranitidine HCl 150 mg 150 mg BEDTIME ORAL 05/21/17 21:00 06/20/17 20:59 Triamterene/HCTZ (Dyazide) 1 cap DAILY ORAL 05/21/17 09:00 06/20/17 08:59 05/22/17 08:32 Eder Payne M.D. May 22, 2017 19:14
[2017-05-22 20:57] VITALS: BP 144/92
[2017-05-22] MEDS ORDERED: cefTRIAXone 1 GM in D5W 55 ML IVPB SCH (21:00)
[2017-05-23] VITALS (9 sets, daily range): BP systolic 115–152; BP diastolic 63–82
[2017-05-23] MEDS: metroNIDAZOLE 500mg 100 ML IVPB SCH ×2 (01:50→10:28)
--- NOTE | 2017-05-23 06:36 | Anethesia Preoperative Eval ---
Anesthesia Pre-op PMH/ROS General Date of Evaluation: May 23, 2017 Time of Evaluation: 06:36 Anesthesiologist: darin ASA Score: ASA 3 Mallampati Score Class I : Soft palate, uvula, fauces, pillars visible Class II: Soft palate, uvula, fauces visible Class III: Soft palate, base of uvula visible Class IV: Only hard plate visible Mallampati Classification: Class II Surgeon: kaley Diagnosis: abdominal pain Surgical Procedure: egd Social History: smoking Family History: no anesthesia problems Allergies: Coded Allergies: ASPIRIN (Verified Allergy, Unknown, 03/27/17) LATEX (Verified Allergy, Unknown, 03/27/17) PINEAPPLE (Verified Allergy, Unknown, 03/27/17) STRAWBERRY (Verified Allergy, Unknown, 03/27/17) Medications: see eMAR Past Medical History Cardiovascular: Reports: HTN Endocrine: Reports: DM Hematology/Immune: Reports: other - cancer Other: obesity Anesthesia Pre-op Phys. Exam Physician Exam Last Vital Signs Date Time Temp Pulse Resp B/P Pulse Ox O2 Delivery O2 Flow Rate FiO2 05/23/17 04:32 97.8 51 20 115/77 Room Air 05/23/17 00:23 100 Constitutional: NAD Neurologic: CN 2-12 intact Cardiovascular: RRR Respiratory: CTA Gastrointestinal: S/NT/ND Airway Exam Mallampati Score: Class II MO: full Neck: supple TMD: 2fb ROM: limited Teeth: intact Anesthesia Pre-op A/P Risk Assessment & Plan Assessment: asa3 Plan: mac Status Change Before Surgery: No Pre-Antibiotics Drug: JAYANT Morales May 23, 2017 06:36
[2017-05-23 07:24] LABS: BASOPHILS % (AUTO) 0.7 % (0.0-2.0); EOSINOPHILS % (AUTO) 5.5 % (0.0-3.0); LYMPHOCYTES % (AUTO) 34.5 % (20.0-45.0); MEAN CORPUSCULAR HEMOGLOBIN 35.3 PG (27.0-31.0); MEAN CORPUSCULAR HGB CONC 34.3 G/DL (32.0-36.0); MEAN CORPUSCULAR VOLUME 103 FL (80-99); MEAN PLATELET VOLUME 8.2 FL (6.5-10.1); MONOCYTES % (AUTO) 6.2 % (1.0-10.0); NEUTROPHILS % (AUTO) 53.1 % (45.0-75.0); PLATELET COUNT 129 K/UL (150-450); RED CELL DISTRIBUTION WIDTH 11.2 % (11.6-14.8); WHITE BLOOD COUNT 4.5 K/UL (4.8-10.8)
[2017-05-23 07:26] LABS: PROTHROMBIN TIME 10.6 SEC (9.30-11.50)
[2017-05-23 07:46] LABS: ALANINE AMINOTRANSFERASE 9 U/L (3-33); ALBUMIN/GLOBULIN RATIO 1.5 (1.0-2.7); ANION GAP 8 (5-15); ASPARTATE AMINO TRANSFERASE 12 U/L (5-40); CALCIUM 9.1 mg/dL (8.6-10.2); CARBON DIOXIDE 29 mEQ/L (20-30); CHLORIDE 104 mEQ/L (98-107); CREATININE 1.2 mg/dL (0.5-0.9); HEMOLYSIS 6; POTASSIUM 3.9 mEQ/L (3.4-4.9); SODIUM 141 mEQ/L (135-145); TOTAL PROTEIN 7.1 g/dL (6.6-8.7)
[2017-05-23] MEDS: Losartan 50mg tab ORAL SCH ×2 (09:00→13:03)
[2017-05-23] MEDS: Enoxaparin 40mg Inj SUBQ SCH (09:00)
[2017-05-23] MEDS: Triamterene/Hctz 37.5/25 cap ORAL SCH ×2 (09:00→13:01)
[2017-05-23] MEDS: D5NS 1,000 ML IV SCH (10:28)
[2017-05-23] MEDS ORDERED: Propofol 10mg/ml 20ml IV ONE (11:00)
[2017-05-23] MEDS ORDERED: NS 110ml ONE (11:00)
[2017-05-23] MEDS ORDERED: Lidocaine 1% MPF 10mg/ml 5ml ONE (11:00)
[2017-05-23] MEDS ORDERED: NS 550ML IV ONE (11:15)
--- NOTE | 2017-05-23 11:21 | Pre-Procedure Note/Attestation ---
Pre-Procedure Note/Attestation Complete Prior to Procedure Planned Procedure: not applicable Procedure Narrative: egd Indications for Procedure Pre-Operative Diagnosis: gerd, abd pain Attestation I attest that I discussed the nature of the procedure; its benefits; risks and complications; and alternatives (and the risks and benefits of such alternatives ), prior to the procedure, with the patient (or the patient's legal outreach representative). I attest that, if there was a reasonable possibility of needing a blood transfusion, the patient (or the patient's legal outreach representative) was given the [facility] standardized written summary, pursuant to the [place] P[place] Blood Safety Act ([place] Health and Safety Code # 1645, as amended). I attest that I re-evaluated the patient just prior to the surgery and that there has been no change in the patient's H&P, except as documented below: DESTINY BILL May 23, 2017 11:21
--- NOTE | 2017-05-23 11:38 | Endoscopy Procedure Note ---
Endoscopy Procedure Note Indication for Procedure: duodenal mass Procedures Performed: EGD Operative Findings/Diagnosis: gastritis Specimen: yes Pt Tolerated Procedure Well: Yes Estimated Blood Loss: none Anesthesiologist: darin Anesthesia: MAC Implant(s) used?: No 50 yrs or older w/o bx or poly: Not Applicable 10yrs. F/U not recommended: Not Applicable DESTINY BILL May 23, 2017 11:38
[2017-05-23] MEDS ORDERED: Hydromorphone 0.5mg/0.5ml inj IVP PRN (12:00)
[2017-05-23] MEDS ORDERED: fentaNYL 100 mcg/2 mL IV PRN (12:00)
[2017-05-23] MEDS ORDERED: Midazolam 2mg/2ml Inj IVP PRN (12:00)
--- NOTE | 2017-05-23 12:41 | General Progress Note ---
Assessment/Plan Status: stable Assessment/Plan 1- Collitis/Diverticulitis 2- Ovarian CA survivor 3- HypoKalemia 4- Pelvic pain management 5- HTN 6- Gi-DVT prophylaxia 7- UTI 8- General weakness/deconditioning Plan: GI, ID notes are reviewed current conservative management current prophylactic antibiotic will advance diet as tolerated post EGD anx bx Ok to go home with [facility] for home PT/Deconditioning Subjective ROS Limited/Unobtainable: No Constitutional: Reports: malaise HEENT: Reports: no symptoms Cardiovascular: Reports: no symptoms Respiratory: Reports: no symptoms Gastrointestinal/Abdominal: Reports: no symptoms Allergies: Coded Allergies: ASPIRIN (Verified Allergy, Unknown, 03/27/17) LATEX (Verified Allergy, Unknown, 03/27/17) PINEAPPLE (Verified Allergy, Unknown, 03/27/17) STRAWBERRY (Verified Allergy, Unknown, 03/27/17) Objective Last 24 Hour Vital Signs Date Time Temp Pulse Resp B/P Pulse Ox O2 Delivery O2 Flow Rate FiO2 05/23/17 12:06 97.6 45 20 150/74 96 Room Air 05/23/17 12:00 97.6 45 20 149/78 96 Room Air 05/23/17 11:51 45 20 152/77 96 Nasal Cannula 2.0 05/23/17 11:46 44 20 145/80 99 Nasal Cannula 2.0 05/23/17 11:41 97.6 44 20 141/82 99 Nasal Cannula 2.0 05/23/17 09:00 130/73 05/23/17 08:00 97.3 54 20 130/73 100 Room Air 05/23/17 04:32 97.8 51 20 115/77 Room Air 05/23/17 00:23 97.0 54 20 115/63 100 Room Air 05/22/17 22:14 97.7 05/22/17 20:57 97.7 100 20 144/92 Room Air 05/22/17 16:00 97.9 64 18 120/77 98 Room Air Intake and Output 05/22/17 05/23/17 19:00 07:00 Intake Total 1880 ml 1220 ml Balance 1880 ml 1220 ml Intake Oral 1000 ml 240 ml IV Total 880 ml 980 ml # Voids 4 5 # Bowel Movements 3 Laboratory Tests 05/23/17 05:55: White Blood Count 4.5L, Red Blood Count 3.10L, Hemoglobin 11.0L, Hematocrit 31.9L, Mean Corpuscular Volume 103H, Mean Corpuscular Hemoglobin 35.3H, Mean Corpuscular Hemoglobin Concent 34.3, Red Cell Distribution Width 11.2L, Platelet Count 129L, Mean Platelet Volume 8.2, Neutrophils (%) (Auto) 53.1, Lymphocytes (%) (Auto) 34.5, Monocytes (%) (Auto) 6.2, Eosinophils (%) (Auto) 5.5H, Basophils (%) (Auto) 0.7, Prothrombin Time 10.6, Prothromb Time International Ratio 1.0, Activated Partial Thromboplast Time 26, Sodium Level 141, Potassium Level 3.9, Chloride Level 104, Carbon Dioxide Level 29, Anion Gap 8, Blood Urea Nitrogen 12, Creatinine 1.2H, Estimat Glomerular Filtration Rate 56.0, Glucose Level 98, Calcium Level 9.1, Total Bilirubin < 0.2, Aspartate Amino Transf (AST/SGOT) 12, Alanine Aminotransferase (ALT/SGPT) 9, Alkaline Phosphatase 36, Total Protein 7.1, Albumin 4.3, Globulin 2.8, Albumin/ Globulin Ratio 1.5 Height (Feet): 5 Height (Inches): 4.00 Weight (Pounds): 197 General Appearance: no apparent distress EENT: PERRL/EOMI Neck: supple Cardiovascular: normal rate Respiratory/Chest: lungs clear Abdomen: soft, distended Extremities: non-tender, other 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
[2017-05-23] MEDS: Morphine Sulfate 2mg/ml Inj IVP PRN (13:15)
[2017-05-23] MEDS ORDERED: Tubing IV Secondary IV ONE (14:47)
[2017-05-23] MEDS ORDERED: D5NS 1000ml IV ONE (14:47)
--- NOTE | 2017-05-23 15:00 | Infectious Diseases Prog Note ---
Assessment/Plan Assessment/Plan ASSESSMENT: 1) Enteritis, possible recurrent diverticulitis. possible viral etiology for enteritis, with stool studies negative for C diff and negative for Salmonella/ Shigella. 2) h/o C diff colitis. no active issue. 3) E coli UTI, uncomplicated, but isolate is resistant to cipro and tmp/smx 4) CBD dilated with normal LFTs and normal lipase 5) no leukocytosis 6) not febrile 7) h/o ovarian CA s/p chemo 02/19 8) Nausea and vomiting 9) Diarrhea, non bloody 10) Dehydration, improving 11) hypercalcemia 13) 7mm polypoid duodenal lesions on abd MRI pending EGD tommorrow (NPO o/n) 14) trace ascites, no h/o chronic liver disease, not enough for diagnostic paracentesis. do not suspect SBP. consistent with a reactive process. PLAN: --d/c flagyl s/p D# empiric therapy --On ceftriaxone 1gm IV q24hr now, D#2 of 3, , but planning to d/c to home so switch to amoxicillin 500mg PO TID to complete 3 day course at [facility]. --stable for discharge from ID perspective. Subjective Constitutional: Reports: no symptoms Gastrointestinal/Abdominal: Reports: diarrhea, nausea Skin: Reports: no symptoms Hematologic: Reports: no symptoms Musculoskeletal: Reports: no symptoms Allergies: Coded Allergies: ASPIRIN (Verified Allergy, Unknown, 03/27/17) LATEX (Verified Allergy, Unknown, 03/27/17) PINEAPPLE (Verified Allergy, Unknown, 03/27/17) STRAWBERRY (Verified Allergy, Unknown, 03/27/17) Objective Vital Signs Last 24 Hour Vital Signs Date Time Temp Pulse Resp B/P Pulse Ox O2 Delivery O2 Flow Rate FiO2 05/23/17 13:03 150/74 05/23/17 12:06 97.6 45 20 150/74 96 Room Air 05/23/17 12:00 97.6 45 20 149/78 96 Room Air 05/23/17 11:51 45 20 152/77 96 Nasal Cannula 2.0 05/23/17 11:46 44 20 145/80 99 Nasal Cannula 2.0 05/23/17 11:41 97.6 44 20 141/82 99 Nasal Cannula 2.0 05/23/17 09:00 130/73 05/23/17 08:00 97.3 54 20 130/73 100 Room Air 05/23/17 04:32 97.8 51 20 115/77 Room Air 05/23/17 00:23 97.0 54 20 115/63 100 Room Air 05/22/17 22:14 97.7 05/22/17 20:57 97.7 100 20 144/92 Room Air 05/22/17 16:00 97.9 64 18 120/77 98 Room Air Height (Feet): 5 Height (Inches): 4.00 Weight (Pounds): 197 Objective GEN: awake, alert, non toxic appearing HEENT: Mild pale conjunctiva. oral mucosa dry, pharynx w/o exudate or effusion. No icterus. Head normocephalic, neck supple. NECK: No cervical LAD CHEST: Clear to auscultation bilaterally. R chest wall mediport c/d/i. HEART: S1 and S2, no murmurs, no rubs. ABDOMEN: scar in the midline from prior abdominal surgeries. Abdomen is soft. Bowel sounds are hypoactive. There is tenderness to palpation in epigastric, right upper quadrant, and left lower quadrant. No rebound. No guarding. No peritoneal sign. EXTREMITIES: No cyanosis, no clubbing, no edema. NEUROLOGIC: Awake, alert, no focal neurologic motor deficits. : no external lesions or rash LYMPH: no axillary LAD RECTAL: deferred Microbiology Date/Time Source Procedure Growth Status 05/20/17 15:03 Nasal Nares MRSA Culture - Final NO METHICILLIN RESISTANT STAPH AUREUS... Complete 05/22/17 19:00 Stool Stool Culture - Preliminary NORMAL FECAL KETURAH. Resulted 05/22/17 19:00 Stool Clostridium difficile Toxin Assay - Final Complete 05/20/17 15:03 Rectum VRE Culture - Final Enterococcus Faecium - Vre Complete Laboratory Tests Test 05/23/17 05:55 White Blood Count 4.5 K/UL (4.8-10.8) L Red Blood Count 3.10 M/UL (4.20-5.40) L Hemoglobin 11.0 G/DL (12.0-16.0) L Hematocrit 31.9 % (37.0-47.0) L Mean Corpuscular Volume 103 FL (80-99) H Mean Corpuscular Hemoglobin 35.3 PG (27.0-31.0) H Mean Corpuscular Hemoglobin Concent 34.3 G/DL (32.0-36.0) Red Cell Distribution Width 11.2 % (11.6-14.8) L Platelet Count 129 K/UL (150-450) L Mean Platelet Volume 8.2 FL (6.5-10.1) Neutrophils (%) (Auto) 53.1 % (45.0-75.0) Lymphocytes (%) (Auto) 34.5 % (20.0-45.0) Monocytes (%) (Auto) 6.2 % (1.0-10.0) Eosinophils (%) (Auto) 5.5 % (0.0-3.0) H Basophils (%) (Auto) 0.7 % (0.0-2.0) Prothrombin Time 10.6 SEC (9.30-11.50) Prothromb Time International Ratio 1.0 (0.9-1.1) Activated Partial Thromboplast Time 26 SEC (23-33) Sodium Level 141 mEQ/L (135-145) Potassium Level 3.9 mEQ/L (3.4-4.9) Chloride Level 104 mEQ/L (98-107) Carbon Dioxide Level 29 mEQ/L (20-30) Anion Gap 8 (5-15) Blood Urea Nitrogen 12 mg/dL (7-23) Creatinine 1.2 mg/dL (0.5-0.9) H Estimat Glomerular Filtration Rate 56.0 mL/min (>60) Glucose Level 98 mg/dL (74-106) Calcium Level 9.1 mg/dL (8.6-10.2) Total Bilirubin < 0.2 mg/dL (0.0-1.2) Aspartate Amino Transf (AST/SGOT) 12 U/L (5-40) Alanine Aminotransferase (ALT/SGPT) 9 U/L (3-33) Alkaline Phosphatase 36 U/L (35-104) Total Protein 7.1 g/dL (6.6-8.7) Albumin 4.3 g/dL (3.5-5.2) Globulin 2.8 g/dL Albumin/Globulin Ratio 1.5 (1.0-2.7) Current Medications Medications (Trade) Dose Ordered Sig/Kermit Route PRN Reason Start Time Stop Time Status Last Admin Dose Admin Ceftriaxone Sodium 1 gm/ Dextrose 55 ml @ 110 mls/hr Q24H IVPB 05/22/17 21:00 05/25/17 20:59 05/22/17 21:44 Dextrose/Sodium Chloride (D5ns) 1,000 ml @ 80 mls/hr [id number] IV 05/20/17 19:30 06/19/17 19:29 05/23/17 10:28 Enoxaparin Sodium 40 mg 40 mg DAILY SUBQ 05/21/17 09:00 06/20/17 08:59 05/22/17 08:35 Fentanyl Citrate (Sublimaze 100 mcg/2 mL) 25 mcg Q10M PRN IV Moderate Pain (Pain Scale 4-6) 05/23/17 12:00 05/23/17 17:00 Furosemide (Lasix) 20 mg DAILY ORAL 05/21/17 09:00 06/20/17 08:59 05/23/17 13:02 Hydromorphone HCl (Dilaudid) 0.5 mg Q15M PRN IVP Severe Pain (Pain Scale 7-10) 05/23/17 12:00 05/23/17 17:00 Hydromorphone HCl (Dilaudid) 4 mg Q4H PRN ORAL BREAKTHROUGH PAIN 05/20/17 19:30 05/27/17 19:29 05/22/17 17:20 Losartan Potassium (Cozaar) 50 mg DAILY ORAL 05/21/17 09:00 06/20/17 08:59 05/23/17 13:03 Metronidazole (Flagyl) 100 ml @ 100 mls/hr Q8H IVPB 05/21/17 18:00 05/28/17 17:59 05/23/17 10:28 Midazolam HCl (Versed 2mg/2ml vial) 1 mg Q15M PRN IVP For Anxiety 05/23/17 12:00 05/23/17 17:00 Morphine Sulfate 2 mg 2 mg Q8H PRN IVP For Pain 05/21/17 18:15 05/28/17 18:14 05/23/17 13:15 Ondansetron HCl (Zofran) 4 mg Q1H PRN IVP Nausea & Vomiting 05/23/17 12:00 05/23/17 17:00 Ondansetron HCl (Zofran) 8 mg Q6H PRN IVP Nausea & Vomiting 05/20/17 19:30 06/19/17 19:29 05/23/17 13:16 Pantoprazole (Protonix) 40 mg DAILY ORAL 05/22/17 09:00 06/21/17 08:59 05/23/17 13:03 Ranitidine HCl 150 mg 150 mg BEDTIME ORAL 05/21/17 21:00 06/20/17 20:59 Sodium Chloride (Sodium Chloride 1000ml bag) 1,000 ml @ 10 mls/hr Q24H IVLG 05/23/17 11:53 05/23/17 17:00 Triamterene/HCTZ (Dyazide) 1 cap DAILY ORAL 05/21/17 09:00 06/20/17 08:59 05/23/17 13:01 Eder Payne M.D. May 23, 2017 15:00
[2017-05-23] MEDS ORDERED: Heplock Flush 100 units/ml 3 ml syr INJ ONE ×2 (15:30→16:00)
[2017-05-23] MEDS ORDERED: Heplock Flush 100 units/ml 3 ml syr INJ SCH ×2 (22:00)
--- NOTE | 2017-05-24 02:00 | Procedure Note ---
DATE OF PROCEDURE: 05/23/2017 SURGEON: Marcus Chavez M.D. PROCEDURE: Endoscopy. ANESTHESIOLOGIST: Maricel Nair M.D. INSTRUMENT: Olympus adult flexible upper endoscope. INDICATION: Duodenal mass. REASON FOR PROCEDURE: The procedure, risks, benefits, and possible consequences, including hemorrhage, aspiration, perforation and infection, and alternative treatments, were explained to the patient/legal guardian by Dr. Marcus Chavez and the patient/legal guardian understood and accepted these risks. PROCEDURE: After informed consent was obtained and the patient was adequately sedated, Olympus upper endoscope was advanced from the mouth into the second portion of the duodenum and retroflexion was performed in the stomach. The patient had some bile reflux in the stomach, there was actually mediocre amount of bile in the stomach was aspirated. There was some bile induced gastritis and gastropathy. Random biopsy from antrum was obtained. Then, the scope was advanced into duodenum and second portion of duodenum. Ampulla was seen, of course, not completely given using forward view camera, but there was no obvious mass seen at the ampulla site. The patient tolerated the procedure well without any complication. SUMMARY FINDINGS: Possible bile induced gastritis/gastropathy, status post biopsy, otherwise normal upper endoscopic examination. RECOMMENDATIONS: Follow up biopsies and treat accordingly. I want to thank, Dr. Pandya, for this kind referral. Marcus Chavez M.D. DR: JONES JOB#: [id number] CC: Christos Pnadya M.D.; Fax#: [phone]
[2017-05-26] MEDS ORDERED: AMOXICILLIN500 M1 PO (11:44)
--- NOTE | 2017-05-26 11:53 | Discharge Summary ---
Discharge Summary Hospital Course Date of Admission May 20, 2017 at 14:03 Date of Discharge May 23, 2017 at 18:00 Admitting Diagnosis ABDOMINAL PAIN, DIVERTICULITIS HPI Kim Gallagher is a 57 year old female who was admitted on May 20, 2017 at 14: 03 for Abdominal Pain,Diverticulitis Hospital Course dc summary #[id number] Discharge Medications New Medications: Amoxicillin (Amoxicillin) 500 Mg Tablet 500 MG PO TID, #9 TAB Continued Medications: Albuterol Sulfate (Ventolin Hfa) 18 Gm Hfa.aer.ad 2 PUFFS INH FOUR TIMES A DAY PRN for Shortness of Breath, #18 GM 0 Refills Dexlansoprazole (Dexilant) 60 Mg Cap.bp 60 MG ORAL DAILY, CAP Docusate Sodium* (Colace*) 100 Mg Capsule 100 MG ORAL TWICE A DAY, CAP Fluticasone/Vilanterol (Breo Ellipta 100-25 Mcg INH) 1 Each Blst.w.dev 1 EACH IH DAILY, EACH Furosemide* (Lasix*) 20 Mg Tablet 20 MG ORAL DAILY, TAB Hydromorphone Hcl (Dilaudid) 8 Mg Tablet 4 MG PO Q6HR PRN for Breakthrough Pain, TAB Loperamide HCl (Imodium A-D) 2 Mg Capsule 2 MG PO FOUR TIMES A DAY PRN for Diarrhea, CAP Losartan Potassium* (Losartan Potassium*) 50 Mg Tablet 50 MG ORAL DAILY, TAB Losartan Potassium* (Cozaar*) 50 Mg Tablet 50 MG ORAL DAILY, TAB Morphine HCl (Morphine Sulfate ER) 15 Mg Tablet.er 15 MG ORAL Q8HR, TAB Ondansetron Hcl* (Zofran*) 8 Mg Tablet 8 MG ORAL Q8HR PRN for Nausea & Vomiting, #4 TAB 0 Refills Pantoprazole* (Protonix*) 40 Mg Tablet.dr 40 MG ORAL DAILY, TAB Potassium Chloride (Klor-Con) 20 Meq Packet 20 MEQ ORAL DAILY, #30 PKT 0 Refills Prochlorperazine Maleate* (Compazine*) 5 Mg Tablet 10 MG ORAL Q8HR PRN for Nausea & Vomiting, TAB 0 Refills Triamterene/Hctz (Triamterene-Hctz 37.5-25 mg Cp) 1 Each Capsule 1 CAP ORAL DAILY, #10 CAP 0 Refills Discontinued Medications: Ciprofloxacin* (Cipro*) 500 Mg Tablet 500 MG PO BID for 5 Days, #10 TAB Ciprofloxacin* (Cipro*) 500 Mg Tablet 500 MG PO BID for 5 Days, #10 TAB Ciprofloxacin* (Cipro*) 500 Mg Tablet 500 MG PO BID for 5 Days, #10 TAB Ciprofloxacin* (Cipro*) 500 Mg Tablet 500 MG PO BID for 5 Days, #10 TAB Metronidazole* (Flagyl*) 500 Mg Tablet 500 MG ORAL EVERY 8 HOURS for 5 Days, #15 TAB Triamterene/Hydrochlorothiazid (Maxzide 37.5 Mg-25 Mg Tablet) 1 Each Tablet 1 EACH PO DAILY, TAB Discharge Condition Upon Discharge: stable Discharge Disposition Patient was discharged to Home with Home Health(06) Discharge Diagnoses: Discharge Instructions Discharge Instructions Special Instructions I have been assigned to complete a D/C Summary on this account. I was not involved in the patient management Jossy Timmons NP (Vanchtein) May 26, 2017 11:53
--- NOTE | 2017-05-26 12:45 | Discharge Summary 2 SIG ---
DATE OF ADMISSION: 05/20/2017 DATE OF DISCHARGE: 05/23/2017 The patient is admitted under Dr. Pandya REASON FOR ADMISSION: This is a 57-year-old female with a history of hypertension, diabetes, and ovarian cancer, presented with recurrent abdominal pain and diarrhea for the last three days. The patient was recently hospitalized for diverticulitis. According to the patient, she completed the course of antibiotics. Pain resolved at that time, but came back in the last three days. The patient reported subjective fever, chills, diarrhea described as watery and nonbloody, and vomiting nonbloody. The patient was afebrile and normotensive. No leukocytosis. Evidence of slight dehydration with BUN of 25 and creatinine of 1.4. LFT was stable. Lipase was stable. The patient was admitted for further management. CT of the abdomen and pelvis upon admission revealed sigmoid wall thickening, similar to the previous exam. Acute colitis versus diverticulitis are possibility. Suspect muscle hypertrophy related to diverticulosis. Thick wall distal small bowel consistent with enteritis, evidence of prior cholecystectomy, dilated common bile duct without definite downstream obstructive process. Most likely on the basis of postcholecystectomy state, however, downstream obstruction was not completely excluded. The patient was admitted for further management. ADMITTING DIAGNOSES: 1. Acute on chronic/recurrent diverticulitis. 2. Enteritis. 3. Common bile duct dilatation. 4. Urinary tract infection. Of note, UA was consistent with urinary tract infection. 5. Hypokalemia, potassium 3.3. 6. Chronic pain. 7. Ovarian cancer, status post bilateral salpingo-oophorectomy and chemotherapy. 8. Hypertension. HOSPITAL STAY: The patient admitted. GI consult and ID consult were requested. The patient started on empiric antibiotics. The patient started on empiric Flagyl as well to cover possible C. diff. Stool for C. difficile was negative. Stool culture was negative for Salmonella, Shigella or Campylobacter. Urine culture revealed E. coli. Antibiotic regimen optimized and upon discharge, the patient was discharged on oral amoxicillin for additional three days to complete course of antibiotics. Potassium replaced and was stable. GI closely followed the patient due to the common bile dilatation. Subsequently, the patient undergone MRI of the abdomen, which revealed extrahepatic and mild intrahepatic biliary ductal dilatation. Suspecting on the basis of age and post cholecystectomy state. However, noted 7 mm polypoid lesion protruding into duodenal lumen recommended for the endoscopy. Subsequently, the patient undergone EGD on 05/23/2017 with finding of possible bile induced gastritis versus gastropathy status post biopsy. Biopsy still pending. Per GI, no evidence of duodenal mass. A follow up with the result of biopsy and treat accordingly. Potassium was replaced and was stable. Blood pressure was managed with current medication and was stable. DVT and GI prophylaxis provided. The patient was working with physical and occupational therapy. Per PMD, the patient would benefit from home health services for rehabilitation due to deconditioning. The patient was stable for discharge. DISCHARGE DIAGNOSES: 1. Acute on chronic colitis/diverticulitis. 2. Enteritis. 3. Common bile duct dilatation. 4. Hypokalemia, resolved. 5. Urinary tract infection with Escherichia coli. 6. Chronic pain. 7. Ovarian cancer survivor, status post bilateral salpingo-oophorectomy and chemotherapy. 8. Hypertension. 9. Gastritis versus gastropathy bile induced. DISCHARGE MEDICATIONS: See medication reconciliation list. DISCHARGE INSTRUCTIONS: The patient discharged home with home health services for deconditioning. Of note per GI recommendation, colonoscopy was deferred at this time. Given history of recent diverticulitis. The patient was advanced to diet, able to tolerate. Pain management provided. H2 blockers provided. The patient was recommended to have colonoscopy one month after discharge day. Christos Pandya M.D. I have been assigned to dictate discharge summary on this account and I was not involved in the patient's management. Jossy Timmons (vanchtein) NSoniaPSonia ROYAL: MADDIE JOB#: [id number] CC:
== END 2017-05-23 18:00 | disposition home health service (06) | DRG 392 ==
LOC: EMR 12:53 → 4W 14:03 → EDBEDREQ 14:42 → 4W 18:58
PROC: 0DB78ZX Excision of Stomach, Pylorus, Via Natural or Artificial Opening Endoscopic, Diagnostic (ICD-10-PCS; principal; 2017-05-23 11:25)
DX: K57.92 Diverticulitis of intestine, part unspecified, without perforation or abscess without bleeding (principal); N39.0 Urinary tract infection, site not specified; I10 Essential (primary) hypertension; K83.8 Other specified diseases of biliary tract; B96.20 Unspecified Escherichia coli [E. coli] as the cause of diseases classified elsewhere; E11.9 Type 2 diabetes mellitus without complications; K29.70 Gastritis, unspecified, without bleeding; E87.6 Hypokalemia; Z85.43 Personal history of malignant neoplasm of ovary; Z92.21 Personal history of antineoplastic chemotherapy; E86.0 Dehydration; Z88.6 Allergy status to analgesic agent; G89.29 Other chronic pain; K52.9 Noninfective gastroenteritis and colitis, unspecified; Z90.722 Acquired absence of ovaries, bilateral; K31.9 Disease of stomach and duodenum, unspecified
CPT/HCPCS: 36415; 74177; 74181; 80053; 81003; 83690; 85025; 85610; 85730; 87045; 87081; 87086; 87181; 87324; 93005; 94003; 94150; J2405; J8499

== ENCOUNTER 2017-08-10 20:42 | Inpatient (IN) | payer MEDICARE, OTHER ==
[~2017-08-10] VITALS: Ht 162.6 cm; Wt 90.7 kg
[~2017-08-10 20:42] MED LIST changes: +AMOXICILLIN500 M1 PO
[2017-08-10] MEDS ORDERED: DiphenhydrAMINE 50mg/ml Inj IVP ONE (21:00)
[2017-08-10] MEDS ORDERED: HYDROmorphone 1mg/ml Carpuject IVP ONE (21:00)
[2017-08-10] MEDS ORDERED: Metoclopramide 10mg/2ml Inj IVP ONE (21:00)
[2017-08-10 21:20] VITALS: BP 122/88
[2017-08-10 21:34] LABS: BASOPHILS % (AUTO) 0.4 % (0.0-2.0); EOSINOPHILS % (AUTO) 0.3 % (0.0-3.0); HEMATOCRIT 42.6 % (37.0-47.0); HEMOGLOBIN 13.9 G/DL (12.0-16.0); LYMPHOCYTES % (AUTO) 12.6 % (20.0-45.0); MEAN CORPUSCULAR VOLUME 96 FL (80-99); MONOCYTES % (AUTO) 4.1 % (1.0-10.0); NEUTROPHILS % (AUTO) 82.6 % (45.0-75.0); PLATELET COUNT 326 K/UL (150-450); RED BLOOD COUNT 4.44 M/UL (4.20-5.40); RED CELL DISTRIBUTION WIDTH 11.8 % (11.6-14.8); WHITE BLOOD COUNT 8.9 K/UL (4.8-10.8)
[2017-08-10 22:14] LABS: ALANINE AMINOTRANSFERASE 20 U/L (12-78); ALBUMIN 3.7 G/DL (3.4-5.0); ALBUMIN/GLOBULIN RATIO 0.8 (1.0-2.7); ALKALINE PHOSPHATASE 60 U/L (46-116); ANION GAP 12 mmol/L (5-15); ASPARTATE AMINO TRANSFERASE 20 U/L (15-37); BILIRUBIN,TOTAL 0.4 MG/DL (0.2-1.0); BLOOD UREA NITROGEN 17 mg/dL (7-18); CARBON DIOXIDE 26 MMOL/L (21-32); CHLORIDE 100 MMOL/L (98-107); CREATININE 1.5 MG/DL (0.55-1.30); SODIUM 138 MMOL/L (136-145)
--- NOTE | 2017-08-10 22:21 | Emergency Room Report ---
History of Present Illness General Chief Complaint: Abdominal Pain Source: Patient Present Illness HPI The patient presents with abdominal pain and vomiting. Today she actually had diarrhea. There is also some blood streaked in it. She vomiting blood. She's having difficulty keeping down any medications at this time. His abdominal pain is epigastric and not radiating - severe 10/10, burning, aching and crampy . She was admitted in May of her diverticulitis. Has had a UTI at that time. She does complain of dysuria - no hematuria. The patient is a history of ovarian carcinoma post chemotherapy early this year. Her levels have increased from 5 into the 200s recently. She is depressed about this. Discharge diagnoses May 23 were: 1. Acute on chronic colitis/diverticulitis. 2. Enteritis. 3. Common bile duct dilatation. 4. Hypokalemia, resolved. 5. Urinary tract infection with Escherichia coli. 6. Chronic pain. 7. Ovarian cancer survivor, status post bilateral salpingo-oophorectomy and chemotherapy. 8. Hypertension. 9. Gastritis versus gastropathy bile induced. CT performed at admission 05/21: Impression: Sigmoid wall thickening. This appears somewhat similar to the previous exam.. Suspect on the basis of muscle hypertrophy related to the diverticulosis.However , acute colitis or, less likely, diverticulitis are also possibilities Thickwalled distal small bowel, similar findings also evident previously. Findings are consistent with enteritis, otherwise nonspecific as regards etiology Trace free intraperitoneal fluid, also previously demonstrated, most probably similar in extent. Etiology uncertain Evidence of prior cholecystectomy. Dilated common bile duct, without definite downstream obstructive process. Most likely on the basis of age and postcholecystectomy state, particularly as this is stable from the previous exam. However, downstream obstruction not completely excludable, and correlation with liver function tests is recommended Other findings as noted, including degenerative spondylosis, surgically absent uterus No cough, chest pain, rashes, change in vision, sore throat, joint pain. Allergies: Coded Allergies: ASPIRIN (Verified Allergy, Unknown, 03/27/17) LATEX (Verified Allergy, Unknown, 03/27/17) PINEAPPLE (Verified Allergy, Unknown, 03/27/17) STRAWBERRY (Verified Allergy, Unknown, 03/27/17) Patient History Past Medical History: see triage record Past Surgical History: jos, other - portacath, ovarian CA surgery Social History: Denies: smoking Social History Narrative Last Menstrual Period: 2006 Now: No : 0 Para: 0 Reviewed Nursing Documentation: PMH: Agreed, PSxH: Agreed Nursing Documentation-PMH Hx Cardiac Problems: Yes Hx Hypertension: Yes Hx Diabetes: Yes - PER PT, CONTROLLED Hx Cancer: Yes - Stage 4 ovarian cancer Hx Gastrointestinal Problems: Yes - Diverticulosis Hx Neurological Problems: No Review of Systems All Other Systems: negative except mentioned in HPI Physical Exam Vital Signs Date Time Temp Pulse Resp B/P (MAP) Pulse Ox O2 Delivery O2 Flow Rate FiO2 08/10/17 20:47 119 22 115/92 100 Room Air 08/10/17 21:20 97.5 Sp02 EP Interpretation: reviewed, normal General Appearance: GCS 15, moderate distress Head: normocephalic Eyes: bilateral eye normal inspection, bilateral eye PERRL ENT: moist mucus membranes Neck: supple Respiratory: lungs clear, normal breath sounds Cardiovascular #1: regular rate, rhythm Cardiovascular #2: 2+ radial (R) Gastrointestinal: normal inspection, normal bowel sounds, no mass, non- distended, no guarding, no rebound, tenderness - epigastric, overweight Musculoskeletal: back normal, gait/station normal, normal range of motion Neurologic: alert, oriented x3, grossly normal Psychiatric: depressed affect, other - in pain Skin: normal inspection, warm/dry Medical Decision Making Diagnostic Impression: Primary Impression: Abdominal pain Qualified Codes: R10.13 - Epigastric pain Additional Impressions: Ovarian cancer Qualified Codes: C56.9 - Malignant neoplasm of unspecified ovary Hypokalemia UTI (urinary tract infection) Qualified Codes: N30.00 - Acute cystitis without hematuria ER Course The patient presents with abdominal pain, vomiting and diarrhea with h/o ovarian cancer with lab evidence of recurrence (post chemotherapy). DDx: SBO, GItis, UTI, diverticulitis, gastritis, diverticulitis, pancreatitis amongst others. Complicated patient with co-morbidities needing comprehensive evaluation. Evaluation with labs, CXR and abdominal films (will determine whether CT indicated based on labs, films and clinical course.) Treatment with IV hydration, anti-emetics and analgesia. Labs with normal WBC and adequate H/H (higher than prior suggests some hemoconcentration/dehydration). Potassium is low. Abdominal and CXR with portacath and prior surgery without suggestion of SBO. Improved but still nauseated. Potassium replacement ordered IV. Based on character and nature of pain, doubt diverticulitis. No further imaging studies indicated at this time. UA with pyuria (patient with dysuria). Antibiotics ordered. Nature of pain against this being source of epigastric pain. Patient admitted medical floor to Dr. Pandya. Laboratory Tests Test 08/10/17 21:15 08/10/17 22:50 White Blood Count 8.9 K/UL (4.8-10.8) Red Blood Count 4.44 M/UL (4.20-5.40) Hemoglobin 13.9 G/DL (12.0-16.0) Hematocrit 42.6 % (37.0-47.0) Mean Corpuscular Volume 96 FL (80-99) Mean Corpuscular Hemoglobin 31.3 PG (27.0-31.0) H Mean Corpuscular Hemoglobin Concent 32.7 G/DL (32.0-36.0) Red Cell Distribution Width 11.8 % (11.6-14.8) Platelet Count 326 K/UL (150-450) Mean Platelet Volume 7.8 FL (6.5-10.1) Neutrophils (%) (Auto) 82.6 % (45.0-75.0) H Lymphocytes (%) (Auto) 12.6 % (20.0-45.0) L Monocytes (%) (Auto) 4.1 % (1.0-10.0) Eosinophils (%) (Auto) 0.3 % (0.0-3.0) Basophils (%) (Auto) 0.4 % (0.0-2.0) Prothrombin Time 10.0 SEC (9.30-11.50) Prothrombin Time INR 1.0 (0.9-1.1) PTT 25 SEC (23-33) Sodium Level 138 MMOL/L (136-145) Potassium Level 3.0 MMOL/L (3.5-5.1) L Chloride Level 100 MMOL/L (98-107) Carbon Dioxide Level 26 MMOL/L (21-32) Anion Gap 12 mmol/L (5-15) Blood Urea Nitrogen 17 mg/dL (7-18) Creatinine 1.5 MG/DL (0.55-1.30) H Estimate Glomerular Filtration Rate 43.3 mL/min (>60) Glucose Level 138 MG/DL (74-106) H Calcium Level 10.0 MG/DL (8.5-10.1) Total Bilirubin 0.4 MG/DL (0.2-1.0) Aspartate Amino Transferase (AST) 20 U/L (15-37) Alanine Aminotransferase (ALT) 20 U/L (12-78) Alkaline Phosphatase 60 U/L (46-116) Troponin I 0.000 ng/mL (0.000-0.056) Total Protein 8.2 G/DL (6.4-8.2) Albumin 3.7 G/DL (3.4-5.0) Globulin 4.5 g/dL Albumin/Globulin Ratio 0.8 (1.0-2.7) L Lipase 57 U/L (73-393) L Urine Color Yellow Urine Appearance Slightly cloudy Urine pH 5 (4.5-8.0) Urine Specific [place] 1.025 (1.005-1.035) Urine Protein 3+ (NEGATIVE) H Urine Glucose (UA) Negative (NEGATIVE) Urine Ketones 1+ (NEGATIVE) H Urine Occult Blood 3+ (NEGATIVE) H Urine Nitrite Negative (NEGATIVE) Urine Bilirubin 1+ (NEGATIVE) H Urine Ictotest Negative Urine Urobilinogen 1 MG/DL (0.0-1.0) H Urine Leukocyte Esterase 1+ (NEGATIVE) H Urine RBC 2-4 /HPF (0 - 2) H Urine WBC 5-10 /HPF (0 - 2) H Urine Squamous Epithelial Cells Few /LPF (NONE/OCC) Urine Bacteria Few /HPF (NONE) Urine Hyaline Casts 5-10 /LPF (NONE) H Urine Fine Granular Casts 0-2 /LPF (NONE) H Urine Other Casts 2-4 /LPF (NONE) H Urine Mucus Moderate /LPF (NONE/OCC) H Rhythm Strip Diag. Results EP Interpretation: yes Rhythm: no PVC's, no ectopy, other - ST Chest X-Ray Diagnostic Results Chest X-Ray Diagnostic Results : Chest X-Ray Ordered: Yes # of Views/Limited/Complete: 1 View Indication: Other Interpretation: no consolidation, no effusion, no pneumothorax, no acute cardiopulmonary disease, other - portacath Impression: No acute disease Electronically Signed by: Electronically signed by Oh Almonte MD Other X-Ray Diagnostic Results Other X-Ray Diagnostic Results : X-Ray ordered: abd # of Views/Limited Vs Complete: 2 View Indication: Pain Interpretation: nonspecific bowel gas, no sbo, other - Surgical clip Impression: Other Electronically Signed by: Electronically signed by Oh Almonte MD Last Vital Signs Date Time Temp Pulse Resp B/P (MAP) Pulse Ox O2 Delivery O2 Flow Rate FiO2 08/10/17 22:40 98.1 94 22 124/86 98 Room Air Status: improved Disposition: ADMITTED INPATIENT Condition: Serious Referrals: NOT CHOSEN [facility]/,REFERRING (PCP) Oh Almonte M.D. Aug 10, 2017 22:21
[2017-08-10 22:40] VITALS: BP 124/86
[2017-08-10 23:09] LABS: APPEARANCE,URINE SLIGHTLY CLOUDY; BILIRUBIN, URINE 1+ (NEGATIVE); GLUCOSE, URINE (UA) NEGATIVE (NEGATIVE); KETONES,URINE 1+ (NEGATIVE); LEUKOCYTE ESTERASE ,URINE 1+ (NEGATIVE); NITRITE,URINE NEGATIVE (NEGATIVE); PH,URINE 5 (4.5-8.0); PROTEIN,URINE 3+ (NEGATIVE); UROBILINOGEN,URINE 1 MG/DL (0.0-1.0)
[2017-08-10 23:29] LABS: COLOR,URINE YELLOW
[2017-08-10] MEDS ORDERED: HYDROmorphone 4mg tab ORAL PRN (23:45)
[2017-08-10] MEDS ORDERED: Ondansetron ODT 8mg tab ORAL PRN (23:45)
[2017-08-10] MEDS ORDERED: Loperamide 2mg cap ORAL PRN (23:45)
[2017-08-11 00:05] VITALS: BP 128/88
[2017-08-11] MEDS ORDERED: cefTRIAXone 1 GM in D5W 55 ML IVPB ONE (00:15)
[2017-08-11 00:36] VITALS: BP 141/79
[2017-08-11 04:00] VITALS: BP 122/69
[2017-08-11] MEDS ORDERED: MS Contin 15mg tab ORAL SCH (06:00)
[2017-08-11 08:07] LABS: ALANINE AMINOTRANSFERASE 14 U/L (12-78); ALBUMIN 2.8 G/DL (3.4-5.0); ALBUMIN/GLOBULIN RATIO 0.8 (1.0-2.7); ALKALINE PHOSPHATASE 45 U/L (46-116); AMYLASE 65 U/L (25-115); ANION GAP 9 mmol/L (5-15); ASPARTATE AMINO TRANSFERASE 16 U/L (15-37); BILIRUBIN,TOTAL 0.3 MG/DL (0.2-1.0); BLOOD UREA NITROGEN 15 mg/dL (7-18); CALCIUM 8.7 MG/DL (8.5-10.1); CARBON DIOXIDE 27 MMOL/L (21-32); CHLORIDE 106 MMOL/L (98-107); CREATININE 1.1 MG/DL (0.55-1.30); POTASSIUM 3.2 MMOL/L (3.5-5.1); SODIUM 142 MMOL/L (136-145)
[2017-08-11] MEDS: Triamterene/Hctz 37.5/25 cap ORAL SCH (08:41)
[2017-08-11] MEDS: Losartan 50mg tab ORAL SCH (08:41)
[2017-08-11] MEDS: Enoxaparin 40mg Inj SUBQ SCH (09:00)
[2017-08-11 09:56] LABS: BASOPHILS % (AUTO) 0.6 % (0.0-2.0); EOSINOPHILS % (AUTO) 2.6 % (0.0-3.0); HEMOGLOBIN 13.4 G/DL (12.0-16.0); MEAN CORPUSCULAR VOLUME 97 FL (80-99); MONOCYTES % (AUTO) 8.3 % (1.0-10.0); NEUTROPHILS % (AUTO) 69.5 % (45.0-75.0); PLATELET COUNT 264 K/UL (150-450); RED BLOOD COUNT 4.12 M/UL (4.20-5.40); RED CELL DISTRIBUTION WIDTH 12.3 % (11.6-14.8); WHITE BLOOD COUNT 6.7 K/UL (4.8-10.8)
[2017-08-11 12:00] VITALS: BP 127/70
--- NOTE | 2017-08-11 12:02 | Diagnostic Imaging Report ---
Indication: Dyspnea Comparison: None A single view chest radiograph was obtained. Findings: Cardiomediastinal appearance is within normal limits for age. Pulmonary vascularity is appropriate. The diaphragmatic contour is smooth and costophrenic angles are sharp. No pleural effusions are identified. The bones are osteopenic. There is a right chest port in good position. Impression: No acute findings
--- NOTE | 2017-08-11 12:03 | Diagnostic Imaging Report ---
Indication: Abdominal pain Comparison: None Single view of the abdomen obtained There is relative absence of bowel gas. Bones are osteopenic. Surgical clips noted in the right side of abdomen. Impression: No acute disease
--- NOTE | 2017-08-11 12:46 | GI Initial Consult Note ---
History of Present Illness General Date patient seen: Aug 11, 2017 Time patient seen: 12:44 Reason for Hospitalization: Abdominal Pain Referring physician: EMILIA CIFUENTES Reason for Consultation: ABDOMINAL PAIN Present Illness HPI The patient presents with abdominal pain and vomiting. Today she actually had diarrhea. There is also some blood streaked in it. She vomiting blood. She's having difficulty keeping down any medications at this time. His abdominal pain is epigastric and not radiating. She was admitted in May of her diverticulitis. Has had a UTI at that time. She does complain of dysuria - no hematuria. The patient is a history of ovarian carcinoma post chemotherapy early this year. Her levels have increased from 5 into the 200s recently. She is depressed about this. GI consulted for abdominal pain. HPI as noted above. Pt seen on floor, awake A&Ox4 NAD with no active s/sx of N/V/D. Patient c/o of abdominal pain, tender to touch all quad. Abdomen is distended and tympanic. Pt c/o of abdominal pain when drinking water. Patient had recent EGD here at [place] and colonoscopy at [facility] with unremarkable results. Discharge diagnoses May 23 were: 1. Acute on chronic colitis/diverticulitis. 2. Enteritis. 3. Common bile duct dilatation. 4. Hypokalemia, resolved. 5. Urinary tract infection with Escherichia coli. 6. Chronic pain. 7. Ovarian cancer survivor, status post bilateral salpingo-oophorectomy and chemotherapy. 8. Hypertension. 9. Gastritis versus gastropathy bile induced. 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 05/26/17 Reported Medications Fluticasone/Vilanterol (Breo Ellipta 100-25 Mcg INH) 1 Each Blst.w.dev, 1 EACH IH DAILY, EACH 04/25/17 Albuterol Sulfate (VENTOLIN HFA) 18 Gm Hfa.aer.ad, 2 PUFFS INH FOUR TIMES A DAY Y for Shortness of Breath, #18 GM 0 Refills 04/25/17 Loperamide HCl (IMODIUM A-D) 2 Mg Capsule, 2 MG PO FOUR TIMES A DAY Y for Diarrhea, CAP 04/25/17 Ondansetron Hcl* (ZOFRAN*) 8 Mg Tablet, 8 MG ORAL Q8HR Y for Nausea & Vomiting, #4 TAB 0 Refills 04/25/17 Dexlansoprazole (Dexilant) 60 Mg Cap.bp, 60 MG ORAL DAILY, CAP 04/25/17 Furosemide* (LASIX*) 20 Mg Tablet, 20 MG ORAL DAILY, TAB 04/25/17 Losartan Potassium* (COZAAR*) 50 Mg Tablet, 50 MG ORAL DAILY, TAB 04/25/17 Pantoprazole* (PROTONIX*) 40 Mg Tablet.dr, 40 MG ORAL DAILY, TAB 04/25/17 Docusate Sodium* (COLACE*) 100 Mg Capsule, 100 MG ORAL TWICE A DAY, CAP 04/25/17 Hydromorphone Hcl (DILAUDID) 8 Mg Tablet, 4 MG PO Q6HR Y for Breakthrough Pain, TAB 03/27/17 Prochlorperazine Maleate* (COMPAZINE*) 5 Mg Tablet, 10 MG ORAL Q8HR Y for Nausea & Vomiting, TAB 0 Refills 03/27/17 Morphine HCl (Morphine Sulfate ER) 15 Mg Tablet.er, 15 MG ORAL Q8HR, TAB 03/27/17 Potassium Chloride (KLOR-CON) 20 Meq Packet, 20 MEQ ORAL DAILY, #30 PKT 0 Refills 03/27/17 Losartan Potassium* (LOSARTAN POTASSIUM*) 50 Mg Tablet, 50 MG ORAL DAILY, TAB 03/27/17 Triamterene/Hctz (Triamterene-Hctz 37.5-25 mg Cp) 1 Each Capsule, 1 CAP ORAL DAILY, #10 CAP 0 Refills 03/27/17 Med list reviewed/reconciled: Yes Allergies: Coded Allergies: ASPIRIN (Verified Allergy, Unknown, 03/27/17) LATEX (Verified Allergy, Unknown, 03/27/17) PINEAPPLE (Verified Allergy, Unknown, 03/27/17) STRAWBERRY (Verified Allergy, Unknown, 03/27/17) Patient History History Provided By: Patient, Medical Record PMH Narrative Past Medical History: see triage record Past Surgical History: jos, other - portacath, ovarian CA surgery Social History: Denies: smoking Social History Narrative Last Menstrual Period: 2006 Now: No : 0 Para: 0 Reviewed Nursing Documentation: PMH: Agreed, PSxH: Agreed Nursing Documentation-PMH Hx Cardiac Problems: Yes Hx Hypertension: Yes Hx Diabetes: Yes - PER PT, CONTROLLED Hx Cancer: Yes - Stage 4 ovarian cancer Hx Gastrointestinal Problems: Yes - Diverticulosis Hx Neurological Problems: No Review of Systems All Other Systems: negative except mentioned in HPI Physical Exam Vital Signs Date Time Temp Pulse Resp B/P (MAP) Pulse Ox O2 Delivery O2 Flow Rate FiO2 08/10/17 20:47 119 22 115/92 100 Room Air 08/10/17 21:20 97.5 Sp02 EP Interpretation: reviewed, normal Labs Laboratory Tests Test 08/10/17 21:15 08/10/17 22:50 08/11/17 04:40 08/11/17 09:15 White Blood Count 8.9 K/UL (4.8-10.8) 6.7 K/UL (4.8-10.8) Red Blood Count 4.44 M/UL (4.20-5.40) 4.12 M/UL (4.20-5.40) L Hemoglobin 13.9 G/DL (12.0-16.0) 13.4 G/DL (12.0-16.0) Hematocrit 42.6 % (37.0-47.0) 40.0 % (37.0-47.0) Mean Corpuscular Volume 96 FL (80-99) 97 FL (80-99) Mean Corpuscular Hemoglobin 31.3 PG (27.0-31.0) H 32.6 PG (27.0-31.0) H Mean Corpuscular Hemoglobin Concent 32.7 G/DL (32.0-36.0) 33.6 G/DL (32.0-36.0) Red Cell Distribution Width 11.8 % (11.6-14.8) 12.3 % (11.6-14.8) Platelet Count 326 K/UL (150-450) 264 K/UL (150-450) Mean Platelet Volume 7.8 FL (6.5-10.1) 7.4 FL (6.5-10.1) Neutrophils (%) (Auto) 82.6 % (45.0-75.0) H 69.5 % (45.0-75.0) Lymphocytes (%) (Auto) 12.6 % (20.0-45.0) L 19.0 % (20.0-45.0) L Monocytes (%) (Auto) 4.1 % (1.0-10.0) 8.3 % (1.0-10.0) Eosinophils (%) (Auto) 0.3 % (0.0-3.0) 2.6 % (0.0-3.0) Basophils (%) (Auto) 0.4 % (0.0-2.0) 0.6 % (0.0-2.0) Prothrombin Time 10.0 SEC (9.30-11.50) Prothromb Time International Ratio 1.0 (0.9-1.1) Activated Partial Thromboplast Time 25 SEC (23-33) Sodium Level 138 MMOL/L (136-145) 142 MMOL/L (136-145) Potassium Level 3.0 MMOL/L (3.5-5.1) L 3.2 MMOL/L (3.5-5.1) L Chloride Level 100 MMOL/L (98-107) 106 MMOL/L (98-107) Carbon Dioxide Level 26 MMOL/L (21-32) 27 MMOL/L (21-32) Anion Gap 12 mmol/L (5-15) 9 mmol/L (5-15) Blood Urea Nitrogen 17 mg/dL (7-18) 15 mg/dL (7-18) Creatinine 1.5 MG/DL (0.55-1.30) H 1.1 MG/DL (0.55-1.30) Estimat Glomerular Filtration Rate 43.3 mL/min (>60) > 60 mL/min (>60) Glucose Level 138 MG/DL (74-106) H 95 MG/DL (74-106) Calcium Level 10.0 MG/DL (8.5-10.1) 8.7 MG/DL (8.5-10.1) Total Bilirubin 0.4 MG/DL (0.2-1.0) 0.3 MG/DL (0.2-1.0) Aspartate Amino Transf (AST/SGOT) 20 U/L (15-37) 16 U/L (15-37) Alanine Aminotransferase (ALT/SGPT) 20 U/L (12-78) 14 U/L (12-78) Alkaline Phosphatase 60 U/L (46-116) 45 U/L (46-116) L Troponin I 0.000 ng/mL (0.000-0.056) Total Protein 8.2 G/DL (6.4-8.2) 6.4 G/DL (6.4-8.2) Albumin 3.7 G/DL (3.4-5.0) 2.8 G/DL (3.4-5.0) L Globulin 4.5 g/dL 3.6 g/dL Albumin/Globulin Ratio 0.8 (1.0-2.7) L 0.8 (1.0-2.7) L Lipase 57 U/L (73-393) L 46 U/L (73-393) L Urine Color Yellow Urine Appearance Slightly cloudy Urine pH 5 (4.5-8.0) Urine Specific [place] 1.025 (1.005-1.035) Urine Protein 3+ (NEGATIVE) H Urine Glucose (UA) Negative (NEGATIVE) Urine Ketones 1+ (NEGATIVE) H Urine Occult Blood 3+ (NEGATIVE) H Urine Nitrite Negative (NEGATIVE) Urine Bilirubin 1+ (NEGATIVE) H Urine Ictotest Negative Urine Urobilinogen 1 MG/DL (0.0-1.0) H Urine Leukocyte Esterase 1+ (NEGATIVE) H Urine RBC 2-4 /HPF (0 - 2) H Urine WBC 5-10 /HPF (0 - 2) H Urine Squamous Epithelial Cells Few /LPF (NONE/OCC) Urine Bacteria Few /HPF (NONE) Urine Hyaline Casts 5-10 /LPF (NONE) H Urine Fine Granular Casts 0-2 /LPF (NONE) H Urine Other Casts 2-4 /LPF (NONE) H Urine Mucus Moderate /LPF (NONE/OCC) H Amylase Level 65 U/L (25-115) General Appearance: well appearing, no apparent distress, alert, obese Head: normocephalic EENT: PERRL/EOMI, normal ENT inspection Neck: supple Respiratory: normal breath sounds, no respiratory distress Cardiovascular: normal rate Gastrointestinal: soft - tympanic, normal bowel sounds, distended, tenderness Rectal: deferred Genitourinary: no CVA tenderness Musculoskeletal: normal inspection, back normal Neurologic: normal inspection, alert, oriented x3, responsive Psychiatric: normal inspection, judgement/insight normal, memory normal Skin: normal inspection, normal color, no rash, warm/dry, palpation normal, well hydrated Lymphatic: normal inspection, no adenopathy Current Medications Current Medications Medications (Trade) Dose Ordered Sig/Kermit Route PRN Reason Start Time Stop Time Status Last Admin Dose Admin Ciprofloxacin 200 ml @ 200 mls/hr Q12HR IV 08/11/17 12:00 08/18/17 11:59 08/11/17 12:39 Enoxaparin Sodium (Lovenox) 40 mg DAILY SUBQ 08/11/17 09:00 09/10/17 08:59 Hydromorphone HCl (Dilaudid) 2 mg Q4H PRN IVP Severe Pain (Pain Scale 7-10) 08/11/17 10:30 08/18/17 10:29 08/11/17 10:34 Loperamide HCl (Imodium) 2 mg QID PRN ORAL Diarrhea 08/10/17 23:45 09/09/17 23:44 Losartan Potassium (Cozaar) 50 mg DAILY ORAL 08/11/17 09:00 09/10/17 08:59 Ondansetron HCl (Zofran ODT) 8 mg Q8HR PRN ORAL Nausea & Vomiting 08/10/17 23:45 09/09/17 23:44 08/11/17 08:37 Pantoprazole (Protonix) 40 mg ACBREAKFAST ORAL 08/11/17 09:00 09/10/17 08:59 08/11/17 08:39 Sodium Chloride 1,000 ml @ 100 mls/hr Q10H IV 08/11/17 11:30 09/10/17 11:29 08/11/17 12:39 Triamterene/HCTZ (Dyazide) 1 cap DAILY ORAL 08/11/17 09:00 09/10/17 08:59 GI: Plan Problems: (1) Abdominal pain (2) Diverticulitis (3) Common bile duct dilation (4) Sepsis (5) Ovarian cancer Plan s/p EGD 05/22 SUMMARY FINDINGS: Possible bile induced gastritis/gastropathy, status post biopsy, otherwise normal upper endoscopic examination. - Biopsies >> negative s/p colonoscopy in June 2017 at [facility] >> unremarkable per patient KUB/CXR reviewed >> unremarkable results maintain NPO + IVFs fu CT Chest/AP cont ppi fu labs Discussed with Dr. Vosoghi. Thank you for this patient referral, we will follow. Emily Braxton N.P. Aug 11, 2017 12:46
--- NOTE | 2017-08-11 14:23 | General Progress Note ---
Assessment/Plan Status: stable Assessment/Plan 1- Acute Abdomen 2- Diverticulitis 3- UTI 4- Ovarian CA- history of 5- Chronic pain Plan: Start Cipro IV Pending CT of abdomen- per GI Dr Olivares for Pain management Subjective ROS Limited/Unobtainable: No Constitutional: Reports: malaise Gastrointestinal/Abdominal: Reports: abdominal pain Allergies: Coded Allergies: ASPIRIN (Verified Allergy, Unknown, 03/27/17) LATEX (Verified Allergy, Unknown, 03/27/17) PINEAPPLE (Verified Allergy, Unknown, 03/27/17) STRAWBERRY (Verified Allergy, Unknown, 03/27/17) Objective Last 24 Hour Vital Signs Date Time Temp Pulse Resp B/P (MAP) Pulse Ox O2 Delivery O2 Flow Rate FiO2 08/11/17 11:04 98.1 08/11/17 04:00 98.1 76 20 122/69 100 Room Air 08/11/17 02:50 97.7 08/11/17 00:36 97.7 84 18 141/79 98 Room Air 08/11/17 00:30 98.4 90 22 128/88 98 Room Air 08/11/17 00:05 98.4 90 22 128/88 98 Room Air 08/10/17 22:40 98.1 94 22 124/86 98 Room Air 08/10/17 22:08 97.5 08/10/17 21:20 97.5 98 22 122/88 98 Room Air 08/10/17 20:47 119 22 115/92 100 Room Air Intake and Output 08/11/17 08/12/17 19:00 07:00 # Bowel Movements 1 Laboratory Tests 08/10/17 21:15: White Blood Count 8.9, Red Blood Count 4.44, Hemoglobin 13.9, Hematocrit 42.6, Mean Corpuscular Volume 96, Mean Corpuscular Hemoglobin 31.3H, Mean Corpuscular Hemoglobin Concent 32.7, Red Cell Distribution Width 11.8, Platelet Count 326, Mean Platelet Volume 7.8, Neutrophils (%) (Auto) 82.6H, Lymphocytes (%) (Auto) 12.6L, Monocytes (%) (Auto) 4.1, Eosinophils (%) (Auto) 0.3, Basophils (%) (Auto ) 0.4, Prothrombin Time 10.0, Prothromb Time International Ratio 1.0, Activated Partial Thromboplast Time 25, Sodium Level 138, Potassium Level 3.0L, Chloride Level 100, Carbon Dioxide Level 26, Anion Gap 12, Blood Urea Nitrogen 17, Creatinine 1.5H, Estimat Glomerular Filtration Rate 43.3, Glucose Level 138H, Calcium Level 10.0, Total Bilirubin 0.4, Aspartate Amino Transf (AST/SGOT) 20, Alanine Aminotransferase (ALT/SGPT) 20, Alkaline Phosphatase 60, Troponin I 0.000, Total Protein 8.2, Albumin 3.7, Globulin 4.5, Albumin/Globulin Ratio 0.8L , Lipase 57L 08/10/17 22:50: Urine Color Yellow, Urine Appearance Slightly cloudy, Urine pH 5, Urine Specific [place] 1.025, Urine Protein 3+H, Urine Glucose (UA) Negative, Urine Ketones 1+H, Urine Occult Blood 3+H, Urine Nitrite Negative, Urine Bilirubin 1+H , Urine Ictotest Negative, Urine Urobilinogen 1H, Urine Leukocyte Esterase 1+H, Urine RBC 2-4H, Urine WBC 5-10H, Urine Squamous Epithelial Cells Few, Urine Bacteria Few, Urine Hyaline Casts 5-10H, Urine Fine Granular Casts 0-2H, Urine Other Casts 2-4H, Urine Mucus ModerateH 08/11/17 04:40: Sodium Level 142, Potassium Level 3.2L, Chloride Level 106, Carbon Dioxide Level 27, Anion Gap 9, Blood Urea Nitrogen 15, Creatinine 1.1, Estimat Glomerular Filtration Rate > 60, Glucose Level 95, Calcium Level 8.7, Total Bilirubin 0.3, Aspartate Amino Transf (AST/SGOT) 16, Alanine Aminotransferase ( ALT/SGPT) 14, Alkaline Phosphatase 45L, Total Protein 6.4, Albumin 2.8L, Globulin 3.6, Albumin/Globulin Ratio 0.8L, Lipase 46L, Amylase Level 65 08/11/17 09:15: White Blood Count 6.7, Red Blood Count 4.12L, Hemoglobin 13.4, Hematocrit 40.0, Mean Corpuscular Volume 97, Mean Corpuscular Hemoglobin 32.6H, Mean Corpuscular Hemoglobin Concent 33.6, Red Cell Distribution Width 12.3, Platelet Count 264, Mean Platelet Volume 7.4, Neutrophils (%) (Auto) 69.5, Lymphocytes (%) (Auto) 19.0L, Monocytes (%) (Auto) 8.3, Eosinophils (%) (Auto) 2.6, Basophils (%) (Auto ) 0.6 Height (Feet): 5 Height (Inches): 4.00 Weight (Pounds): 200 General Appearance: WD/WN EENT: PERRL/EOMI Neck: supple Cardiovascular: normal rate Respiratory/Chest: lungs clear Abdomen: soft Extremities: non-tender 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
[2017-08-11] MEDS ORDERED: 1/2 NS 1000ml IV ONE (15:52)
[2017-08-11] MEDS ORDERED: Tubing IV Secondary IV ONE (15:52)
--- NOTE | 2017-08-11 16:07 | Diagnostic Imaging Report ---
Indication: Chest pain abdominal pain and distention vomiting. Diarrhea. History of diverticulitis. UTI. Ovarian carcinoma status post chemotherapy earlier this year. Technique: Continuous helical transaxial imaging of the chest, abdomen and pelvis was obtained from the lung bases to the pubic symphysis during intravenous contrast administration. Multiple phases of enhancement obtained. Coronal 2-D reformats were also obtained. Study obtained in a Siemens sensation [address] Total Dose length Product (DLP): [address] Dose Index Volume (CTDIvol): 2.15, 8.11, 32.45, 21.75, 18.44 mGy Comparison: There are no CT chest exams for comparison. CT abdomen pelvis with contrast 05/20/17 is compared. Findings: CT chest: There are no lung nodules. Mild reticular densities at the lung bases consistent with atelectasis. There is no lymphadenopathy in the chest. The axilla. Clear. Aorta shows mild mineral calcification. There is a right chest port present in the position. Small hiatal hernia is present. CT abdomen pelvis: Comparison made with 05/20/17. There is moderate ascites present. This is increased since last exam. Subtle areas of nodularity and enhancement consistent with carcinomatosis. A focus of nodular enhancement measuring about 3 cm demonstrated in the left aspect of the abdomen (image 31, series 10 or image 34 series 12) consistent with tumor deposit. Peripheral right anterior abdomen 1.6 MM enhancing nodule (image 35 series 10) noted with other areas of scattered omental and peritoneal surface nodularity. Overall the findings have advanced since the last study. Cholecystectomy noted. There is no hydronephrosis. Kidneys enhance normally. The spleen and liver are unremarkable. Pancreas is unremarkable. Some areas of small bowel wall thickening are noted. (For example the right lower quadrant images 55-59 of series 10). These may represent serosal deposits of tumor. This consider inflammatory enteritis. There is no evidence of bowel obstruction. Small bowel loops appear normal caliber. There is contrast entering through the colon. There is some wall thickening involving the sigmoid region suspected although the sigmoid and remainder of the colon is nondistended on this study. Colon diverticula noted. Uterus is absent. The osseous structures show no obvious abnormalities and appear relatively homogeneous and mineralization. Impression: Peritoneal carcinomatosis with overall worsening and interval increased disease burden compared to the exam from 05/20/17. Greater number and size of peritoneal tumors demonstrated. Moderate ascites noted. Consider evaluation with CT PET. Inflammatory enteritis versus bowel wall involvement by tumor involving segment of small bowel in the right lower quadrant. No evidence of bowel obstruction. Nondistention versus thickening of the wall of the rectosigmoid colon. Please correlate clinically. Status post cholecystectomy. Status post hysterectomy and bilateral oophorectomy. The CT scanner at [facility] is accredited by the [employer] and the scans are performed using dose optimization techniques as appropriate to a performed exam including Automatic Exposure control.
[2017-08-11 16:15] VITALS: BP 144/89
[2017-08-11 20:00] VITALS: BP 145/88
[2017-08-11] MEDS: DiphenhydrAMINE 50mg/ml Inj IVP PRN (20:17)
--- NOTE | 2017-08-11 23:30 | History and Physical Report ---
DATE OF ADMISSION: 08/10/2017 SOURCE OF INFORMATION: Patient and EMR. HISTORY OF PRESENT ILLNESS: The patient is a 57-year-old female with a prior history of diverticulitis. The patient presented with acute onset of minimal bleeding from the rectum and minimal bleeding in the upper gastrointestinal. Patient describes passing streak of blood in the stool. The patient complains of abdominal pain, localized in the periumbilical area. The patient denies any fever or chills. PAST MEDICAL HISTORY: Diverticulitis, stage IV ovarian cancer, status post chemotherapy, oophorectomy, hysterectomy, and hypertension. PAST SURGICAL HISTORY: Hysterectomy and oophorectomy about a year ago. MEDICATIONS: Including Lasix, Lovenox, D5 normal saline, oxycodone, Dilaudid p.o. ALLERGIES: Aspirin, latex, pineapple, and strawberry. SOCIAL HISTORY: The patient denies history of illicit drug abuse, smoking, or alcohol abuse. The patient is single. She has no history of smoking. REVIEW OF SYSTEMS: All 12 elements of review of systems are reviewed and pertinent positives and negatives are detailed above. PHYSICAL EXAMINATION: VITAL SIGNS: Blood pressure 120/80, temperature 98.2, pulse oximetry 96% on room air, respiratory rate 18, and pulse rate 120. HEAD AND NECK: Atraumatic and normocephalic. CHEST: Clear to auscultation. HEART: S1 and S2. Regular rate and rhythm. ABDOMEN: Positive for tenderness on deep palpation. Negative for rebound tenderness. MUSCULOSKELETAL: No gross lateralized deficit. NEUROLOGIC: The patient is awake, alert, and oriented x3. LABORATORY DATA: Labs dated 08/08/2017 shows WBC 8.9, hemoglobin 13.9, and platelets 326. Sodium 138, potassium 3, BUN 17, and creatinine 1.5. ALT and AST are within normal limits. Urinalysis, positive for 3+ protein and 3+ blood. IMAGING STUDIES: CT scan of the abdomen is pending. ASSESSMENT: 1. Acute on chronic diverticulitis. 2. Chronic pain. 3. Ovarian cancer survivor. 4. Hypertension. 5. Urinary tract infection. 6. Gastrointestinal and deep vein thrombosis prophylaxes. PLAN OF CARE: Keep the patient NPO. We will continue with IV hydration. I would start the patient on IV ciprofloxacin for dual coverage. GI, Dr. Chavez is consulted. Christos Pandya M.D. DR: SHU JOB#: [id number] CC:
[2017-08-12] VITALS: BP 128/76
[2017-08-12 04:00] VITALS: BP 134/79
[2017-08-12 07:01] LABS: BASOPHILS % (AUTO) 0.7 % (0.0-2.0); EOSINOPHILS % (AUTO) 4.2 % (0.0-3.0); LYMPHOCYTES % (AUTO) 23.3 % (20.0-45.0); MEAN CORPUSCULAR VOLUME 98 FL (80-99); MONOCYTES % (AUTO) 8.5 % (1.0-10.0); NEUTROPHILS % (AUTO) 63.4 % (45.0-75.0); PLATELET COUNT 241 K/UL (150-450); RED BLOOD COUNT 3.37 M/UL (4.20-5.40); RED CELL DISTRIBUTION WIDTH 11.9 % (11.6-14.8); WHITE BLOOD COUNT 5.8 K/UL (4.8-10.8)
[2017-08-12 07:17] LABS: ANION GAP 12 mmol/L (5-15); BLOOD UREA NITROGEN 14 mg/dL (7-18); CALCIUM 8.9 MG/DL (8.5-10.1); CARBON DIOXIDE 25 MMOL/L (21-32); CHLORIDE 102 MMOL/L (98-107); CREATININE 1.2 MG/DL (0.55-1.30); POTASSIUM 2.9 MMOL/L (3.5-5.1); SODIUM 139 MMOL/L (136-145)
[2017-08-12 08:00] VITALS: BP 135/85
[2017-08-12] MEDS: Triamterene/Hctz 37.5/25 cap ORAL SCH (09:00)
[2017-08-12] MEDS: Losartan 50mg tab ORAL SCH (09:00)
--- NOTE | 2017-08-12 09:02 | General Progress Note ---
Assessment/Plan Assessment/Plan (1) Ovarian cancer (2) Intractable abdominal pain (3) Peritoneal carcinomatosis (4) Lumbar degenerative disk disease (5) Lumbar spondylosis (6) Lumbar radiculopathy We will continue Dilaudid and start Lidoderm patch to be applied to lower back at site of pain Q12H on Q12H off. We recommend oncology consult. The patient was discussed with Dr. Olivares and Dr. Olivares concurred Thank you for the courtesy of this consultation Subjective Date patient seen: Aug 12, 2017 Time patient seen: 08:00 - am Allergies: Coded Allergies: ASPIRIN (Verified Allergy, Unknown, 03/27/17) LATEX (Verified Allergy, Unknown, 03/27/17) PINEAPPLE (Verified Allergy, Unknown, 03/27/17) STRAWBERRY (Verified Allergy, Unknown, 03/27/17) Subjective REVIEW OF SYSTEMS: Denies rash, fever, chills, sweating, dizziness, drowsiness, blurred vision, sore throat, or change in weight. No shortness of breath or chest pain. No nausea, vomiting, diarrhea, or blood in the stool or urine. No bowel or bladder incontinence. No dysuria. She is complaining of abdominal pain and low back pain. SUBJECTIVE: Patient is a known patient from prior admission. Admitted due to abdominal pain diagnosed with ovarian ca. She is on Morphine ER 15mg Q8H and Dilaudid 4mg as needed when out pt, was started on this when admitted however pain was not tolerated and now is on Dilaudid 2mg IV Q4H PRN which patient reports has been helping her tolerate the pain well. Objective Last 24 Hour Vital Signs Date Time Temp Pulse Resp B/P (MAP) Pulse Ox O2 Delivery O2 Flow Rate FiO2 08/12/17 08:00 96.4 72 16 135/85 100 Room Air 08/12/17 04:00 98.0 70 20 134/79 96 Room Air 08/12/17 00:00 97.9 68 18 128/76 98 Room Air 08/11/17 20:00 97.9 75 20 145/88 97 Room Air 08/11/17 16:15 97.6 76 21 144/89 97 Room Air 08/11/17 16:00 98.0 08/11/17 12:00 98.0 70 18 127/70 99 Room Air Laboratory Tests 08/11/17 09:15: White Blood Count 6.7, Red Blood Count 4.12L, Hemoglobin 13.4, Hematocrit 40.0, Mean Corpuscular Volume 97, Mean Corpuscular Hemoglobin 32.6H, Mean Corpuscular Hemoglobin Concent 33.6, Red Cell Distribution Width 12.3, Platelet Count 264, Mean Platelet Volume 7.4, Neutrophils (%) (Auto) 69.5, Lymphocytes (%) (Auto) 19.0L, Monocytes (%) (Auto) 8.3, Eosinophils (%) (Auto) 2.6, Basophils (%) (Auto ) 0.6 08/12/17 04:40: White Blood Count 5.8, Red Blood Count 3.37L, Hemoglobin 11.0L, Hematocrit 33.0L , Mean Corpuscular Volume 98, Mean Corpuscular Hemoglobin 32.7H, Mean Corpuscular Hemoglobin Concent 33.4, Red Cell Distribution Width 11.9, Platelet Count 241, Mean Platelet Volume 6.6, Neutrophils (%) (Auto) 63.4, Lymphocytes (% ) (Auto) 23.3, Monocytes (%) (Auto) 8.5, Eosinophils (%) (Auto) 4.2H, Basophils (%) (Auto) 0.7, Sodium Level 139, Potassium Level 2.9L, Chloride Level 102, Carbon Dioxide Level 25, Anion Gap 12, Blood Urea Nitrogen 14, Creatinine 1.2, Estimat Glomerular Filtration Rate 56.0, Glucose Level 81, Calcium Level 8.9 Height (Feet): 5 Height (Inches): 4.00 Weight (Pounds): 200 Objective GENERAL: Alert, awake, and oriented x3. HEENT: PERRLA. NECK: Range of motion is full in all directions. No tenderness to paracervical muscles. No adenopathy. LUNGS: Clear. HEART: S1 and S2 regular. ABDOMEN: Tenderness to palpation. BACK: Range of motion is decreased in flexion and extension with tenderness to paraspinal muscles. No tenderness to trapezius or rhomboid muscles. EXTREMITIES: No cyanosis. No clubbing. No edema. NEURO: No changes. CT Chest Abdomen Pelvis W/Cont Impression: Peritoneal carcinomatosis with overall worsening and interval increased disease burden compared to the exam from 05/20/17. Greater number and size of peritoneal tumors demonstrated. Moderate ascites noted. Consider evaluation with CT PET. Inflammatory enteritis versus bowel wall involvement by tumor involving segment of small bowel in the right lower quadrant. No evidence of bowel obstruction. Nondistention versus thickening of the wall of the rectosigmoid colon. Please correlate clinically. Status post cholecystectomy. Status post hysterectomy and bilateral oophorectomy. SIERRA OLIVIER. Aug 12, 2017 09:02
[2017-08-12] MEDS: Enoxaparin 40mg Inj SUBQ SCH (09:24)
--- NOTE | 2017-08-12 09:45 | General Progress Note ---
Assessment/Plan Status: stable Assessment/Plan 1. Acute on chronic diverticulitis. 2. Chronic pain. 3. Ovarian cancer survivor- actively follows Oncologist as an outpatient 4. Hypertension. 5. Urinary tract infection. 6. Gastrointestinal and deep vein thrombosis prophylaxes. Plan: continue with Cipro IV NO acute pathology in CT of abdomen- per GI Dr Olivares for Pain management Subjective ROS Limited/Unobtainable: No Constitutional: Reports: malaise HEENT: Reports: no symptoms Cardiovascular: Reports: no symptoms Respiratory: Reports: no symptoms Gastrointestinal/Abdominal: Reports: no symptoms Allergies: Coded Allergies: ASPIRIN (Verified Allergy, Unknown, 03/27/17) LATEX (Verified Allergy, Unknown, 03/27/17) PINEAPPLE (Verified Allergy, Unknown, 03/27/17) STRAWBERRY (Verified Allergy, Unknown, 03/27/17) Objective Last 24 Hour Vital Signs Date Time Temp Pulse Resp B/P (MAP) Pulse Ox O2 Delivery O2 Flow Rate FiO2 08/12/17 08:00 96.4 72 16 135/85 100 Room Air 08/12/17 04:00 98.0 70 20 134/79 96 Room Air 08/12/17 00:00 97.9 68 18 128/76 98 Room Air 08/11/17 20:00 97.9 75 20 145/88 97 Room Air 08/11/17 16:15 97.6 76 21 144/89 97 Room Air 08/11/17 16:00 98.0 08/11/17 12:00 98.0 70 18 127/70 99 Room Air Laboratory Tests 08/12/17 04:40: White Blood Count 5.8, Red Blood Count 3.37L, Hemoglobin 11.0L, Hematocrit 33.0L , Mean Corpuscular Volume 98, Mean Corpuscular Hemoglobin 32.7H, Mean Corpuscular Hemoglobin Concent 33.4, Red Cell Distribution Width 11.9, Platelet Count 241, Mean Platelet Volume 6.6, Neutrophils (%) (Auto) 63.4, Lymphocytes (% ) (Auto) 23.3, Monocytes (%) (Auto) 8.5, Eosinophils (%) (Auto) 4.2H, Basophils (%) (Auto) 0.7, Sodium Level 139, Potassium Level 2.9L, Chloride Level 102, Carbon Dioxide Level 25, Anion Gap 12, Blood Urea Nitrogen 14, Creatinine 1.2, Estimat Glomerular Filtration Rate 56.0, Glucose Level 81, Calcium Level 8.9 Height (Feet): 5 Height (Inches): 4.00 Weight (Pounds): 200 General Appearance: no apparent distress EENT: PERRL/EOMI Neck: supple Cardiovascular: normal rate Respiratory/Chest: lungs clear Abdomen: guarding Extremities: non-tender 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
--- NOTE | 2017-08-12 11:45 | GI Progress Note ---
Assessment/Plan Problems: (1) Peritoneal carcinomatosis ICD Codes: C78.6 - Secondary malignant neoplasm of retroperitoneum and peritoneum; C80.1 - Malignant (primary) neoplasm, unspecified SNOMED: 113241795, 449185139 (2) Abdominal pain ICD Codes: R10.9 - Unspecified abdominal pain SNOMED: 12479000 Qualifiers: Qualified Codes: R10.13 - Epigastric pain (3) Ovarian cancer ICD Codes: C56.9 - Malignant neoplasm of unspecified ovary SNOMED: 720446362 Qualifiers: Qualified Codes: C56.9 - Malignant neoplasm of unspecified ovary Status: unchanged Status Narrative Discussed with Dr. Chavez. Assessment/Plan s/p EGD 05/22 SUMMARY FINDINGS: Possible bile induced gastritis/gastropathy, status post biopsy, otherwise normal upper endoscopic examination. - Biopsies from EGD >> negative s/p colonoscopy in June 2017 at [facility] >> unremarkable per patient KUB/CXR reviewed >> unremarkable results CT chest/AP reviewed >> see full report. - Peritoneal carcinomatosis with overall worsening and interval increased disease burden compared to the exam from 05/20/17. Greater number and size of peritoneal tumors demonstrated. Moderate ascites noted. - Inflammatory enteritis versus bowel wall involvement by tumor involving segment of small bowel in the right lower quadrant. - No evidence of bowel obstruction. recommend oncology consult adv diet as tolerated pain mgmt cont ppi fu labs Subjective Subjective abdominal pain less today Objective Last 24 Hour Vital Signs Date Time Temp Pulse Resp B/P (MAP) Pulse Ox O2 Delivery O2 Flow Rate FiO2 08/12/17 08:00 96.4 72 16 135/85 100 Room Air 08/12/17 04:00 98.0 70 20 134/79 96 Room Air 08/12/17 00:00 97.9 68 18 128/76 98 Room Air 08/11/17 20:00 97.9 75 20 145/88 97 Room Air 08/11/17 16:15 97.6 76 21 144/89 97 Room Air 08/11/17 16:00 98.0 08/11/17 12:00 98.0 70 18 127/70 99 Room Air Intake and Output 08/12/17 08/13/17 19:00 07:00 # Bowel Movements 1 Laboratory Tests Test 08/12/17 04:40 White Blood Count 5.8 K/UL (4.8-10.8) Red Blood Count 3.37 M/UL (4.20-5.40) L Hemoglobin 11.0 G/DL (12.0-16.0) L Hematocrit 33.0 % (37.0-47.0) L Mean Corpuscular Volume 98 FL (80-99) Mean Corpuscular Hemoglobin 32.7 PG (27.0-31.0) H Mean Corpuscular Hemoglobin Concent 33.4 G/DL (32.0-36.0) Red Cell Distribution Width 11.9 % (11.6-14.8) Platelet Count 241 K/UL (150-450) Mean Platelet Volume 6.6 FL (6.5-10.1) Neutrophils (%) (Auto) 63.4 % (45.0-75.0) Lymphocytes (%) (Auto) 23.3 % (20.0-45.0) Monocytes (%) (Auto) 8.5 % (1.0-10.0) Eosinophils (%) (Auto) 4.2 % (0.0-3.0) H Basophils (%) (Auto) 0.7 % (0.0-2.0) Sodium Level 139 MMOL/L (136-145) Potassium Level 2.9 MMOL/L (3.5-5.1) L Chloride Level 102 MMOL/L (98-107) Carbon Dioxide Level 25 MMOL/L (21-32) Anion Gap 12 mmol/L (5-15) Blood Urea Nitrogen 14 mg/dL (7-18) Creatinine 1.2 MG/DL (0.55-1.30) Estimat Glomerular Filtration Rate 56.0 mL/min (>60) Glucose Level 81 MG/DL (74-106) Calcium Level 8.9 MG/DL (8.5-10.1) Height (Feet): 5 Height (Inches): 4.00 Weight (Pounds): 200 General Appearance: WD/WN, no apparent distress, alert Cardiovascular: normal rate Respiratory/Chest: normal breath sounds, no respiratory distress Abdominal Exam: normal bowel sounds, non tender, soft Extremities: normal range of motion, non-tender Emily Braxton N.PSonia Aug 12, 2017 11:45
--- NOTE | 2017-08-12 11:45 | GI Progress Note ---
Assessment/Plan Problems: (1) Peritoneal carcinomatosis ICD Codes: C78.6 - Secondary malignant neoplasm of retroperitoneum and peritoneum; C80.1 - Malignant (primary) neoplasm, unspecified SNOMED: 868144382, 704046565 (2) Abdominal pain ICD Codes: R10.9 - Unspecified abdominal pain SNOMED: 05675718 Qualifiers: Qualified Codes: R10.13 - Epigastric pain (3) Ovarian cancer ICD Codes: C56.9 - Malignant neoplasm of unspecified ovary SNOMED: 576604803 Qualifiers: Qualified Codes: C56.9 - Malignant neoplasm of unspecified ovary Status: unchanged Status Narrative Discussed with Dr. Chavez. Assessment/Plan s/p EGD 05/22 SUMMARY FINDINGS: Possible bile induced gastritis/gastropathy, status post biopsy, otherwise normal upper endoscopic examination. - Biopsies from EGD >> negative s/p colonoscopy in June 2017 at [facility] >> unremarkable per patient KUB/CXR reviewed >> unremarkable results CT chest/AP reviewed >> see full report. - Peritoneal carcinomatosis with overall worsening and interval increased disease burden compared to the exam from 05/20/17. Greater number and size of peritoneal tumors demonstrated. Moderate ascites noted. - Inflammatory enteritis versus bowel wall involvement by tumor involving segment of small bowel in the right lower quadrant. - No evidence of bowel obstruction. recommend oncology consult adv diet as tolerated pain mgmt cont ppi fu labs Subjective Subjective abdominal pain less today Objective Last 24 Hour Vital Signs Date Time Temp Pulse Resp B/P (MAP) Pulse Ox O2 Delivery O2 Flow Rate FiO2 08/12/17 08:00 96.4 72 16 135/85 100 Room Air 08/12/17 04:00 98.0 70 20 134/79 96 Room Air 08/12/17 00:00 97.9 68 18 128/76 98 Room Air 08/11/17 20:00 97.9 75 20 145/88 97 Room Air 08/11/17 16:15 97.6 76 21 144/89 97 Room Air 08/11/17 16:00 98.0 08/11/17 12:00 98.0 70 18 127/70 99 Room Air Intake and Output 08/12/17 08/13/17 19:00 07:00 # Bowel Movements 1 Laboratory Tests Test 08/12/17 04:40 White Blood Count 5.8 K/UL (4.8-10.8) Red Blood Count 3.37 M/UL (4.20-5.40) L Hemoglobin 11.0 G/DL (12.0-16.0) L Hematocrit 33.0 % (37.0-47.0) L Mean Corpuscular Volume 98 FL (80-99) Mean Corpuscular Hemoglobin 32.7 PG (27.0-31.0) H Mean Corpuscular Hemoglobin Concent 33.4 G/DL (32.0-36.0) Red Cell Distribution Width 11.9 % (11.6-14.8) Platelet Count 241 K/UL (150-450) Mean Platelet Volume 6.6 FL (6.5-10.1) Neutrophils (%) (Auto) 63.4 % (45.0-75.0) Lymphocytes (%) (Auto) 23.3 % (20.0-45.0) Monocytes (%) (Auto) 8.5 % (1.0-10.0) Eosinophils (%) (Auto) 4.2 % (0.0-3.0) H Basophils (%) (Auto) 0.7 % (0.0-2.0) Sodium Level 139 MMOL/L (136-145) Potassium Level 2.9 MMOL/L (3.5-5.1) L Chloride Level 102 MMOL/L (98-107) Carbon Dioxide Level 25 MMOL/L (21-32) Anion Gap 12 mmol/L (5-15) Blood Urea Nitrogen 14 mg/dL (7-18) Creatinine 1.2 MG/DL (0.55-1.30) Estimat Glomerular Filtration Rate 56.0 mL/min (>60) Glucose Level 81 MG/DL (74-106) Calcium Level 8.9 MG/DL (8.5-10.1) Height (Feet): 5 Height (Inches): 4.00 Weight (Pounds): 200 General Appearance: WD/WN, no apparent distress, alert Cardiovascular: normal rate Respiratory/Chest: normal breath sounds, no respiratory distress Abdominal Exam: normal bowel sounds, non tender, soft Extremities: normal range of motion, non-tender Emily Braxton N.PSonia Aug 12, 2017 11:45
--- NOTE | 2017-08-12 11:45 | GI Progress Note ---
Assessment/Plan Problems: (1) Peritoneal carcinomatosis ICD Codes: C78.6 - Secondary malignant neoplasm of retroperitoneum and peritoneum; C80.1 - Malignant (primary) neoplasm, unspecified SNOMED: 043462470, 813508728 (2) Abdominal pain ICD Codes: R10.9 - Unspecified abdominal pain SNOMED: 49375393 Qualifiers: Qualified Codes: R10.13 - Epigastric pain (3) Ovarian cancer ICD Codes: C56.9 - Malignant neoplasm of unspecified ovary SNOMED: 077466258 Qualifiers: Qualified Codes: C56.9 - Malignant neoplasm of unspecified ovary Status: unchanged Status Narrative Discussed with Dr. Chavez. Assessment/Plan s/p EGD 05/22 SUMMARY FINDINGS: Possible bile induced gastritis/gastropathy, status post biopsy, otherwise normal upper endoscopic examination. - Biopsies from EGD >> negative s/p colonoscopy in June 2017 at [facility] >> unremarkable per patient KUB/CXR reviewed >> unremarkable results CT chest/AP reviewed >> see full report. - Peritoneal carcinomatosis with overall worsening and interval increased disease burden compared to the exam from 05/20/17. Greater number and size of peritoneal tumors demonstrated. Moderate ascites noted. - Inflammatory enteritis versus bowel wall involvement by tumor involving segment of small bowel in the right lower quadrant. - No evidence of bowel obstruction. recommend oncology consult adv diet as tolerated pain mgmt cont ppi fu labs Subjective Subjective abdominal pain less today Objective Last 24 Hour Vital Signs Date Time Temp Pulse Resp B/P (MAP) Pulse Ox O2 Delivery O2 Flow Rate FiO2 08/12/17 08:00 96.4 72 16 135/85 100 Room Air 08/12/17 04:00 98.0 70 20 134/79 96 Room Air 08/12/17 00:00 97.9 68 18 128/76 98 Room Air 08/11/17 20:00 97.9 75 20 145/88 97 Room Air 08/11/17 16:15 97.6 76 21 144/89 97 Room Air 08/11/17 16:00 98.0 08/11/17 12:00 98.0 70 18 127/70 99 Room Air Intake and Output 08/12/17 08/13/17 19:00 07:00 # Bowel Movements 1 Laboratory Tests Test 08/12/17 04:40 White Blood Count 5.8 K/UL (4.8-10.8) Red Blood Count 3.37 M/UL (4.20-5.40) L Hemoglobin 11.0 G/DL (12.0-16.0) L Hematocrit 33.0 % (37.0-47.0) L Mean Corpuscular Volume 98 FL (80-99) Mean Corpuscular Hemoglobin 32.7 PG (27.0-31.0) H Mean Corpuscular Hemoglobin Concent 33.4 G/DL (32.0-36.0) Red Cell Distribution Width 11.9 % (11.6-14.8) Platelet Count 241 K/UL (150-450) Mean Platelet Volume 6.6 FL (6.5-10.1) Neutrophils (%) (Auto) 63.4 % (45.0-75.0) Lymphocytes (%) (Auto) 23.3 % (20.0-45.0) Monocytes (%) (Auto) 8.5 % (1.0-10.0) Eosinophils (%) (Auto) 4.2 % (0.0-3.0) H Basophils (%) (Auto) 0.7 % (0.0-2.0) Sodium Level 139 MMOL/L (136-145) Potassium Level 2.9 MMOL/L (3.5-5.1) L Chloride Level 102 MMOL/L (98-107) Carbon Dioxide Level 25 MMOL/L (21-32) Anion Gap 12 mmol/L (5-15) Blood Urea Nitrogen 14 mg/dL (7-18) Creatinine 1.2 MG/DL (0.55-1.30) Estimat Glomerular Filtration Rate 56.0 mL/min (>60) Glucose Level 81 MG/DL (74-106) Calcium Level 8.9 MG/DL (8.5-10.1) Height (Feet): 5 Height (Inches): 4.00 Weight (Pounds): 200 General Appearance: WD/WN, no apparent distress, alert Cardiovascular: normal rate Respiratory/Chest: normal breath sounds, no respiratory distress Abdominal Exam: normal bowel sounds, non tender, soft Extremities: normal range of motion, non-tender Emiyl Braxton N.PSonia Aug 12, 2017 11:45
[2017-08-12 12:00] VITALS: BP 120/76
[2017-08-12 16:00] VITALS: BP 137/75
[2017-08-12] MEDS: DiphenhydrAMINE 50mg/ml Inj IVP PRN (21:20)
[2017-08-12 23:56] VITALS: BP 122/77
[2017-08-13 04:00] VITALS: BP 133/84
[2017-08-13] MEDS: DiphenhydrAMINE 50mg/ml Inj IVP PRN (06:09)
[2017-08-13 08:00] VITALS: BP 116/81
--- NOTE | 2017-08-13 08:12 | General Progress Note ---
Assessment/Plan Assessment/Plan (1) Ovarian cancer (2) Intractable abdominal pain (3) Peritoneal carcinomatosis (4) Lumbar degenerative disk disease (5) Lumbar spondylosis (6) Lumbar radiculopathy We will continue Dilaudid and Lidoderm patch. The patient was discussed with Dr. Olivares and Dr. Olivares concurred. Subjective Date patient seen: Aug 13, 2017 Time patient seen: 07:00 - am Allergies: Coded Allergies: ASPIRIN (Verified Allergy, Unknown, 03/27/17) LATEX (Verified Allergy, Unknown, 03/27/17) PINEAPPLE (Verified Allergy, Unknown, 03/27/17) STRAWBERRY (Verified Allergy, Unknown, 03/27/17) Subjective REVIEW OF SYSTEMS: Denies rash, fever, chills, sweating, dizziness, drowsiness, blurred vision, sore throat, or change in weight. No shortness of breath or chest pain. No nausea, vomiting, diarrhea, or blood in the stool or urine. No bowel or bladder incontinence. No dysuria. She is complaining of abdominal pain and low back pain. SUBJECTIVE: Patient is laying in bed continues to c/o severe pain and is waiting for paracentesis. The pain has been reduced from a 10/10 to a 6/10 on the Dilaudid. Objective Last 24 Hour Vital Signs Date Time Temp Pulse Resp B/P (MAP) Pulse Ox O2 Delivery O2 Flow Rate FiO2 08/13/17 04:00 97.7 79 18 133/84 99 Room Air 08/12/17 23:56 97.9 81 18 122/77 97 Room Air 08/12/17 16:00 98.1 75 19 137/75 97 Room Air 08/12/17 15:25 98.1 08/12/17 12:00 98.1 70 16 120/76 94 Room Air Intake and Output 08/13/17 08/14/17 19:00 07:00 Intake Total 100 ml Balance 100 ml IV Total 100 ml Height (Feet): 5 Height (Inches): 4.00 Weight (Pounds): 200 Objective GENERAL: Alert, awake, and oriented x3. HEENT: PERRLA. NECK: Range of motion is full in all directions. No tenderness to paracervical muscles. No adenopathy. LUNGS: Clear. HEART: S1 and S2 regular. ABDOMEN: Tenderness to palpation. BACK: Range of motion is decreased in flexion and extension with tenderness to paraspinal muscles. No tenderness to trapezius or rhomboid muscles. EXTREMITIES: No cyanosis. No clubbing. No edema. NEURO: No changes. CT Chest Abdomen Pelvis W/Cont Impression: Peritoneal carcinomatosis with overall worsening and interval increased disease burden compared to the exam from 05/20/17. Greater number and size of peritoneal tumors demonstrated. Moderate ascites noted. Consider evaluation with CT PET. Inflammatory enteritis versus bowel wall involvement by tumor involving segment of small bowel in the right lower quadrant. No evidence of bowel obstruction. Nondistention versus thickening of the wall of the rectosigmoid colon. Please correlate clinically. Status post cholecystectomy. Status post hysterectomy and bilateral oophorectomy. SIERRA OLIVIER Aug 13, 2017 08:11
[2017-08-13] MEDS: Losartan 50mg tab ORAL SCH (08:48)
[2017-08-13] MEDS: Triamterene/Hctz 37.5/25 cap ORAL SCH (08:49)
[2017-08-13] MEDS: Enoxaparin 40mg Inj SUBQ SCH (08:49)
--- NOTE | 2017-08-13 11:28 | GI Progress Note ---
Assessment/Plan Problems: (1) Peritoneal carcinomatosis ICD Codes: C78.6 - Secondary malignant neoplasm of retroperitoneum and peritoneum; C80.1 - Malignant (primary) neoplasm, unspecified SNOMED: 021006555, 327379631 (2) Abdominal pain ICD Codes: R10.9 - Unspecified abdominal pain SNOMED: 28771850 Qualifiers: Qualified Codes: R10.13 - Epigastric pain (3) Ovarian cancer ICD Codes: C56.9 - Malignant neoplasm of unspecified ovary SNOMED: 984972344 Qualifiers: Qualified Codes: C56.9 - Malignant neoplasm of unspecified ovary Status: stable Status Narrative Discussed with Dr. Chavez. Assessment/Plan s/p EGD 05/22 SUMMARY FINDINGS: Possible bile induced gastritis/gastropathy, status post biopsy, otherwise normal upper endoscopic examination. - Biopsies from EGD >> negative s/p colonoscopy in June 2017 at [facility] >> unremarkable per patient KUB/CXR reviewed >> unremarkable results CT chest/AP reviewed >> see full report. - Peritoneal carcinomatosis with overall worsening and interval increased disease burden compared to the exam from 05/20/17. Greater number and size of peritoneal tumors demonstrated. Moderate ascites noted. - Inflammatory enteritis versus bowel wall involvement by tumor involving segment of small bowel in the right lower quadrant. - No evidence of bowel obstruction. fu oncology consult, also has primary onc at [facility] fu paracentesis, cancelled to be done as outpatient regular diet, tolerating pain mgmt cont ppi fu labs Subjective Subjective abdominal pain less today c/o of abdominal distention Objective Last 24 Hour Vital Signs Date Time Temp Pulse Resp B/P (MAP) Pulse Ox O2 Delivery O2 Flow Rate FiO2 08/13/17 08:48 116/81 08/13/17 08:00 97.9 72 20 116/81 100 Room Air 08/13/17 04:00 97.7 79 18 133/84 99 Room Air 08/12/17 23:56 97.9 81 18 122/77 97 Room Air 08/12/17 16:00 98.1 75 19 137/75 97 Room Air 08/12/17 15:25 98.1 08/12/17 12:00 98.1 70 16 120/76 94 Room Air Intake and Output 08/13/17 08/14/17 19:00 07:00 Intake Total 500 ml Balance 500 ml IV Total 500 ml Height (Feet): 5 Height (Inches): 4.00 Weight (Pounds): 200 General Appearance: WD/WN, no apparent distress, alert Cardiovascular: normal rate Respiratory/Chest: normal breath sounds, no respiratory distress Abdominal Exam: normal bowel sounds, non tender, soft, distended, ascites Extremities: normal range of motion, non-tender Emily Braxton N.P. Aug 13, 2017 11:28
--- NOTE | 2017-08-13 11:28 | GI Progress Note ---
Assessment/Plan Problems: (1) Peritoneal carcinomatosis ICD Codes: C78.6 - Secondary malignant neoplasm of retroperitoneum and peritoneum; C80.1 - Malignant (primary) neoplasm, unspecified SNOMED: 748224347, 374211834 (2) Abdominal pain ICD Codes: R10.9 - Unspecified abdominal pain SNOMED: 18326024 Qualifiers: Qualified Codes: R10.13 - Epigastric pain (3) Ovarian cancer ICD Codes: C56.9 - Malignant neoplasm of unspecified ovary SNOMED: 932493095 Qualifiers: Qualified Codes: C56.9 - Malignant neoplasm of unspecified ovary Status: stable Status Narrative Discussed with Dr. Chavez. Assessment/Plan s/p EGD 05/22 SUMMARY FINDINGS: Possible bile induced gastritis/gastropathy, status post biopsy, otherwise normal upper endoscopic examination. - Biopsies from EGD >> negative s/p colonoscopy in June 2017 at [facility] >> unremarkable per patient KUB/CXR reviewed >> unremarkable results CT chest/AP reviewed >> see full report. - Peritoneal carcinomatosis with overall worsening and interval increased disease burden compared to the exam from 05/20/17. Greater number and size of peritoneal tumors demonstrated. Moderate ascites noted. - Inflammatory enteritis versus bowel wall involvement by tumor involving segment of small bowel in the right lower quadrant. - No evidence of bowel obstruction. fu oncology consult, also has primary onc at [facility] fu paracentesis, cancelled to be done as outpatient regular diet, tolerating pain mgmt cont ppi fu labs Subjective Subjective abdominal pain less today c/o of abdominal distention Objective Last 24 Hour Vital Signs Date Time Temp Pulse Resp B/P (MAP) Pulse Ox O2 Delivery O2 Flow Rate FiO2 08/13/17 08:48 116/81 08/13/17 08:00 97.9 72 20 116/81 100 Room Air 08/13/17 04:00 97.7 79 18 133/84 99 Room Air 08/12/17 23:56 97.9 81 18 122/77 97 Room Air 08/12/17 16:00 98.1 75 19 137/75 97 Room Air 08/12/17 15:25 98.1 08/12/17 12:00 98.1 70 16 120/76 94 Room Air Intake and Output 08/13/17 08/14/17 19:00 07:00 Intake Total 500 ml Balance 500 ml IV Total 500 ml Height (Feet): 5 Height (Inches): 4.00 Weight (Pounds): 200 General Appearance: WD/WN, no apparent distress, alert Cardiovascular: normal rate Respiratory/Chest: normal breath sounds, no respiratory distress Abdominal Exam: normal bowel sounds, non tender, soft, distended, ascites Extremities: normal range of motion, non-tender Emily Braxton N.P. Aug 13, 2017 11:28
--- NOTE | 2017-08-13 11:28 | GI Progress Note ---
Assessment/Plan Problems: (1) Peritoneal carcinomatosis ICD Codes: C78.6 - Secondary malignant neoplasm of retroperitoneum and peritoneum; C80.1 - Malignant (primary) neoplasm, unspecified SNOMED: 460203442, 055789692 (2) Abdominal pain ICD Codes: R10.9 - Unspecified abdominal pain SNOMED: 26752964 Qualifiers: Qualified Codes: R10.13 - Epigastric pain (3) Ovarian cancer ICD Codes: C56.9 - Malignant neoplasm of unspecified ovary SNOMED: 051436306 Qualifiers: Qualified Codes: C56.9 - Malignant neoplasm of unspecified ovary Status: stable Status Narrative Discussed with Dr. Chavez. Assessment/Plan s/p EGD 05/22 SUMMARY FINDINGS: Possible bile induced gastritis/gastropathy, status post biopsy, otherwise normal upper endoscopic examination. - Biopsies from EGD >> negative s/p colonoscopy in June 2017 at [facility] >> unremarkable per patient KUB/CXR reviewed >> unremarkable results CT chest/AP reviewed >> see full report. - Peritoneal carcinomatosis with overall worsening and interval increased disease burden compared to the exam from 05/20/17. Greater number and size of peritoneal tumors demonstrated. Moderate ascites noted. - Inflammatory enteritis versus bowel wall involvement by tumor involving segment of small bowel in the right lower quadrant. - No evidence of bowel obstruction. fu oncology consult, also has primary onc at [facility] fu paracentesis, cancelled to be done as outpatient regular diet, tolerating pain mgmt cont ppi fu labs Subjective Subjective abdominal pain less today c/o of abdominal distention Objective Last 24 Hour Vital Signs Date Time Temp Pulse Resp B/P (MAP) Pulse Ox O2 Delivery O2 Flow Rate FiO2 08/13/17 08:48 116/81 08/13/17 08:00 97.9 72 20 116/81 100 Room Air 08/13/17 04:00 97.7 79 18 133/84 99 Room Air 08/12/17 23:56 97.9 81 18 122/77 97 Room Air 08/12/17 16:00 98.1 75 19 137/75 97 Room Air 08/12/17 15:25 98.1 08/12/17 12:00 98.1 70 16 120/76 94 Room Air Intake and Output 08/13/17 08/14/17 19:00 07:00 Intake Total 500 ml Balance 500 ml IV Total 500 ml Height (Feet): 5 Height (Inches): 4.00 Weight (Pounds): 200 General Appearance: WD/WN, no apparent distress, alert Cardiovascular: normal rate Respiratory/Chest: normal breath sounds, no respiratory distress Abdominal Exam: normal bowel sounds, non tender, soft, distended, ascites Extremities: normal range of motion, non-tender Emily Braxton N.P. Aug 13, 2017 11:28
[2017-08-13 12:00] VITALS: BP 138/78
--- NOTE | 2017-08-13 12:39 | General Progress Note ---
Assessment/Plan Status: stable Assessment/Plan 1. Acute on chronic diverticulitis. 2. Chronic pain. 3. Ovarian cancer survivor- actively follows Oncologist as an outpatient 4. Hypertension. 5. Urinary tract infection. 6. Gastrointestinal and deep vein thrombosis prophylaxes. 7. Diffuse omental caking: high likely of recurrence of malignancy Plan: continue with Cipro PO NO acute pathology in CT of abdomen- per GI Dr Olivares for Pain management Advised to see her primary oncologist . she agreed Subjective ROS Limited/Unobtainable: No HEENT: Reports: no symptoms Cardiovascular: Reports: no symptoms Respiratory: Reports: no symptoms Allergies: Coded Allergies: ASPIRIN (Verified Allergy, Unknown, 03/27/17) LATEX (Verified Allergy, Unknown, 03/27/17) PINEAPPLE (Verified Allergy, Unknown, 03/27/17) STRAWBERRY (Verified Allergy, Unknown, 03/27/17) Objective Last 24 Hour Vital Signs Date Time Temp Pulse Resp B/P (MAP) Pulse Ox O2 Delivery O2 Flow Rate FiO2 08/13/17 08:48 116/81 08/13/17 08:00 97.9 72 20 116/81 100 Room Air 08/13/17 04:00 97.7 79 18 133/84 99 Room Air 08/12/17 23:56 97.9 81 18 122/77 97 Room Air 08/12/17 16:00 98.1 75 19 137/75 97 Room Air 08/12/17 15:25 98.1 Intake and Output 08/13/17 08/14/17 19:00 07:00 Intake Total 500 ml Balance 500 ml IV Total 500 ml Height (Feet): 5 Height (Inches): 4.00 Weight (Pounds): 200 General Appearance: no apparent distress EENT: PERRL/EOMI Neck: supple Cardiovascular: normal rate Respiratory/Chest: lungs clear Abdomen: soft, guarding, other - only on deep palpation Extremities: non-tender 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
[2017-08-13] MEDS ORDERED: CIPROFLOXA500 MG/5 M PO (13:18)
[2017-08-13 16:00] VITALS: BP 128/86
[2017-08-13 17:10] LABS: CHLORIDE 112 MMOL/L (98-107); SODIUM 144 MMOL/L (136-145)
[2017-08-13 17:32] LABS: ANION GAP 13 mmol/L (5-15); BLOOD UREA NITROGEN 8 mg/dL (7-18); CALCIUM 6.3 MG/DL (8.5-10.1); CARBON DIOXIDE 18 MMOL/L (21-32); CREATININE 0.7 MG/DL (0.55-1.30)
[2017-08-13 17:35] LABS: POTASSIUM 2.6 MMOL/L (3.5-5.1)
[2017-08-13 20:00] VITALS: BP 137/92
[2017-08-14] VITALS: BP 133/85
[2017-08-14] MEDS: DiphenhydrAMINE 50mg/ml Inj IVP PRN (00:01)
[2017-08-14 04:00] VITALS: BP 136/81
[2017-08-14 08:00] VITALS: BP 125/66
--- NOTE | 2017-08-14 08:28 | General Progress Note ---
Assessment/Plan Assessment/Plan (1) Ovarian cancer (2) Intractable abdominal pain (3) Peritoneal carcinomatosis (4) Lumbar degenerative disk disease (5) Lumbar spondylosis (6) Lumbar radiculopathy We will continue Dilaudid and Lidoderm patch. The patient was discussed with Dr. Olivares and Dr. Olivares concurred. Subjective Date patient seen: Aug 14, 2017 Time patient seen: 07:00 - am Allergies: Coded Allergies: ASPIRIN (Verified Allergy, Unknown, 03/27/17) LATEX (Verified Allergy, Unknown, 03/27/17) PINEAPPLE (Verified Allergy, Unknown, 03/27/17) STRAWBERRY (Verified Allergy, Unknown, 03/27/17) Subjective REVIEW OF SYSTEMS: Denies rash, fever, chills, sweating, dizziness, drowsiness, blurred vision, sore throat, or change in weight. No shortness of breath or chest pain. No nausea, vomiting, diarrhea, or blood in the stool or urine. No bowel or bladder incontinence. No dysuria. She is complaining of abdominal pain and low back pain. SUBJECTIVE: Patient continues to have severe abdominal pain and distention. She has started eating but has some nausea and is unable to take tabs yet. The pain has been reduced to a moderate level. Objective Last 24 Hour Vital Signs Date Time Temp Pulse Resp B/P (MAP) Pulse Ox O2 Delivery O2 Flow Rate FiO2 08/14/17 04:00 98.8 71 19 136/81 98 Room Air 08/14/17 00:00 98.2 79 20 133/85 97 Room Air 08/13/17 20:00 97.9 93 20 137/92 98 Room Air 08/13/17 16:00 97.7 77 20 128/86 97 Room Air 08/13/17 12:00 96.6 73 20 138/78 100 Room Air 08/13/17 08:48 116/81 Laboratory Tests 08/13/17 12:18: Sodium Level 144, Potassium Level 2.6*L, Chloride Level 112H, Carbon Dioxide Level 18L, Anion Gap 13, Blood Urea Nitrogen 8, Creatinine 0.7, Estimat Glomerular Filtration Rate > 60, Glucose Level 71L, Calcium Level 6.3#L Height (Feet): 5 Height (Inches): 4.00 Weight (Pounds): 200 Objective GENERAL: Alert, awake, and oriented x3. HEENT: PERRLA. NECK: Range of motion is full in all directions. No tenderness to paracervical muscles. No adenopathy. LUNGS: Clear. HEART: S1 and S2 regular. ABDOMEN: Tenderness to palpation. BACK: Range of motion is decreased in flexion and extension with tenderness to paraspinal muscles. No tenderness to trapezius or rhomboid muscles. EXTREMITIES: No cyanosis. No clubbing. No edema. NEURO: No changes. SIERRA OLIVIER Aug 14, 2017 08:28
[2017-08-14] MEDS: Enoxaparin 40mg Inj SUBQ SCH (08:32)
[2017-08-14] MEDS: Triamterene/Hctz 37.5/25 cap ORAL SCH (08:33)
[2017-08-14] MEDS: Losartan 50mg tab ORAL SCH (09:00)
--- NOTE | 2017-08-14 09:37 | General Progress Note ---
Assessment/Plan Status: stable Assessment/Plan 1. Acute on chronic diverticulitis: Resolved 2. Chronic pain. 3. Ovarian cancer survivor- actively follows Oncologist as an outpatient 4. Hypertension. 5. Urinary tract infection. 6. Gastrointestinal and deep vein thrombosis prophylaxes. 7. Diffuse omental caking: high likely of recurrence of malignancy 8. hypokalemia: Continue with replenishment Plan: continue with Cipro PO NO acute pathology in CT of abdomen- per GI Dr Olivares for Pain management Advised to see her primary oncologist . she agreed initially and then disagreed. Patient appealed the Discharge case discussed with GI- agreed to and defer ed the remainder of workup as an outpatient Subjective ROS Limited/Unobtainable: No Constitutional: Reports: malaise HEENT: Reports: no symptoms Cardiovascular: Reports: no symptoms Gastrointestinal/Abdominal: Reports: abdominal pain Allergies: Coded Allergies: ASPIRIN (Verified Allergy, Unknown, 03/27/17) LATEX (Verified Allergy, Unknown, 03/27/17) PINEAPPLE (Verified Allergy, Unknown, 03/27/17) STRAWBERRY (Verified Allergy, Unknown, 03/27/17) Objective Last 24 Hour Vital Signs Date Time Temp Pulse Resp B/P (MAP) Pulse Ox O2 Delivery O2 Flow Rate FiO2 08/14/17 08:00 97.7 84 20 125/66 97 Room Air 08/14/17 04:00 98.8 71 19 136/81 98 Room Air 08/14/17 00:00 98.2 79 20 133/85 97 Room Air 08/13/17 20:00 97.9 93 20 137/92 98 Room Air 08/13/17 16:00 97.7 77 20 128/86 97 Room Air 08/13/17 12:00 96.6 73 20 138/78 100 Room Air Laboratory Tests 08/13/17 12:18: Sodium Level 144, Potassium Level 2.6*L, Chloride Level 112H, Carbon Dioxide Level 18L, Anion Gap 13, Blood Urea Nitrogen 8, Creatinine 0.7, Estimat Glomerular Filtration Rate > 60, Glucose Level 71L, Calcium Level 6.3#L Height (Feet): 5 Height (Inches): 4.00 Weight (Pounds): 200 General Appearance: no apparent distress EENT: PERRL/EOMI Neck: supple Cardiovascular: normal rate Respiratory/Chest: lungs clear Abdomen: soft Extremities: non-tender 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
--- NOTE | 2017-08-14 11:14 | GI Progress Note ---
Assessment/Plan Problems: (1) Peritoneal carcinomatosis ICD Codes: C78.6 - Secondary malignant neoplasm of retroperitoneum and peritoneum; C80.1 - Malignant (primary) neoplasm, unspecified SNOMED: 359260635, 480150212 (2) Abdominal pain ICD Codes: R10.9 - Unspecified abdominal pain SNOMED: 67975685 Qualifiers: Qualified Codes: R10.13 - Epigastric pain (3) Ovarian cancer ICD Codes: C56.9 - Malignant neoplasm of unspecified ovary SNOMED: 221327168 Qualifiers: Qualified Codes: C56.9 - Malignant neoplasm of unspecified ovary Status: stable Status Narrative Discussed with Dr. Chavez. Assessment/Plan s/p EGD 05/22 SUMMARY FINDINGS: Possible bile induced gastritis/gastropathy, status post biopsy, otherwise normal upper endoscopic examination. - Biopsies from EGD >> negative s/p colonoscopy in June 2017 at [facility] >> unremarkable per patient KUB/CXR reviewed >> unremarkable results CT chest/AP reviewed >> see full report. - Peritoneal carcinomatosis with overall worsening and interval increased disease burden compared to the exam from 05/20/17. Greater number and size of peritoneal tumors demonstrated. Moderate ascites noted. - Inflammatory enteritis versus bowel wall involvement by tumor involving segment of small bowel in the right lower quadrant. - No evidence of bowel obstruction. okay for DC per GI standpoint fu oncology consult, also has primary onc at [facility] start patient on Aldactone 100 mg daily, will consider future paracentesis if abdominal pain/distention persists regular diet, tolerating pain mgmt cont ppi fu labs Subjective Subjective abdominal discomfort c/o of abdominal distention Objective Last 24 Hour Vital Signs Date Time Temp Pulse Resp B/P (MAP) Pulse Ox O2 Delivery O2 Flow Rate FiO2 08/14/17 08:00 97.7 84 20 125/66 97 Room Air 08/14/17 04:00 98.8 71 19 136/81 98 Room Air 08/14/17 00:00 98.2 79 20 133/85 97 Room Air 08/13/17 20:00 97.9 93 20 137/92 98 Room Air 08/13/17 16:00 97.7 77 20 128/86 97 Room Air 08/13/17 12:00 96.6 73 20 138/78 100 Room Air Laboratory Tests Test 11/8/17 12:18 Sodium Level 144 MMOL/L (136-145) Potassium Level 2.6 MMOL/L (3.5-5.1) *L Chloride Level 112 MMOL/L (98-107) H Carbon Dioxide Level 18 MMOL/L (21-32) L Anion Gap 13 mmol/L (5-15) Blood Urea Nitrogen 8 mg/dL (7-18) Creatinine 0.7 MG/DL (0.55-1.30) Estimat Glomerular Filtration Rate > 60 mL/min (>60) Glucose Level 71 MG/DL (74-106) L Calcium Level 6.3 MG/DL (8.5-10.1) #L Height (Feet): 5 Height (Inches): 4.00 Weight (Pounds): 200 General Appearance: WD/WN, no apparent distress, alert Cardiovascular: normal rate Respiratory/Chest: normal breath sounds, no respiratory distress Abdominal Exam: normal bowel sounds, non tender, soft Extremities: normal range of motion, non-tender Emily Braxton N.P. Aug 14, 2017 11:14
--- NOTE | 2017-08-14 11:14 | GI Progress Note ---
Assessment/Plan Problems: (1) Peritoneal carcinomatosis ICD Codes: C78.6 - Secondary malignant neoplasm of retroperitoneum and peritoneum; C80.1 - Malignant (primary) neoplasm, unspecified SNOMED: 078897705, 439579857 (2) Abdominal pain ICD Codes: R10.9 - Unspecified abdominal pain SNOMED: 66231472 Qualifiers: Qualified Codes: R10.13 - Epigastric pain (3) Ovarian cancer ICD Codes: C56.9 - Malignant neoplasm of unspecified ovary SNOMED: 621861177 Qualifiers: Qualified Codes: C56.9 - Malignant neoplasm of unspecified ovary Status: stable Status Narrative Discussed with Dr. Chavez. Assessment/Plan s/p EGD 05/22 SUMMARY FINDINGS: Possible bile induced gastritis/gastropathy, status post biopsy, otherwise normal upper endoscopic examination. - Biopsies from EGD >> negative s/p colonoscopy in June 2017 at [facility] >> unremarkable per patient KUB/CXR reviewed >> unremarkable results CT chest/AP reviewed >> see full report. - Peritoneal carcinomatosis with overall worsening and interval increased disease burden compared to the exam from 05/20/17. Greater number and size of peritoneal tumors demonstrated. Moderate ascites noted. - Inflammatory enteritis versus bowel wall involvement by tumor involving segment of small bowel in the right lower quadrant. - No evidence of bowel obstruction. okay for DC per GI standpoint fu oncology consult, also has primary onc at [facility] start patient on Aldactone 100 mg daily, will consider future paracentesis if abdominal pain/distention persists regular diet, tolerating pain mgmt cont ppi fu labs Subjective Subjective abdominal discomfort c/o of abdominal distention Objective Last 24 Hour Vital Signs Date Time Temp Pulse Resp B/P (MAP) Pulse Ox O2 Delivery O2 Flow Rate FiO2 08/14/17 08:00 97.7 84 20 125/66 97 Room Air 08/14/17 04:00 98.8 71 19 136/81 98 Room Air 08/14/17 00:00 98.2 79 20 133/85 97 Room Air 08/13/17 20:00 97.9 93 20 137/92 98 Room Air 08/13/17 16:00 97.7 77 20 128/86 97 Room Air 08/13/17 12:00 96.6 73 20 138/78 100 Room Air Laboratory Tests Test 11/8/17 12:18 Sodium Level 144 MMOL/L (136-145) Potassium Level 2.6 MMOL/L (3.5-5.1) *L Chloride Level 112 MMOL/L (98-107) H Carbon Dioxide Level 18 MMOL/L (21-32) L Anion Gap 13 mmol/L (5-15) Blood Urea Nitrogen 8 mg/dL (7-18) Creatinine 0.7 MG/DL (0.55-1.30) Estimat Glomerular Filtration Rate > 60 mL/min (>60) Glucose Level 71 MG/DL (74-106) L Calcium Level 6.3 MG/DL (8.5-10.1) #L Height (Feet): 5 Height (Inches): 4.00 Weight (Pounds): 200 General Appearance: WD/WN, no apparent distress, alert Cardiovascular: normal rate Respiratory/Chest: normal breath sounds, no respiratory distress Abdominal Exam: normal bowel sounds, non tender, soft Extremities: normal range of motion, non-tender Emily Braxton N.P. Aug 14, 2017 11:14
--- NOTE | 2017-08-14 11:14 | GI Progress Note ---
Assessment/Plan Problems: (1) Peritoneal carcinomatosis ICD Codes: C78.6 - Secondary malignant neoplasm of retroperitoneum and peritoneum; C80.1 - Malignant (primary) neoplasm, unspecified SNOMED: 831080234, 956959767 (2) Abdominal pain ICD Codes: R10.9 - Unspecified abdominal pain SNOMED: 02589684 Qualifiers: Qualified Codes: R10.13 - Epigastric pain (3) Ovarian cancer ICD Codes: C56.9 - Malignant neoplasm of unspecified ovary SNOMED: [id number] Qualifiers: Qualified Codes: C56.9 - Malignant neoplasm of unspecified ovary Status: stable Status Narrative Discussed with Dr. Chavez. Assessment/Plan s/p EGD 05/22 SUMMARY FINDINGS: Possible bile induced gastritis/gastropathy, status post biopsy, otherwise normal upper endoscopic examination. - Biopsies from EGD >> negative s/p colonoscopy in June 2017 at [facility] >> unremarkable per patient KUB/CXR reviewed >> unremarkable results CT chest/AP reviewed >> see full report. - Peritoneal carcinomatosis with overall worsening and interval increased disease burden compared to the exam from 05/20/17. Greater number and size of peritoneal tumors demonstrated. Moderate ascites noted. - Inflammatory enteritis versus bowel wall involvement by tumor involving segment of small bowel in the right lower quadrant. - No evidence of bowel obstruction. okay for DC per GI standpoint fu oncology consult, also has primary onc at [facility] start patient on Aldactone 100 mg daily, will consider future paracentesis if abdominal pain/distention persists regular diet, tolerating pain mgmt cont ppi fu labs Subjective Subjective abdominal discomfort c/o of abdominal distention Objective Last 24 Hour Vital Signs Date Time Temp Pulse Resp B/P (MAP) Pulse Ox O2 Delivery O2 Flow Rate FiO2 08/14/17 08:00 97.7 84 20 125/66 97 Room Air 08/14/17 04:00 98.8 71 19 136/81 98 Room Air 08/14/17 00:00 98.2 79 20 133/85 97 Room Air 08/13/17 20:00 97.9 93 20 137/92 98 Room Air 08/13/17 16:00 97.7 77 20 128/86 97 Room Air 08/13/17 12:00 96.6 73 20 138/78 100 Room Air Laboratory Tests Test 11/8/17 12:18 Sodium Level 144 MMOL/L (136-145) Potassium Level 2.6 MMOL/L (3.5-5.1) *L Chloride Level 112 MMOL/L (98-107) H Carbon Dioxide Level 18 MMOL/L (21-32) L Anion Gap 13 mmol/L (5-15) Blood Urea Nitrogen 8 mg/dL (7-18) Creatinine 0.7 MG/DL (0.55-1.30) Estimat Glomerular Filtration Rate > 60 mL/min (>60) Glucose Level 71 MG/DL (74-106) L Calcium Level 6.3 MG/DL (8.5-10.1) #L Height (Feet): 5 Height (Inches): 4.00 Weight (Pounds): 200 General Appearance: WD/WN, no apparent distress, alert Cardiovascular: normal rate Respiratory/Chest: normal breath sounds, no respiratory distress Abdominal Exam: normal bowel sounds, non tender, soft Extremities: normal range of motion, non-tender Emily Braxton N.P. Aug 14, 2017 11:14
[2017-08-14 12:00] VITALS: BP 123/84
[2017-08-14 13:56] LABS: ANION GAP 7 mmol/L (5-15); BLOOD UREA NITROGEN 8 mg/dL (7-18); CALCIUM 8.7 MG/DL (8.5-10.1); CARBON DIOXIDE 26 MMOL/L (21-32); CHLORIDE 104 MMOL/L (98-107); CREATININE 1.1 MG/DL (0.55-1.30); POTASSIUM 4.5 MMOL/L (3.5-5.1); SODIUM 137 MMOL/L (136-145)
[2017-08-14] MEDS ORDERED: Tubing IV Secondary IV ONE (14:06)
[2017-08-14] MEDS ORDERED: 1/2 NS 1000ml IV ONE ×2 (14:06→20:56)
[2017-08-14 16:18] VITALS: BP 145/96
[2017-08-14 19:46] VITALS: BP 148/95
[2017-08-14] MEDS ORDERED: Dyna-Hex 2% Top Sol 2oz TOPIC SCH (20:00)
[2017-08-14] MEDS ORDERED: Ciprofloxacin 500mg tab ORAL SCH (21:00)
[2017-08-15] MEDS ORDERED: Spironolactone 50mg tab ORAL SCH (09:00)
--- NOTE | 2017-08-15 15:20 | Discharge Summary ---
Discharge Summary Hospital Course Date of Admission Aug 10, 2017 at 22:01 Date of Discharge Aug 14, 2017 at 20:57 Admitting Diagnosis abdominal pain HPI Kim Gallagher is a 57 year old female who was admitted on Aug 10, 2017 at 22: 01 for Abdominal Pain Hospital Course [id number] Discharge Discharge Disposition Patient was discharged to Home () Discharge Diagnoses: Fara Espinoza NP Aug 15, 2017 15:20
--- NOTE | 2017-08-15 15:20 | Discharge Summary ---
Discharge Summary Hospital Course Date of Admission Aug 10, 2017 at 22:01 Date of Discharge Aug 14, 2017 at 20:57 Admitting Diagnosis abdominal pain HPI Kim Gallagher is a 57 year old female who was admitted on Aug 10, 2017 at 22: 01 for Abdominal Pain Hospital Course [id number] Discharge Discharge Disposition Patient was discharged to Home () Discharge Diagnoses: Fara Espinoza NP Aug 15, 2017 15:20
--- NOTE | 2017-08-15 15:20 | Discharge Summary ---
Discharge Summary Hospital Course Date of Admission Aug 10, 2017 at 22:01 Date of Discharge Aug 14, 2017 at 20:57 Admitting Diagnosis abdominal pain HPI Kim Gallagher is a 57 year old female who was admitted on Aug 10, 2017 at 22: 01 for Abdominal Pain Hospital Course [id number] Discharge Discharge Disposition Patient was discharged to Home () Discharge Diagnoses: Fara Espinoza NP Aug 15, 2017 15:20
--- NOTE | 2017-08-16 05:02 | Discharge Summary 2 SIG ---
DATE OF ADMISSION: 08/10/2017 DATE OF DISCHARGE: 08/14/2017 CONSULTANTS: 1. Marcus Chavez M.D. 2. Thomas Olivares M.D. BRIEF HOSPITAL COURSE: The patient is a 57-year-old female with history of diverticulitis, presented to ED complaining of acute onset minimal bleeding from the rectum and minimal bleeding in the upper GI, described as passing streaks of blood in the stools. She complained of abdominal pain localized in the periumbilical area, however, denied fever or chills. She has history of ovarian carcinoma, status post chemotherapy. On evaluation at ED, laboratories with normal WBC. She was hypokalemic, potassium 3.0, and urinalysis was with pyuria. Abdominal x-ray done showed no acute disease and chest x-ray showed no acute findings. She had a CAT scan of the chest, abdomen and pelvis that showed peritoneal carcinomatosis with overall worsening and interval increase compared to prior exam from 05/20/2017. There was increase in number and size of peritoneal tumors demonstrated with moderate ascites noted. There was no evidence of bowel obstruction. She was given proton pump inhibitor and was tolerating regular diet. She was given pain management consisting of Dilaudid and lidocaine patch. She was advised paracentesis, which can be done as an outpatient and to follow up with Oncology at [facility]. She was given ciprofloxacin for urinary tract infection. C. difficile was checked and was negative. Antibiotic was switched to p.o. She was eventually discharged home.The patient appealed discharge on 08/13/2017 and eventually went home on 08/14/2017. FINAL DIAGNOSES: 1. Peritoneal carcinomatosis, secondary to malignant neoplasm. 2. Ovarian cancer. 3. Intractable abdominal pain. 4. Lumbar degenerative disk disease. 5. Lumbar spondylosis. 6. Lumbar radiculopathy. DISPOSITION: The patient was discharged home. DISCHARGE MEDICATIONS: Refer to medication list. Christos Pandya M.D. I have been assigned to dictate discharge summary on this account and I was not involved in the patient's management. Fara Espinoza N.P. DR: ABIDA JOB#: [id number] CC: [id number]
== END 2017-08-14 20:57 | disposition home or self-care (01) | DRG 375 ==
LOC: EMR 21:50 → EDBEDREQ 21:53 → 4E 22:01 → EDBEDREQ 22:57 → 4E 08-12 20:00
DX: C78.6 Secondary malignant neoplasm of retroperitoneum and peritoneum (principal); R18.8 Other ascites; K57.92 Diverticulitis of intestine, part unspecified, without perforation or abscess without bleeding; N39.0 Urinary tract infection, site not specified; G89.29 Other chronic pain; R10.9 Unspecified abdominal pain; E87.6 Hypokalemia; Z88.6 Allergy status to analgesic agent; Z85.43 Personal history of malignant neoplasm of ovary; I10 Essential (primary) hypertension; M47.26 Other spondylosis with radiculopathy, lumbar region; K83.9 Disease of biliary tract, unspecified; Z90.722 Acquired absence of ovaries, bilateral; Z90.79 Acquired absence of other genital organ(s); Z90.710 Acquired absence of both cervix and uterus; Z91.018 Allergy to other foods; Z91.040 Latex allergy status
CPT/HCPCS: 36415; 71010; 71260; 74000; 74177; 80048; 80053; 81003; 82150; 83690; 84484; 85025; 85610; 85730; 86850; 86900; 86901; 87324; 99285; J2405; J2765; J8499